=== PATIENT | female | born 1985 | race Caucasian/White ===

== ENCOUNTER 2025-07-09 10:48 | Outpatient (CLI) | payer MEDICAID, SELFPAY ==
--- OUTSIDE RECORDS SUMMARY | 2025-05-17 08:15 | XMS_ITS | Encounter Summary ---
Author Organization Healthcare Address [address] [place] [address] Care Team Providers Care Pet Store Merchandiser Name Role Phone Pcp, No Primary Care Provider Felecia Lloyd Unavailable Unavailable Reason for Referral * Consultation (Routine) - Authorized Specialty Diagnoses / Procedures Referred By Gee t Referred To Contact Psychiatry Diagnoses Schizophrenia, unspecified type (CMS/HCC) Emerald Berger APRN, DNP [address] [address] Phone: tel: fax: Referral ID Status Reason Start Date Expiration Date Visits Requested Visits Authorized [id number] Authorized Specialty Services Required 05/17/2025 11/16/2026 1 1 Reason for Visit * Reason Comments Initial Visit Encounter Details Date Type Department Care Team ([facility] Contact Info) Description 05/17/2025 9:15 AM EDT Initial Medical Office Building Obstetrics and Gynecology [address] [facility], [address] [place] [address] Emerald Berger APRN, DNP [address] [address] [place]: [id number] Social History Tobacco Use Types Packs/Day Years Used Date Smoking Tobacco: Every Day Cigarettes Smokeless Tobacco: Never Alcohol Use Standard Drinks/Week Comments Not Currently 0 (1 standard drink = 0.6 oz pur e alcohol) no alcohol for 9 weeks CAGE ASSESSMENT Answer Date Recorded Cage unable to access Not on file 03/19/2024 Maximum number of drinks you had on a given occasion in the last month? 5 or more drinks 03/19/2024 How many alcoholic Beverages do you typically drink in a week? 8 - 14 per week 03/19/2024 Have you ever felt you shoul d CUT down on your drinking? 0 03/19/2024 Have you been ANNOYED by peo ple criticizing your drinking? 0 03/19/2024 Have you felt GUILTY about your drinking? 0 03/19/2024 Have you had a drink first t paul in the morning (EYE-MARINE ELECTRICIAN APPRENTICE) to steady your nerves or to get rid of a hangover? 0 03/19/2024 CAGE Questionnaire Score 0 024 Estimated Date of Delivery Comme nts Yes 08/13/2025 Based on Ultraso und Sex and Gender Information Value Date Recorded Sex Assigned at Female 02/01/2023 3:22 PM EDT Legal Sex Female 6:55 PM EDT Gender Identity Female 02/01/2023 3:22 PM EDT Sexual Orientation Not on file documented as of this encounter Last Filed Vital Signs Vital Sign Reading Time Taken Comments Blood Pressure 123/81 05/17/2025 9:41 AM EDT Pulse 92 05/17/2025 9:41 AM EDT Temperature 35.3 C (95.6 F) 05/17/2025 9:41 AM EDT Respiratory Rate 17 05/17/2025 9:41 AM EDT Oxygen Saturation 99% 05/17/2025 9:41 AM EDT Inhaled Oxygen Concentration - - Weight 88.6 kg (195 lb 6.4 oz) 05/17/2025 9:41 A M EDT Height 185.4 cm (6' 1 ) 05/17/2025 9:41 AM EDT Body Mass Index 25.78 05/17/2025 9:41 AM EDT documented in this encounter Miscellaneous Notes * Progress Notes - Emerald Berger, ELECTRIC ORGAN ASSEMBLER AND CHECKER, DNP - 05/17/2025 9:15 AM EDT Initial Note Subjective Caitlin Goldberg is a 39 y.o. presenting for an initial visit. LMP unknown (around November 2024). History of irregular menses and also has Nexplanon in place that was placed 13 years ago. Pos UPT early January 2025. Denies VB since LMP. Starting to feel movement. Social history: Recently incarcerated (released 04/2024). Currently homeless (has been homeless the majority of the past 10 years). At times stays in hotel rooms. Mother is with her today and support person. Children are living with mother. History of alcohol abuse, but has not been drinking for 9 weeks. Also a history of polysubstance abuse. OB History Para Term AB Living 4 3 3 3 SAB IAB Ectopic Multiple Live Births 3 # Outcome Date GA Lbr Aleksandar/2nd Weight Sex Type Anes PTL Lv 4 Current 3 Term 2011 F Vag-Spont 2 Term 2009 F Vag-Spont 1 Term 2003 M Vag-Spont Past Medical History She has a past medical history of Generalized anxiety disorder, Hypoglycemia, PTSD (post-traumatic stress disorder), and Schizophrenia. Past Surgical History She has a past surgical history that includes tonsillectomy w/ adenoidectomy. Social History She reports that she has been smoking cigarettes. She has never used smokeless tobacco. She reportsthat she does not currently use alcohol. She reports that she does not currently use drugs after having used the following drugs: Methamphetamines, Heroin, Fentanyl, and Marijuana. Family History Her family history includes Breast cancer in an other family member; Diabetes in her mother's brother; Hypertension in her father; Throat cancer in her paternal grandmother. Allergies She is allergic to toradol [ketorolac tromethamine]. Current Medications She has a current medication list which includes the following prescription(s): vitamins. Review of Systems See HPI, otherwise neg. Objective Physical Exam Visit Vitals BP 123/81 Pulse 92 Temp (!) 35.3 ??C (95.6 ??F) (Tympanic) Resp 17 Pregravid weight: Pregravid weight not on file Pregravid BMI: Could not be calculated Body mass index is 25.78 kg/m??. See encounter summary and flowsheet for exam details. Physical Exam Vitals and nursing note reviewed. Skin: Comments: Nexplanon palpated in LUE Neurological: Mental Status: She is alert and oriented to person, place, and time. Psychiatric: Mood and Affect: Affect is labile and tearful. Thought Content: Thought content normal. Judgment: Judgment normal. Assessment/Plan Assessment & Plan Encounter for supervision of normal , antepartum, unspecified Patient became agitated and left prior to completion of appointment today. She did return and agreeto a BSUS and labs. Declines Nexplanon removal. RTC in 2 weeks Orders: Rubella Antibody IgG; Future CBC W/O Differential; Future Urine Culture; Future Type and Screen; Future Chlamydia trachomatis DNA by PCR; Future HIV 1 & 2 Antibody/Antigen Screen w/Reflex to HIV 1/2 Differentiation Hepatitis B Surface Antigen; Future Hepatitis C Antibody w/Reflex to HCV Quant PCR; Future Neisseria gonorrhea DNA by PCR; Future Treponema Pallidum (Syphilis) Antibodies with Reflex to RPR and RPR Titer (Those with NO known Syphilis); Future Vit-Fe Fumarate-FA ( Vitamins) 28-0.8 MG tablet; Take 1 tablet by mouth daily. Alcoholism (CMS/HCC) -Not currently using, last use 9 weeks ago Schizophrenia, unspecified type (CMS/HCC) -Not currently on medication -Psych referral placed today Orders: Ambulatory referral to Psychiatry; Future Substance use disorder -Not currently using any substance other than marijuana. Verbally agreed to UDS. -Discussed Pathways, but patient declines referral documented in this encounter Plan of Treatment Scheduled Orders Name Type Priority Associated Diagnoses Orde r Schedule Rubella Antibody IgG Lab Routine Encounter for supervision of normal , antepartum, unspecified Expected: 05/15/2025 (Approximate), Expires: 11/12/2026 CBC W/O Differential Lab Routine Encounter for supervision of normal , antepartum, unspecified Expected: 05/15/2025 (Approximate), Expires: 11/12/2026 Type and Screen Lab Routine Encounter for supervision of normal , antepartum, unspecified Expected: 05/15/2025 (Approximate), Expires: 11/12/2026 HIV 1 & 2 Antibody/Antigen Screen w/Reflex to HIV 1/2 Differentiation Lab Routine Encounter for supervision of normal , antepartum, unspecified Ordered: 05/15/2025 Hepatitis B Surface Antigen Lab Routine Encounter for supervision of normal , antepartum, unspecified Expected: 05/15/2025 (Approximate), Expires: 11/12/2026 Hepatitis C Antibody w/Reflex to HCV Quant PCR Lab Routine Encounter for supervision of normal , antepartum, unspecified Expected: 05/15/2025 (Approximate), Expires: 11/12/2026 Treponema Pallidum (Syphilis) Antibodies with Reflex to RPR and RPR Titer (Those with NO known Syphilis) Lab Routine Encounter for supervision of normal , antepartum, unspecified Expected: 05/15/2025 (Approximate), Expires: 11/12/2026 HIV 1 & 2 Antibody/Antigen Screen Lab Routine Encounter for supervision of normal , antepartum, unspecified Ordered: 05/15/2025 Scheduled Referrals Name Type Priority Associated Diagnoses Order Schedule Ambulatory referral to Psychiatry Outpatient Referral Routine Schizophrenia, unspecified type ([facility]) 1 Occurrences starting 05/17/2025 until 11/18/2026 documented as of this encounter Procedures Procedure Name Priority Date/Time Associated Diagnosis Comments CHLAMYDIA TRACHOMATIS DNA BY PCR Routine 05/17/2025 12:14 PM EDT Encounter for supervision of normal , antepartum, unspecified NEISSERIA GONORRHEA DNA BY PCR Routine 05/17/2025 12:14 PM EDT Encounter for supervision of normal , antepartum, unspecified URINE CULTURE Routine 05/17/2025 12:14 PM EDT Encounter for supervision of normal , antepartum, unspecified documented in this encounter Results * Neisseria gonorrhea DNA by PCR (05/17/2025 12:14 PM EDT) Neisseria gonorrhea DNA PCR Result Not Detected Not Detected. 05/18/2025 4:20 PM EDT [facility] Urine Urine specimen / Unknown Non-blood Collection / Unknown 05/17/2025 12:14 PM EDT 05/17/2025 12:14 PM EDT Narrative [facility] - 05/18/2025 4:20 PM EDT This test is performed by the Carvajal m2000 instrument for Real Time PCR C. trachomatis and N. gonorrhea. This test is FDA approved for use with endocervical, vaginal, and urine specimens. This test is used for clinical purposes. It should not be regarded as invesigational or for research. The [facility] Clinical Microbiology Laboratory is certified under the Clinical Laboratory Improvement Amendments of 1988 (CLIA-88) as qualified to perform high complexity clinical laboratory testing. Emerald Berger APRN, MIRA LAB MICROBIOLOGY - GE NERAL ORDERABLES Final Result Performing Organization Address City/[facility]/[place] [address] * Chlamydia trachomatis DNA by PCR (05/17/2025 12:14 PM EDT) Chlamydia trachomatis DNA PCR Result Not Detected Not Detected 05/18/2025 4:20 PM EDT [facility] Urine Urine specimen / Unknown Non-blood Collection / Unknown 05/17/2025 12:14 PM EDT 05/17/2025 12:14 PM EDT Narrative [facility] - 05/18/2025 4:20 PM EDT This test is performed by the Carvajal m2000 instrument for Real Time PCR C. trachomatis and N. gonorrhea. This test is FDA approved for use with endocervical, vaginal, and urine specimens. This test is used for clinical purposes. It should not be regarded as invesigational or for research. The [facility] Clinical Microbiology Laboratory is certified under the Clinical Laboratory Improvement Amendments of 1988 (CLIA-88) as qualified to perform high complexity clinical laboratory testing. Emerald Berger APRN, MIRA LAB MICROBIOLOGY - GE NERAL ORDERABLES Final Result Performing Organization Address [facility]/[place] [address] * (ABNORMAL) Urine Culture (05/17/2025 12:14 PM EDT) Culture >=100,000 CFU/mL - Biotype 1 Escherichia coli ESBL(AA) MINDY 05/21/2025 12:32 PM EDT [facility] Comment: This isolate has been identified using the FDA Approved MALDI Delivyper CA System Edited result: Previously reported as Gram Negative Santy on 05/18/2025 at 1710 EDT. Edited result: Previously reported as Escherichia coli on 05/20/2025 at 1415 EDT. Culture >=100,000 CFU/mL - Biotype 2 Escherichia coli ESBL(AA) MINDY 05/21/2025 12:32 PM EDT [facility] Comment: This isolate has been identified using the FDA Approved MALDI Delivyper CA System The organism value for this result has been updated. These results have been appended to the previously preliminary verified report. Edited result: Previously reported as Gram Negative Santy on 05/19/2025 at 1353 EDT. Edited result: Previously reported as Escherichia coli on 05/20/2025 at 1415 EDT. Urine Urine specimen obtained by clean catch procedure / Unknown Non-blood Collection / Unknown 05/17/2025 12:14 PM EDT 05/17/2025 12:14 PM EDT Narrative Organism Antibiotic Method Susceptibility Escherichia coli ESBL Ampicillin MINDY >16 ug/ml: Resistant Escherichia coli ESBL Ampicillin/Sulbactam MINDY 16/8 ug/ml: Resistant Escherichia coli ESBL Aztreonam MINDY >16 ug/ml: Resistant Escherichia coli ESBL Cefazolin MINDY >16 ug/ml: Resistant Comment:Breakpoints when cefazolin is used for therapy of uncomplicated UTIs due to E. coli, K. pneumoniae, and P. mirabilis. Breakpoints are based on a dosage regimen of 1 g administered every 12 hours. Cefazolin should be used as a surrogate to predict susceptibility for all oral cephalosporins (including cephalexin and cefdinir) to E. coli, Klebsiella spp., and P. mirabilis isolated from the urine. Escherichia coli ESBL Cefepime MINDY 8 ug/ml: Resistant Escherichia coli ESBL Ceftriaxone MINDY >32 ug/ml: Resistant Escherichia coli ESBL Ciprofloxacin MINDY 0.5 ug/ml: Intermediate Escherichia coli ESBL Ertapenem MINDY <=0.25 ug/ml: Susceptible Escherichia coli ESBL Gentamicin MINDY <=2 ug/ml: Susceptible Escherichia coli ESBL Levofloxacin MINDY 0.5 ug/ml: Susceptible Escherichia coli ESBL Meropenem MINDY <=0.5 ug/ml: Susceptible Escherichia coli ESBL Nitrofurantoin MINDY <=16 ug/ml: Susceptible Escherichia coli ESBL Piperacillin/Tazobactam MINDY <=2/4 ug/ml: Resistant Escherichia coli ESBL Tetracycline MINDY <=2 ug/ml: Susceptible Escherichia coli ESBL Tobramycin MINDY <=2 ug/ml: Susceptible Escherichia coli ESBL Trimethoprim/Sulfa methoxazol e MINDY >2/38 ug/ml: Resistant Escherichia coli ESBL Ampicillin MINDY >16 ug/ml: Resistant Escherichia coli ESBL Ampicillin/Sulbactam MINDY >16/8 ug/ml: Resistant Escherichia coli ESBL Aztreonam MINDY 8 ug/ml: Resistant Escherichia coli ESBL Cefazolin MINDY >16 ug/ml: Resistant Comment:Breakpoints when cefazolin is used for therapy of uncomplicated UTIs due to E. coli, K. pneumoniae, and P. mirabilis. Breakpoints are based on a dosage regimen of 1 g administered every 12 hours. Cefazolin should be used as a surrogate to predict susceptibility for all oral cephalosporins (including cephalexin and cefdinir) to E. coli, Klebsiella spp., and P. mirabilis isolated from the urine. Escherichia coli ESBL Cefepime MINDY 4 ug/ml: Resistant Escherichia coli ESBL Ceftriaxone MINDY >32 ug/ml: Resistant Escherichia coli ESBL Ciprofloxacin MINDY 0.5 ug/ml: Intermediate Escherichia coli ESBL Ertapenem MINDY <=0.25 ug/ml: Susceptible Escherichia coli ESBL Gentamicin MINDY <=2 ug/ml: Susceptible Escherichia coli ESBL Levofloxacin MINDY 0.5 ug/ml: Susceptible Escherichia coli ESBL Meropenem MINDY <=0.5 ug/ml: Susceptible Escherichia coli ESBL Nitrofurantoin MINDY <=16 ug/ml: Susceptible Escherichia coli ESBL Piperacillin/Tazobactam MINDY <=2/4 ug/ml: Resistant Escherichia coli ESBL Tetracycline MINDY <=2 ug/ml: Susceptible Escherichia coli ESBL Tobramycin MINDY <=2 ug/ml: Susceptible Escherichia coli ESBL Trimethoprim/Sulfa methoxazol e MINDY 1/19 ug/ml: Susceptible Emerald Berger ELECTRIC ORGAN ASSEMBLER AND CHECKER, DNP LAB MICROBIOLOGY - GE NERAL [place] [address] documented in this encounter Visit Diagnoses Diagnosis Encounter for supervision of normal , antepartum, unspecified - Primary Alcoholism (CMS/HCC) Other and unspecified alcohol dependence, unspecified drinking behavior Schizophrenia, unspecified type (CMS/HCC) Substance use disorder documented in this encounter Additional Health Concerns Assessment Noted Time A fall risk assessment has been complete d for the patient 05/17/2025 9:55 AM EDT A Body Mass Index follow-up plan has been documented for the patient 05/17/2025 10:48 AM EDT documented as of this encounter Care Teams Pet Store Merchandiser Relationship Specialty Start Date End Date Pcp, [place] [address] PCP - General Family Medicine 02/01/23 Felecia Monreal Community Health Worker 05/17/25 documented as of this encounter
--- OUTSIDE RECORDS SUMMARY | 2025-05-17 09:46 | XMS_ITS | Encounter Summary ---
Author Organization Healthcare Address [address] [place] [address] Care Team Providers Care Bank Advisor Name Role Phone Pcp, No Primary Care Provider Felecia Lloyd Unavailable Unavailable Reason for Visit * Imaging (Routine) - Closed Specialty Diagnoses / Procedures Referred By Gee t Referred To Contact Diagnoses Substance use disorder AMA (advanced maternal age) multigravida 35+, unspecified trimester Late care affecting , antepartum Procedures OB US Detail Anatomy OB US 14+ Weeks Anatomy Scan Emerald Berger, CRITICAL POWER INSTALL TECHNICIAN, DNP [address] [address] Phone: tel: fax: Referral ID Status Reason Start Date Expiration Date Visits Re quested Visits Authorized [id number] Closed 05/17/2025 11/16/2026 1 1 Encounter Details Date Type Department Care Team (Latest Contact Info) Description 05/17/2025 10:46 AM EDT - 05/17/2025 11:59 PM EDT Hospital Encounter Medical Office Building Obstetrics and Gynecology [address] [facility], [address] [place] [address] Encounter for supervision of normal , antepartum, [...] drink first t paul in the morning (EYE-ACCOUNTING TUTOR) to steady your nerves or to get [...] Please navigate to the Imaging tab in [employer] for review. This message has been generated by the interface. Narrative Procedure Note mEily Muinz MD - 05/17/2025 IMPRESSION: The OB Ultrasound you requested has been resulted. Please navigate to theImaging tab in [employer] for review. This message has been generated by [facility] Emerald Berger APRN, DNP IMG OB US PROCEDURES Final Result [...] documented as of this encounter Care Teams Bank Advisor Relationship Specialty Start Date End Date Pcp, Shruthi [address] [place] [address] PCP - General Family Medicine 02/01/23 Felecia Monreal [facility] Worker 05/17/25 documented as of this encounter
--- OUTSIDE RECORDS SUMMARY | 2025-06-02 13:30 | XMS_ITS | Encounter Summary ---
Author Organization Healthcare Address [address] [place] [address] Care Team Providers Care Double Head Machine Operator Name Role Phone Pcp, No Primary Care Provider Unavailabl e Felecia Monreal Unavailable Unavailable Reason for Visit * Reason Comments Routine Visit Encounter Details Date Type Department Care Team (Latest Contact Info) Description 06/02/2025 2:30 PM EDT Routine Medical Office Building Obstetrics and Gynecology [address], [address] [place] [address] Emerald Berger, CABIN CLEANER, DNP [address] [place] [address] Insufficient care in third trimester (Primary Dx); [...] drink first t paul in the morning (EYE-BRAND MARKETING COORDINATOR) to steady your nerves or to get [...] money problems,housing, access to food, and child development instructor. If you can???t get to medical appointments, [...] symptoms Abnormal vaginal discharge Phone Numbers [facility] ([facility]): [facility] Obstetrics & Gynecology: [facility] Clinic: [facility]: Family Practice: [facility] Obstetrics & Gynecology [place]: [facility] Obstetrics & Gynecology [place]: What Is Group B Strep? Group B [...] or irregular heart rate Beginning to Breastfeed: Bowo-tt-Pdxp What is dgnd-mm-eqal? After , your nurse will clean and dry your baby. Your baby will then be placed on your chest dktb-ut-yoif right away. Your baby???s shoulders should be [...] the first time. Your baby will stay hvan-lo-sctx with you for as long as you like after . If you get too sleepy, let your nurse know. Only you or your partner can do qzpg-ks-plrv with your baby these first few hours. Visitors may come in, but you must not pass your baby around during this time. This could cause your baby to get cold and then sick. Msgt-ks-pnfw is a great way to remind your [...] also lowers your risk of depression. Being fwfw-wc-jbrj with your baby can help reduce your [...] for feeding. Placing your baby in the bdev-qj-jxfn position on your chest. This can help [...] documented as of this encounter Care Teams Double Head Machine Operator Relationship Specialty Start Date End Date Pcp, [place] [address] PCP - General Family Medicine 02/01/23 Felecia Monreal [facility] Worker 05/17/25 documented as of this encounter
--- OUTSIDE RECORDS SUMMARY | 2025-07-09 10:57 | XMS_ITS | Clinical Summary ---
Author Organization Healthcare Address [address] [place] [address] Care Team Providers Care Avionics System Engineer Name Role Phone Pcp, No Primary Care Provider Felecia Lloyd Unavailable Unavailable Allergies Active Allergy Reactions Criticality Noted Date Comments Ketorolac Tromethamine Hives Medium 02/01/2023 Medications * This document contains information received from the source organization and may not represent a complete record from that organization. Vit-Fe Fumarate-FA ( Vitamins) 28-0.8 MG tabletIndication s:Encounter for supervision of normal , antepartum, unspecified Take 1 tablet by mouth daily. 90 tablet 3 5 05/17/20 26 Active nitrofurantoin, macrocrystal-mon ohydrate, (Macrobid) 100 MG capsuleIndicatio ns:Urinary tract infection in mother during third trimester of Take 1 capsule by mouth 2 times a day. 14 capsule 5 Active Additional Information Patient not taking.Reported on 06/02/2025 famotidine (Pepcid) 20 MG tabletIndication s:Heartburn during in third trimester Take 1 tablet by mouth 2 times a day. 90 tablet 3 5 Active Active Problems Problem Noted Date Diagnosed Date Acute cholecystitis 02/01/2023 Estimated Date of Delivery Comme nts Yes 08/13/2025 Based on Ultraso und Encounters * This document contains information received from the source organization and may not represent a complete record from that organization. Date Type Department Care Team Description 07/06/2025 Telephone Medical Office Building Obstetrics and Gynecology [address] [address], [address] [place] [address] Cindy Walden MD 06/02/2025 2:30 PM EDT Routine Medical Office Building Obstetrics and Gynecology [address], [address] [place] [address] Emerald Berger APRN, DNP Insufficient care in third trimester (Primary Dx); Alcoholism (CMS/HCC); Schizophrenia, unspecified type (CMS/HCC); Substance use disorder; Heartburn during in third trimester; Urinary tract infection in mother during third trimester of 06/02/2025 Travel 05/22/2025 Results Follow-Up Medical Office Building Obstetrics and Gynecology [address] [facility] [address] [facility], [address] [place] [address] Emerald Berger APRN, DNP 05/18/2025 Results Follow-Up Medical Office Building Obstetrics and Gynecology [address] [address], [address] [place] [address] Emerald Berger APRN, DNP 05/17/2025 10:46 AM EDT - 05/17/2025 11:59 PM EDT Hospital Encounter Medical Office Building Obstetrics and Gynecology [address], [address] [place] [address] Encounter for supervision of normal , antepartum, unspecified ; Substance use disorder; AMA (advanced maternal age) multigravida 35+, unspecified trimester; Late care affecting , antepartum Discharge Disposition: Home or Self Care 05/17/2025 9:15 AM EDT Initial Medical Office Building Obstetrics and Gynecology [address] [facility] [address], [address] [place] [address] Emerald Berger APRN, DNP [place]: [id number] 05/17/2025 Patient Outreach Medical Office Building Obstetrics and Gynecology [address] [address], [address] [place] [address] Felecia Monreal Community Resources; Other ([facility] Initial Encounter) 05/17/2025 Patient Outreach Medical Office Building Obstetrics and Gynecology [address] [facility], [address] [place] [address] Felecia Monreal Community Resources; Other ( Community Health Work Program Enrollment) 05/17/2025 Travel 04/21/2025 Telephone Medical Office Building Obstetrics and Gynecology [address] [facility] [address] [facility], [address] [place] [address] Emerald Berger, MOBILE BATTERY TECHNICIAN, DNP from Last 3 Months Family History Medical History Relation Name Comments Hypertension Father Diabetes Mother's Brother Breast cancer Other great grand mother Throat cancer Paternal Grandmother Relation Name Status Comments Father Mother's Brother Other great grand mother Paternal Grandmother Social History Tobacco Use Types Packs/Day Years Used Date Smoking Tobacco: Every Day Cigarettes Smokeless Tobacco: Never Tobacco Cessation:Ready to Q uit: Not Asked; Counseling Given: Not Answered Alcohol Use Standard Drinks/Week Comments Not Currently [...] drink first t paul in the morning (EYE-INDUSTRY SEGMENT SPECIALIST) to steady your nerves or to get rid of a hangover? 0 03/19/2024 CAGE Questionnaire Score 0 024 Estimated Date of Delivery Comme nts Yes 08/13/2025 Based on Ultraso und Sex and Gender Information Value Date Recorded Sex Assigned at Female 02/01/2023 3:22 PM EDT Legal Sex Female 6:55 PM EDT Gender Identity Female 02/01/2023 3:22 PM EDT Sexual Orientation Not on file Last Filed Vital Signs Vital Sign Reading Time Taken Comments Blood Pressure 127/77 06/02/2025 3:07 PM EDT Pulse 105 06/02/2025 3:07 PM EDT Temperature 35.3 C (95.6 F) 05/17/2025 9:41 AM EDT Respiratory Rate 17 06/02/2025 3:07 PM EDT Oxygen Saturation 98% 06/02/2025 3:07 PM EDT Inhaled Oxygen Concentration - - Weight 88.3 kg (194 lb 10.7 oz) 06/02/2025 3:07 PM EDT Height 185.4 cm (6' 1 ) 05/17/2025 9:41 AM EDT Body Mass Index 25.68 05/17/2025 9:41 AM EDT Plan of Treatment Health Maintenance Due Date Last Done Comments [facility]-Depression Screening 1985 [facility]-Infant/Child/Adol SDOH Screenings 1985 [facility]-Varicella Vaccines (1 of 2 - 13+ 2-dose series) 1998 [facility]- SDOH Screenings 2003 [facility]-Adult SDOH Screenings 2003 [facility]-Pneumococcal Vaccine: Pediatrics (0 to 5 Years) and At-Risk Patients (6 to 49 Years) (1 of 2 - PCV) 2004 [facility]-DTaP,Tdap,and Td Vaccine s (1 - Tdap) 07/31/2004 2004 [facility]-Pap Smear 2006 HPV Vaccines (1 - 3-dose SCD M series) 2012 [facility]-Cervical Cancer Screening 2015 [facility]-HPV/Cotest 2015 [id number] Vaccine (1 - 2024- season) 2025 [facility]-Influenza Vaccine (#1) 2025 [facility]-RSV Vaccine: 60+ Years o r (1 - Risk 1-dose series) 06/18/2025 [facility]-Zoster Vaccines (1 of 2) 2035 [facility]-Hepatitis B Vaccines Completed 998, 06/08/1997, 05/08/1997 [facility]-Hepatitis A Vaccines Aged Out 07/07/2018 No longer eligible based on patient's age to complete this topic [facility]-HIV Screening Completed 03/19/2024 [facility]-Hepatitis C Screening Completed 2023, 02/02/2023, 01/01/2019 [facility]-Obesity Intervention Completed 025, 05/17/2025 [facility]-HIB Vaccines Aged Out No longer e ligible based on patient's age to complete this topic [facility]-IPV Vaccines Aged Out No longer e ligible based on patient's age to complete this topic [facility]-Rotavirus Vaccines Aged Out No lo nger eligible based on patient's age to complete this topic Procedures Procedure Name Priority Date/Time Associated Diagnosis Comments NEISSERIA GONORRHEA DNA BY PCR Routine 05/17/2025 12:14 PM EDT Encounter for supervision of normal , antepartum, unspecified CHLAMYDIA TRACHOMATIS DNA BY PCR Routine 05/17/2025 12:14 PM EDT Encounter for supervision of normal , antepartum, unspecified URINE CULTURE Routine 05/17/2025 12:14 PM EDT Encounter for supervision of normal , antepartum, unspecified OB US DETAIL ANATOMY Routine 05/17/2025 12:08 PM EDT Substance use disorder AMA (advanced maternal age) multigravida 35+, unspecified trimester Late care affecting , antepartum HEPATITIS C ANTIBODY - ED W/REFLEX TO HCV QUANT PCR STAT 03/19/2024 2:09 AM EDT ED HIV 1/2 ANTIBODY/ANTIGEN SCREEN WITH REFLEX TO HIV I/II DIFFERENTIATION STAT 03/19/2024 2:09 AM EDT from Last 3 Months or Most Recently Relevant to Health Maintenance Results * Chlamydia trachomatis DNA by PCR (05/17/2025 12:14 PM EDT) Chlamydia trachomatis DNA PCR Result Not Detected Not Detected 05/18/2025 4:20 PM EDT [facility] Urine Urine specimen / Unknown Non-blood Collection / Unknown 05/17/2025 12:14 PM EDT 05/17/2025 12:14 PM EDT Narrative [facility] - 05/18/2025 4:20 PM EDT This test is performed by the [employer] instrument for Real Time PCR C. trachomatis and N. gonorrhea. This test is FDA approved for use with endocervical, vaginal, and urine specimens. This test is used for clinical purposes. It should not be regarded as invesigational or for research. The [facility] is certified under the Clinical Laboratory Improvement Amendments of 1988 (CLIA-88) as qualified to perform high complexity clinical laboratory testing. Emerald Berger APRN, MIRA LAB MICROBIOLOGY - GE NERAL ORDERABLES Final Result Performing Organization Address [facility] de Phone Number [facility] [address] [place] [address] * Neisseria gonorrhea DNA by PCR (05/17/2025 12:14 PM EDT) Neisseria gonorrhea DNA PCR Result Not Detected Not Detected. 05/18/2025 4:20 PM EDT [facility] Urine Urine specimen / Unknown Non-blood Collection / Unknown 05/17/2025 12:14 PM EDT 05/17/2025 12:14 PM EDT Narrative [facility] - 05/18/2025 4:20 PM EDT This test is performed by the [employer] instrument for Real Time PCR C. trachomatis and N. gonorrhea. This test is FDA approved for use with endocervical, vaginal, and urine specimens. This test is used for clinical purposes. It should not be regarded as invesigational or for research. The [facility] is certified under the Clinical Laboratory Improvement Amendments of 1988 (CLIA-88) as qualified to perform high complexity clinical laboratory testing. Emerald Berger APRN, DNP LAB MICROBIOLOGY - NERAL ORDERABLES Final Result Performing Organization Address [facility] de Phone Number [facility] [address] [place] [address] * (ABNORMAL) Urine Culture (05/17/2025 12:14 PM EDT) Culture >=100,000 CFU/mL - Biotype 1 Escherichia coli ESBL(AA) MINDY 05/21/2025 12:32 PM EDT [facility] Comment: This isolate has been identified using the FDA Approved [employer] System Edited result: Previously reported as Gram Negative Santy on 05/18/2025 at 1710 EDT. Edited result: Previously reported as Escherichia coli on 05/20/2025 at 1415 EDT. Culture >=100,000 CFU/mL - Biotype 2 Escherichia coli ESBL(AA) MINDY 05/21/2025 12:32 PM EDT [facility] Comment: This isolate has been identified using the FDA Approved [employer] [place] System The organism value for this [...] Trimethoprim/Sulfa methoxazol e MINDY 1/19 ug/ml: Susceptible us Emerald Berger APRN, MIRA LAB MICROBIOLOGY - [employer] [facility] ORDERABLES Final Result [facility] [address] [place] [address] * OB US Detail Anatomy (05/17/2025 12:08 PM EDT) Anatomical Region Laterality Modality Body Ultrasound 05/17/2025 11:3 5 AM EDT Impressions 05/17/2025 1:45 PM EDT The OB Ultrasound you requested has been resulted. Please navigate to the Imaging tab in [employer] for review. This message has been generated by the interface. Narrative Procedure Note Emily Muniz MD - 05/17/2025 IMPRESSION: The OB Ultrasound you requested has been resulted. Please navigate to theImaging tab in [employer]Span for review. This message has been generated by theinterface. us Emerald Berger MOBILE BATTERY TECHNICIAN, DNP IMG OB US PROCEDURES Final Result * ED HIV 1/2 Antibody/Antigen Screen w/Reflex to HIV 1/2 Differentiation (03/19/2024 2:09 AM EDT) HIV 1 & 2 Antibody/Antigen Screen Non Reactive Non Reactive 03/19/2024 2:54 AM EDT [facility] Comment:Screening for HIV 1 & 2 antibodies, and P24 antigen is NONREACTIVE. No confirmatory testing is required. Blood Venous blood specimen / Unknown Venipuncture / Unknown 03/19/2024 2:09 AM EDT 03/19/2024 2:13 AM EDT [facility] LAB BLOOD ORDERABLES Fi nal Result Performing Organization Address [facility] de Phone Number [facility] [address] [place] [address] * Hepatitis C Antibody - ED (03/19/2024 2:09 AM EDT) Hepatitis C Antibody Negative Negative 03/19/2024 2:50 AM EDT [facility] Blood Venous blood specimen / Unknown Venipuncture / Unknown 03/19/2024 2:09 AM EDT 03/19/2024 2:13 AM EDT [facility] LAB BLOOD ORDERABLES Fi nal Result Performing Organization Address City/[facility] Co de Phone Number [facility] [address] [place] [address] from Last 3 Months or Most Recently Relevant to Health Maintenance Additional Health Concerns Infection Onset Date Last Indicated ESBL Comment:Urine culture collected 05/17/2025 resulted positive for Escherichia coli ESBL. This patient will require contact precautions indefinitely. Do not resolve this infection. 05/17/2025 05/17/2025 Insurance [facility] MEDICAID Advance Directives * Full Code (Latest Code Status on File) Date Activated Date Inactivated Comments 02/01/2023 5:11 PM 02/03/2023 2:15 PM Question Answer Comments Patient has decision-making capacity? Yes Care Teams Avionics System Engineer Relationship Specialty Start Date End Date Pcp, No [address] [place] [address] PCP - General Family Medicine 02/01/23 Felecia Monreal Community Health Worker 05/17/25
--- OUTSIDE RECORDS SUMMARY | 2025-07-09 10:57 | XMS_ITS | Encounter Summary ---
Author Organization Healthcare Address [address] [place] [address] Care Team Providers Care Lead Operator Name Role Phone Pcp, No Primary Care Provider Felecia Lloyd Unavailable Unavailable Encounter Details Date Type Department Care Team (Latest Contact Info) Description 06/02/2025 Travel Social History Tobacco Use Types Packs/Day Years [...] drink first t paul in the morning (EYE-HAMMER REPAIRER) to steady your nerves or to get [...] on file documented as of this encounter Plan of Treatment Not on file documented as of this encounter Visit Diagnoses Not on filedocumented in this encounter Additional Health Concerns Infection [...] documented as of this encounter Care Teams Lead Operator Relationship Specialty Start Date End Date Pcp, No [address] [place] [address] PCP - General Family Medicine 02/01/23 Felecia Monreal Community Health Worker 05/17/25 documented as of this encounter
--- OUTSIDE RECORDS SUMMARY | 2025-07-09 10:57 | XMS_ITS | Encounter Summary ---
Author Organization Healthcare Address [address] [place] [address] Care Team Providers Care Electric Locomotive Crane Operator Name Role Phone Pcp, No Primary Care Provider Unavailabl e Felecia Monreal Unavailable Unavailable Encounter Details Date Type Department Care Team ([facility] Contact Info) Description 07/06/2025 Telephone Medical Office Building Obstetrics and Gynecology [address] [facility] [address] [facility], [address] [place] [address] Cindy Walden MD [address] [facility] [address] [facility] [address] [place] [address] Social History Tobacco Use Types Packs/Day Years [...] drink first t paul in the morning (EYE-ROOF TILER) to steady your nerves or to get [...] on file documented as of this encounter Miscellaneous Notes * Telephone Encounter - Mercedes Smith - 07/06/2025 11:45 AM EST Returned call to patient, patient asking for routine appt on a Thursday morning. Offered 07/17 with Ami Lawrence APRN, pt wanting to see MD due to being 34w4d and has only seen APRNs. Explained to pt that we only have availability with APRNs on the days and times she is asking for, pt stated she would call another doctor. * Telephone Encounter - Delmy Reed - 07/06/2025 11:28 AM EST Clinical Concern/Question Reason for Call: Pt is calling to r/s 06/15 apt. States she needs a Thursday morning apt. Please call. Best contact number: [phone] (mobile) Optimal time of day to reach caller: ANYTIME Additional comments/information from caller: None Note: Please do not reply to this message. Follow-up communication and further actions as a result of this message need to be communicated with the patient directly, if the patient is not active onMyChart. If the patient is active on MyChart, they will receive notification of the communication/outcome via [employer]. documented in this encounter Plan of Treatment [...] documented as of this encounter Care Teams Electric Locomotive Crane Operator Relationship Specialty Start Date End Date Pcp, Shruthi [address] [place] [address] PCP - General Family Medicine 02/01/23 Felecia Monreal Community Health Worker 05/17/25 documented as of this encounter
--- OUTSIDE RECORDS SUMMARY | 2025-07-09 10:58 | XMS_ITS | Encounter Summary ---
Author Organization Healthcare Address [address] [place] [address] Care Team Providers Care Ski Binding Fitter And Repairer Name Role Phone Pcp, No Primary Care Provider Unavailabl e Felecia Monreal Unavailable Unavailable Reason for Visit * Reason Comments Community Resources Other Community Health Work Program Enrollment Encounter Details Date Type Department Care Team ([facility] Contact Info) Description 05/17/2025 Patient Outreach Medical Office Building Obstetrics and Gynecology [address] [facility], [address] [place] [address] Felecia Monreal Community Resources; Other ( Community Health Work Program Enrollment) Social History Tobacco Use Types Packs/Day Years [...] first t paul in the morning (EYE-MARINE SERVICE MANAGER) to steady your nerves or to get [...] as of this encounter Miscellaneous Notes * Progress Notes - Felecia Monreal - 05/17/2025 12:50 PM EDT PCW received a referral from Emerald Berger APRN, MIRA, indicating that the patient is currently experiencing homelessness and alternating between staying in a hotel and living on the street. documented in this encounter Plan of Treatment Not on file documented as of this encounter Visit Diagnoses Diagnosis Unhoused person- Primary Housing instability Need for community resource Needs assistance with community resources documented in this encounter Additional Health Concerns Assessment Noted Time A fall risk assessment has been complete d for the patient 05/17/2025 9:55 AM EDT A Body Mass Index follow-up plan has been documented for the patient 05/17/2025 10:48 AM EDT documented as of this encounter Care Teams Ski Binding Fitter And Repairer Relationship Specialty Start Date End Date Pcp, [place] [address] PCP - General Family Medicine 02/01/23 Felecia Monreal Community Health Worker 05/17/25 documented as of this encounter
--- OUTSIDE RECORDS SUMMARY | 2025-07-09 10:58 | XMS_ITS | Encounter Summary ---
Author Organization Healthcare Address [address] [place] [address] Care Team Providers Care Scudding Inspector Name Role Phone Pcp, No Primary Care Provider Unavailabl e Felecia Monreal Unavailable Unavailable Encounter Details Date Type Department Care Team ([facility] st Contact Info) Description 05/18/2025 Results Follow-Up Medical Office Building Obstetrics and Gynecology [address] [facility] [facility], [address] [place] [address] Emerald Berger, CANDY SEPARATOR ENROBING, DNP [address] [facility] [address] [place] [address] Social History Tobacco Use Types Packs/Day Years [...] drink first t paul in the morning (EYE-ASSISTANT BOILER OPERATOR) to steady your nerves or to get [...] documented as of this encounter Care Teams Scudding Inspector Relationship Specialty Start Date End Date Pcp, [place] [address] PCP - General Family Medicine 02/01/23 Felecia Monreal Community Health Worker 05/17/25 documented as of this encounter
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
--- OUTSIDE RECORDS SUMMARY | 2025-07-09 10:58 | XMS_ITS | Encounter Summary ---
Author Organization Healthcare Address [address] [place] [address] Care Team Providers Care Box Maker Name Role Phone Pcp, No Primary Care Provider Unavailabl e Felecia Monreal Unavailable Unavailable Encounter Details Date Type Department Care Team ([facility] st Contact Info) Description 05/22/2025 Results Follow-Up Medical Office Building Obstetrics and Gynecology [address], [address] [place] [address] Emerald Berger, ART SPECIALIST, DNP [address] [place] [address] Social History Tobacco Use Types [...] drink first t paul in the morning (EYE-VIDEO CAMERA OPERATOR) to steady your nerves or to [...] as of this encounter Visit Diagnoses Diagnosis Urinary tract infection in mother during third trimester of - Primary documented in this encounter Additional Health Concerns [...] documented as of this encounter Care Teams Box Maker Relationship Specialty Start Date End Date Pcp, [place] [address] PCP - General Family Medicine 02/01/23 Felecia Monreal Community Health Worker 05/17/25 documented as of this encounter
--- OUTSIDE RECORDS SUMMARY | 2025-07-09 10:59 | XMS_ITS | Encounter Summary ---
Author Organization Healthcare Address [address] [place] [address] Care Team Providers Care Structural Steel Trades Worker Name Role Phone Pcp, No Primary Care Provider Felecia Lloyd Unavailable Unavailable Encounter Details Date Type Department Care Team (Latest Contact Info) Description 05/17/2025 Travel Social History Tobacco Use Types Packs/Day [...] drink first t paul in the morning (EYE-CHAINMAN) to steady your nerves or to get [...] filedocumented in this encounter Additional Health Concerns Assessment Noted Time A fall risk assessment has been complete d for the patient 05/17/2025 9:55 AM EDT A Body Mass Index follow-up plan has been documented for the patient 05/17/2025 10:48 AM EDT documented as of this encounter Care Teams Structural Steel Trades Worker Relationship Specialty Start Date End Date Pcp, [place] [address] PCP - General Family Medicine 02/01/23 Felecia Monreal Community Health Worker 05/17/25 documented as of this encounter
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
[2025-07-09 11:12] VITALS: BMI 27.8
[2025-07-09 11:22] LABS: Microscopic, Urine URINE MICROSCOPIC (MICROSCOPIC)
[2025-07-09 11:30] VITALS: BP 139/69; PULSE 103; RESP 20; O2SAT 97; BMI 27.8
[2025-07-09 11:51] LABS: Bilirubin,Urine Negative (Negative); Color,Urine YELLOW (Yellow); Glucose,Urine (UA) Negative (Negative); Ketones,Urine Negative (Negative); Leukocyte Esterase,Urine 2+ (Negative); PH,Urine 6.5 (5.0-8.5); Protein,Urine Negative (Negative); Specific Gravity, Urine 1.015 (1.005-1.030); Urobilinogen,Urine 0.2 EU/dl (0.2)
[2025-07-09 12:12] LABS: Bacteria,Urine 2+ /lpf; RBC,Urine Occasional #/hpf (0-3)
== END 2025-07-09 12:17 | disposition home or self-care (01) ==
LOC: OBOUT 10:55 → OB 10:57
PROVIDERS: Visit Provider Obstetrics & Gynecology
DX: O99.891 Other specified diseases and conditions complicating pregnancy (principal); M54.50 Low back pain, unspecified; R10.20 Pelvic and perineal pain unspecified side; Z3A.35 35 weeks gestation of pregnancy
CPT/HCPCS: 81001; 87086; 87088; 87186; 99202

== ENCOUNTER 2025-07-14 10:47 | Outpatient (CLI) | payer MEDICAID, SELFPAY ==
--- OUTSIDE RECORDS SUMMARY | 2025-05-17 08:15 | XMS_ITS | Encounter Summary ---
Author Organization Healthcare Address [address] [place] [address] Care Team Providers Care Buffet Attendant Name Role Phone Pcp, No Primary Care Provider Felecia Lloyd Unavailable Unavailable Reason for Referral * Consultation (Routine) - Authorized Specialty Diagnoses / Procedures Referred By Gee t Referred To Contact Psychiatry Diagnoses Schizophrenia, unspecified type (CMS/HCC) Emerald Berger APRN, DNP [address] [address] Phone: tel: fax: Referral ID Status Reason Start Date Expiration Date Visits Requested Visits Authorized [id number] Authorized Specialty Services Required 05/17/2025 11/16/2026 1 1 Reason for Visit * Reason Comments Initial Visit Encounter Details Date Type Department Care Team ([facility] Contact Info) Description 05/17/2025 9:15 AM EDT Initial Medical Office Building Obstetrics and Gynecology [address], [address] [place] [address] Emerald Berger APRN, DNP [address] [address] [place]: 27w3d Social History Tobacco [...] drink first t paul in the morning (EYE-PATTERNMAKER PLASTER) to steady your nerves or to get [...] Notes * Progress Notes - Emerald Berger, ORTHOPEDICS PEDIATRIC PHYSICIAN, DNP - 05/17/2025 9:15 AM EDT Initial [...] Psychiatry Outpatient Referral Routine Schizophrenia, unspecified type ([facility]) 1 Occurrences starting 05/17/2025 until 11/18/2026 documented [...] Detected Not Detected. 05/18/2025 4:20 PM EDT [facility] Urine Urine specimen / Unknown Non-blood Collection / Unknown 05/17/2025 12:14 PM EDT 05/17/2025 12:14 PM EDT Narrative [facility] - 05/18/2025 4:20 PM EDT This test is performed by the Carvajal m2000 instrument for Real Time PCR C. trachomatis and N. gonorrhea. This test is FDA approved for use with endocervical, vaginal, and urine specimens. This test is used for clinical purposes. It should not be regarded as invesigational or for research. The [facility] Clinical Microbiology Laboratory is certified under the Clinical Laboratory Improvement Amendments of 1988 (CLIA-88) as qualified to perform high complexity clinical laboratory testing. Emerald Berger APRN, MIRA LAB MICROBIOLOGY - GE NERAL ORDERABLES Final Result Performing Organization Address City/[facility]/[place] [address] * Chlamydia trachomatis DNA by PCR (05/17/2025 12:14 PM EDT) Chlamydia trachomatis DNA PCR Result Not Detected Not Detected 05/18/2025 4:20 PM EDT [facility] Urine Urine specimen / Unknown Non-blood Collection / Unknown 05/17/2025 12:14 PM EDT 05/17/2025 12:14 PM EDT Narrative [facility] - 05/18/2025 4:20 PM EDT This test is performed by the Carvajal m2000 instrument for Real Time PCR C. trachomatis and N. gonorrhea. This test is FDA approved for use with endocervical, vaginal, and urine specimens. This test is used for clinical purposes. It should not be regarded as invesigational or for research. The [facility] Clinical Microbiology Laboratory is certified under the Clinical Laboratory Improvement Amendments of 1988 (CLIA-88) as qualified to perform high complexity clinical laboratory testing. Emerald Berger APRN, MIRA LAB MICROBIOLOGY - GE NERAL ORDERABLES Final Result Performing Organization Address [facility]/[place] [address] * (ABNORMAL) Urine Culture (05/17/2025 12:14 PM EDT) Culture >=100,000 CFU/mL - Biotype 1 Escherichia coli ESBL(AA) MINDY 05/21/2025 12:32 PM EDT [facility] Comment: This isolate has been identified using the FDA Approved MALDI just.meyper CA System Edited result: Previously reported as Gram Negative Santy on 05/18/2025 at 1710 EDT. Edited result: Previously reported as Escherichia coli on 05/20/2025 at 1415 EDT. Culture >=100,000 CFU/mL - Biotype 2 Escherichia coli ESBL(AA) MINDY 05/21/2025 12:32 PM EDT [facility] Comment: This isolate has been identified using the FDA Approved MALDI just.meyper CA System The organism value for this [...] <=0.25 ug/ml: Susceptible Escherichia coli ESBL Gentamicin MIDNY <=2 ug/ml: Susceptible Escherichia coli ESBL Levofloxacin [...] e MINDY 1/19 ug/ml: Susceptible Emerald Berger ORTHOPEDICS PEDIATRIC PHYSICIAN, DNP LAB MICROBIOLOGY - GE NERAL ORDERABLES Final Result [address] [address] documented in this encounter Visit Diagnoses Diagnosis [...] documented as of this encounter Care Teams Buffet Attendant Relationship Specialty Start Date End Date Pcp, [place] [address] PCP - General Family Medicine 02/01/23 Felecia Monreal [facility] Health Worker 05/17/25 documented as of this encounter
--- OUTSIDE RECORDS SUMMARY | 2025-05-17 09:46 | XMS_ITS | Encounter Summary ---
Author Organization Healthcare Address [address] [place] [address] Care Team Providers Care Claims Manager Name Role Phone Pcp, No Primary Care Provider Felecia Lloyd Unavailable Unavailable Reason for Visit * Imaging (Routine) - Closed Specialty Diagnoses / Procedures Referred By Gee mendoza Referred To Contact Diagnoses Substance use disorder AMA (advanced maternal age) multigravida 35+, unspecified trimester Late care affecting , antepartum Procedures OB US Detail Anatomy OB US 14+ Weeks Anatomy Scan Emerald Berger, CURTAIN ROLLER ASSEMBLER, DNP [address] [facility] [address] [place] [address] Phone: tel: fax: Referral ID Status Reason Start Date Expiration Date Visits Re quested Visits Authorized [id number] Closed 05/17/2025 11/16/2026 1 1 Encounter Details Date Type Department Care Team (Latest Contact Info) Description 05/17/2025 10:46 AM EDT - 05/17/2025 11:59 PM EDT Hospital Encounter Medical Office Building Obstetrics and Gynecology [address], [address] [place] [id number] Encounter for supervision of normal , antepartum, unspecified ; Substance use disorder; AMA (advanced maternal age) multigravida 35+, unspecified trimester; Late care affecting , antepartum Discharge Disposition: Home or Self Care Social History Tobacco Use Types Packs/Day Years [...] drink first t paul in the morning (EYE-PLANER MILL GRADER) to steady your nerves or to get [...] on file documented as of this encounter Medications at Time of Discharge Vit-Fe Fumarate-FA ( Vitamins) 28-0.8 MG tabletIndications: Encounter for supervision of normal , antepartum, unspecified Take 1 tablet by mouth daily. 90 tablet 3 05/17/2025 05/17/2026 documented as of this encounter Plan of Treatment Not on file documented as of this encounter Procedures Procedure Name Priority Date/Time Associated Diagnosis Comments OB US DETAIL ANATOMY Routine 05/17/2025 12:08 PM EDT Substance use disorder AMA (advanced maternal age) multigravida 35+, unspecified trimester Late care affecting , antepartum documented in this encounter Results * OB US Detail Anatomy (05/17/2025 12:08 PM EDT) Anatomical Region Laterality Modality Body Ultrasound 05/17/2025 11:3 5 AM EDT Impressions 05/17/2025 1:45 PM EDT The OB Ultrasound you requested has been resulted. Please navigate to the Imaging tab in [employer] for review. This message has been generated by the interface. Narrative Procedure Note Emily Muniz MD - 05/17/2025 IMPRESSION: The OB Ultrasound you requested has been resulted. Please navigate to theImaging tab in [employer] for review. This message has been generated by [facility] Emerald Berger CURTAIN ROLLER ASSEMBLER, DNP IMG OB US PROCEDURES Final Result documented in this encounter Visit Diagnoses Diagnosis Encounter for supervision of normal , antepartum, unspecified Substance use disorder AMA (advanced maternal age) multigravida 35+, unspecified trimester Late care affecting , antepartum documented in this encounter Additional Health Concerns Assessment Noted Time A fall risk assessment has been complete d for the patient 05/17/2025 9:55 AM EDT A Body Mass Index follow-up plan has been documented for the patient 05/17/2025 10:48 AM EDT documented as of this encounter Care Teams Claims Manager Relationship Specialty Start Date End Date Pcp, Shruthi [address] [place] [address] PCP - General Family Medicine 02/01/23 Felecia Monreal [facility] Worker 05/17/25 documented as of this encounter
--- OUTSIDE RECORDS SUMMARY | 2025-06-02 13:30 | XMS_ITS | Encounter Summary ---
Author Organization Healthcare Address [address] [place] [address] Care Team Providers Care Tinning Machine Set Up Operator Name Role Phone Pcp, No Primary Care Provider Unavailabl e Felecia Monreal Unavailable Unavailable Reason for Visit * Reason Comments Routine Visit Encounter Details Date Type Department Care Team (Latest Contact Info) Description 06/02/2025 2:30 PM EDT Routine Medical Office Building Obstetrics and Gynecology [address] [facility], [address] [place] [address] Emerald Berger, VP OUTCOMES, [facility] [address] [facility] [address] [place] [phone] Insufficient care in third trimester (Primary Dx); [...] drink first t paul in the morning (EYE-MULTIFOCAL BUTTON INSPECTOR) to steady your nerves or to get [...] transportation, money problems,housing, access to food, and summer child caregiver. If you can???t get to medical appointments, [...] symptoms Abnormal vaginal discharge Phone Numbers [facility] (Triage): [facility] Obstetrics & Gynecology: [facility] Clinic: [facility] [employer] Clinic: Family Practice: [facility] Obstetrics & Gynecology [place]: [facility] Obstetrics & Gynecology Te: What [...] or irregular heart rate Beginning to Breastfeed: Oabn-hp-Duqw What is ohzh-ek-nkdq? After , your nurse will clean and dry your baby. Your baby will then be placed on your chest svzj-na-jhms right away. Your baby???s shoulders should be [...] the first time. Your baby will stay qjtk-xt-ulty with you for as long as you like after . If you get too sleepy, let your nurse know. Only you or your partner can do ucpr-mt-eura with your baby these first few hours. Visitors may come in, but you must not pass your baby around during this time. This could cause your baby to get cold and then sick. Curn-qw-nqdf is a great way to remind your [...] also lowers your risk of depression. Being veuc-po-hisr with your baby can help reduce your [...] for feeding. Placing your baby in the mcno-qh-vtir position on your chest. This can help [...] documented as of this encounter Care Teams Tinning Machine Set Up Operator Relationship Specialty Start Date End Date Pcp, [place] [address] PCP - General Family Medicine 02/01/23 Felecia Monreal [facility] Work[facility] 05/17/25 documented as of this encounter
--- NOTE | 2025-07-14 10:30 | US_ITS ---
PROCEDURE: US OB FOLLOW UP CLINICAL INDICATION: Check growth COMPARISON: No exams were available for comparison FINDINGS: Transabdominal sonographic images of the pelvis were obtained. The following parameters are obtained: From her established due date she is 35weeks 5days Viable fetus in the cephalic presentation with an anterior placenta grade 2. BPD: 35weeks 5days, 57 percentile HC: 36weeks 4days, 38 percentile AC: 37weeks 2days, 92 percentile FL: 35weeks 2days, 31 percentile HC/AC: 0.97 FL/BPD: 0.78 FL/AC: 0.21 Growth percentile: 72 Amniotic fluid index: 10.03cm, MVP 8.0 cm No obvious anomalies evident. Stomach, kidneys, three-vessel cord, four chamber heart appear normal. IMPRESSION: 1. Viable fetus in the cephalic presentation with an anterior placenta grade 2. 2. The fluid is within normal limits with an amniotic fluid index 10.3 cm, MVP 8.0 cm. 3. There has been good interval growth with the fetus currently 70 second percentile. 4. Limited anatomical scan appears normal. Dictated by: Jamal Preston MD 07/15/2025 07:49 Jamal Preston MD in OV 07/15/2025 07:49
--- OUTSIDE RECORDS SUMMARY | 2025-07-14 10:52 | XMS_ITS | Encounter Summary ---
Author Organization Healthcare Address [address] [place] [address] Care Team Providers Care Assembler Body Name Role Phone Pcp, No Primary Care Provider Unavailabl e Felecia Monreal Unavailable Unavailable Reason for Visit * Reason Comments Community Resources Other PCHW Initial Encount er Encounter Details Date Type Department Care Team ([facility] Contact Info) Description 05/17/2025 Patient Outreach Medical Office Building Obstetrics and Gynecology [address], [address] [place] [address] Felecia Monreal Community Resources; Other (PCHW Initial [...] drink first t paul in the morning (EYE-CONSTRUCTION SITE MANAGER) to steady your nerves or to [...] R - 05/17/2025 11:59 PM EDT Discussion [facility]. The patient answered and shared information regarding hercurrent housing situation. She reported that she has recently submitted a housing application through [facility] and believes she is now on a [...] does not wish to reside outside of [facility]. PCW reviewed documentation from the initial visit, which [...] year is difficult due to this experience. [id number] as a potential resource for this patient. [...] facility, specifically how far it was from [facility] and the challengesposed by her lack of transportation. Due to multiple resource needs being present, [facility] Family Service Coordination program was identified as a possible resource. The patient expressed openness to participating the program, particularly if involvement could expedite her access to stable housing compared to navigating the process independently. PCHW inquired about knowledge of free meals available in [place]. Patient stated they were aware of this information. [employer] [facility] benefits were discussed briefly. Caitlin stated she was familiar with [employer] healthy rewards program, but has been unable to submit -related healthy activities. Plan PCHW will plan to complete the [place] Department for Medicaid Services Notification of and fax to her MCO. Doing so may then allow the patient to healthy activity rewards that are -related. PCHW will plan to send information related to benefits and programs offered by [employer] and other resources via [employer] patient message. PCHW will plan to contact [facility]- Family Services Coordination program and relay information [...] documented as of this encounter Care Teams Assembler Body Relationship Specialty Start Date End [place] [address] PCP - General Family Medicine 02/01/23 Felecia Monreal Community Health Worker 05/17/25 documented as of this encounter
--- OUTSIDE RECORDS SUMMARY | 2025-07-14 10:52 | XMS_ITS | Encounter Summary ---
Author Organization Healthcare Address [address] [place] [address] Care Team Providers Care Sifting Operator Name Role Phone Pcp, No Primary Care Provider Unavailabl e Felecia Monreal Unavailable Unavailable Encounter Details Date Type Department Care Team ([facility] Contact Info) Description 05/18/2025 Results Follow-Up Medical Office Building Obstetrics and Gynecology [address], [address] [place] [address] Emerald Berger, TRANSITIONAL CARE NURSE, DNP [address] [place] [address] Social History Tobacco Use Types [...] drink first t paul in the morning (EYE-PHYSICAL THERAPY AID) to steady your nerves or to get [...] documented as of this encounter Care Teams Sifting Operator Relationship Specialty Start Date End Date Pcp, [place] [address] PCP - General Family Medicine 02/01/23 Felecia Monreal Community Health Worker 05/17/25 documented as of this encounter
--- OUTSIDE RECORDS SUMMARY | 2025-07-14 10:52 | XMS_ITS | Clinical Summary ---
Author Organization Healthcare Address [address] [place] [address] Care Team Providers Care Felt Strip Finisher Name Role Phone Pcp, No Primary Care [...] Office Building Obstetrics and Gynecology [address], [address] [place] [address] Cindy Walden MD 06/02/2025 2:30 PM EDT Routine Medical Office Building Obstetrics and Gynecology [address], [address] [place] [address] Emerald Berger APRN, DNP Insufficient care in third trimester (Primary Dx); Alcoholism (CMS/HCC); Schizophrenia, unspecified type (CMS/HCC); Substance use disorder; Heartburn during in third trimester; Urinary tract infection in mother during third trimester of 06/02/2025 Travel 05/22/2025 Results Follow-Up Medical Office Building Obstetrics and Gynecology [address], [address] [place] [address] Emerald Berger APRN, DNP 05/18/2025 Results Follow-Up Medical Office Building Obstetrics and Gynecology [address], [address] [place] [address] Emerald Berger APRN, DNP 05/17/2025 10:46 AM EDT - 05/17/2025 11:59 PM EDT Hospital Encounter Medical Office Building Obstetrics and Gynecology [address], [address] [place] [address] Encounter for supervision of normal , antepartum, unspecified ; Substance use disorder; AMA (advanced maternal age) multigravida 35+, unspecified trimester; Late care affecting , antepartum Discharge Disposition: Home or Self Care 05/17/2025 9:15 AM EDT Initial Medical Office Building Obstetrics and Gynecology [address], [address] [place] [address] Emerald Berger APRN, DNP GA: [id number] 05/17/2025 Patient Outreach Medical Office Building Obstetrics and Gynecology [address], [address] [place] [address] [employer] Resources; Other (PCHW Initial Encounter) 05/17/2025 Patient Outreach Medical Office Building Obstetrics and Gynecology [address], [address] [place] [address] [employer] [facility]; Other ( Community Health Work Program Enrollment) 05/17/2025 Travel 04/21/2025 Telephone Medical Office Building Obstetrics and Gynecology [address], [address] [place] [address] Emerald Berger APRN, MIRA from Last 3 Months Family History Medical [...] drink first t paul in the morning (EYE-EXERCISER HORSE) to steady your nerves or to get [...] 2012 [facility]-Cervical Cancer Screening 2015 [facility]-HPV/Cotest 2015 [id number] Vaccine ( - 2024- season) 2025 [facility]-Influenza Vaccine (#1) [...] Detected Not Detected 05/18/2025 4:20 PM EDT [facility] Urine Urine specimen / Unknown Non-blood Collection / Unknown 05/17/2025 12:14 PM EDT 05/17/2025 12:14 PM EDT Narrative [facility] - 05/18/2025 4:20 PM EDT This test is performed by the [employer] ([employer]) instrument for Real Time PCR C. trachomatis and N. gonorrhea. This test is FDA approved for use with endocervical, vaginal, and urine specimens. This test is used for clinical purposes. It should not be regarded as invesigational or for research. [facility] is certified under the Clinical Laboratory Improvement Amendments of 1988 (CLIA-88) as qualified to perform high complexity clinical laboratory testing. Emerald Berger APRN, MIRA LAB MICROBIOLOGY - GE NERAL ORDERABLES Final Result Performing Organization Address [facility] de Phone Number [facility] [address] [place] [address] * Neisseria gonorrhea DNA by PCR (05/17/2025 12:14 PM EDT) Neisseria gonorrhea DNA PCR Result Not Detected Not Detected. 05/18/2025 4:20 PM EDT [facility] Urine Urine specimen / Unknown Non-blood Collection / Unknown 05/17/2025 12:14 PM EDT 05/17/2025 12:14 PM EDT Narrative [facility] - 05/18/2025 4:20 PM EDT This test is performed by the [employer] ([employer]) instrument for Real Time PCR C. trachomatis and N. gonorrhea. This test is FDA approved for use with endocervical, vaginal, and urine specimens. This test is used for clinical purposes. It should not be regarded as invesigational or for research. [facility] is certified under the Clinical Laboratory Improvement Amendments of 1988 (CLIA-88) as qualified to perform high complexity clinical laboratory testing. mEerald Berger APRN, DNP LAB MICROBIOLOGY - GE NERAL ORDERABLES Final Result Performing Organization Address [facility] de Phone Number [facility] [address] [place] [address] * (ABNORMAL) Urine Culture (05/17/2025 12:14 PM EDT) Culture >=100,000 CFU/mL - Biotype 1 Escherichia coli ESBL(AA) MINDY 05/21/2025 12:32 PM EDT [facility] Comment: This isolate has been identified using the FDA Approved [employer] [place] System Edited result: Previously reported as Gram Negative Santy on 05/18/2025 at 1710 EDT. Edited result: Previously reported as Escherichia coli on 05/20/2025 at 1415 EDT. Culture >=100,000 CFU/mL - Biotype 2 Escherichia coli ESBL(AA) MINDY 05/21/2025 12:32 PM EDT [facility] Comment: This isolate has been identified using the FDA Approved [employer] [place] System The organism value for this [...] 1/19 ug/ml: Susceptible us Emerald Berger APRN, DNP LAB MICROBIOLOGY - [facility] ORDERABLES Final Result [facility] [address] [place] [id number] * OB US Detail Anatomy (05/17/2025 12:08 PM EDT) Anatomical Region Laterality Modality Body Ultrasound 05/17/2025 11:3 5 AM EDT Impressions 05/17/2025 1:45 PM EDT The OB Ultrasound you requested has been resulted. Please navigate to the Imaging tab in [employer] for review. This message has been generated by the interface. Narrative Procedure Note Emily Muniz MD - 05/17/2025 IMPRESSION: The OB Ultrasound you requested has been resulted. Please navigate to theImaging tab in [employer] for review. This message has been generated by theinterface. us Emerald Berger DIRECTOR ECONOMIC, DNP IMG OB US PROCEDURES Final Result [...] nal Result Performing Organization Address [facility] de Phone Number [facility] [address] [place] [address] * Hepatitis C Antibody - ED (03/19/2024 2:09 AM EDT) Hepatitis C Antibody Negative Negative 03/19/2024 2:50 AM EDT [facility] Blood Venous blood specimen / Unknown Venipuncture / Unknown 03/19/2024 2:09 AM EDT 03/19/2024 2:13 AM EDT [facility] BLOOD ORDERABLES Fi nal Result Performing Organization Address City/[facility] de Phone Number [facility] [address] [place] [address] from Last 3 Months or Most Recently Relevant to Health Maintenance Additional Health Concerns Infection Onset Date Last Indicated ESBL Comment:Urine culture collected 05/17/2025 resulted positive for Escherichia coli ESBL. This patient will require contact precautions indefinitely. Do not resolve this infection. 05/17/2025 05/17/2025 Insurance [facility] MEDICAID Advance Directives * Full Code (Latest Code Status on File) Date Activated Date Inactivated Comments 02/01/2023 5:11 PM 02/03/2023 2:15 PM Question Answer Comments Patient has decision-making capacity? Yes Care Teams Felt Strip Finisher Relationship Specialty Start Date End Date Pcp, No [address] [place] [address] PCP - General Family Medicine 02/01/23 Felecia Monreal Community Health Worker 05/17/25
--- OUTSIDE RECORDS SUMMARY | 2025-07-14 10:52 | XMS_ITS | Encounter Summary ---
Author Organization Healthcare Address [address] [place] [address] Care Team Providers Care Adoption Worker Name Role Phone Pcp, No Primary Care Provider Unavailabl e Felecia Monreal Unavailable Unavailable Reason for Visit * Reason Comments Community Resources Other Community Health Work Program Enrollment Encounter Details Date Type Department Care Team ([facility] Contact Info) Description 05/17/2025 Patient Outreach Medical Office Building Obstetrics and Gynecology [address], [address] [place] [address] Felecia Monreal Community Resources; Other ( Community [...] drink first t paul in the morning (EYE-SENIOR RD ENGINEER) to steady your nerves or to get [...] documented as of this encounter Care Teams Adoption Worker Relationship Specialty Start Date End Date Pcp, [place] [address] PCP - General Family Medicine 02/01/23 Felecia Monreal [facility] Health Worker 05/17/25 documented as of this encounter
--- OUTSIDE RECORDS SUMMARY | 2025-07-14 10:52 | XMS_ITS | Encounter Summary ---
Author Organization Healthcare Address [address] [place] [address] Care Team Providers Care Strap Machine Operator Automatic Name Role Phone Pcp, No Primary Care Provider Unavailabl e Felecia Monreal Unavailable Unavailable Encounter Details Date Type Department Care Team ([facility] Contact Info) Description 07/06/2025 Telephone Medical Office Building Obstetrics and Gynecology [address], [address] [place] [address] Cindy Walden MD [address] [place] [address] Social History Tobacco Use Types [...] drink first t paul in the morning (EYE-ROTARY PLANER SET UP OPERATOR) to steady your nerves or to [...] morning apt. Please call. Best contact number: [phone] (mobile) Optimal time of day to reach caller: ANYTIME Additional comments/information from caller: None Note: Please do not reply to this message. Follow-up communication and further actions as a result of this message need to be communicated with the patient directly, if the patient is not active onMyChart. If the patient is active on MyChart, they will receive notification of the communication/outcome via [employer]. documented in this encounter Plan of Treatment [...] documented as of this encounter Care Teams Strap Machine Operator Automatic Relationship Specialty Start Date End Date Pcp, [place] [address] PCP - General Family Medicine 02/01/23 Felecia Monreal [facility] Health Worker 05/17/25 documented as of this encounter
--- OUTSIDE RECORDS SUMMARY | 2025-07-14 10:52 | XMS_ITS | Encounter Summary ---
Author Organization Healthcare Address [address] [place] [address] Care Team Providers Care Roving Department End Finder Name Role Phone Pcp, No Primary Care [...] drink first t paul in the morning (EYE-FILTER PRESS TENDER HEAD) to steady your nerves or to get [...] documented as of this encounter Care Teams Roving Department End Finder Relationship Specialty Start Date End Date Pcp, [place] [address] PCP - General Family Medicine 02/01/23 Felecia Monreal [facility] Health Worker 05/17/25 documented as of this encounter
--- OUTSIDE RECORDS SUMMARY | 2025-07-14 10:52 | XMS_ITS | Encounter Summary ---
Author Organization Healthcare Address [address] [place] [address] Care Team Providers Care Inspector Rag Sorting Name Role Phone Pcp, No Primary Care [...] drink first t paul in the morning (EYE-RESTRIKE HAMMER OPERATOR) to steady your nerves or to [...] documented as of this encounter Care Teams Inspector Rag Sorting Relationship Specialty Start Date End Date Pcp, [place] [address] PCP - General Family Medicine 02/01/23 Felecia Monreal [facility] Health Worker 05/17/25 documented as of this encounter
--- OUTSIDE RECORDS SUMMARY | 2025-07-14 10:52 | XMS_ITS | Encounter Summary ---
Author Organization Healthcare Address [address] [place] [address] Care Team Providers Care Flatwork Supervisor Name Role Phone Pcp, No Primary Care Provider Unavailabl e Felecia Monreal Unavailable Unavailable Encounter Details Date Type Department Care Team ([facility] Contact Info) Description 05/22/2025 Results Follow-Up Medical Office Building Obstetrics and Gynecology [address], [address] [place] [address] Emerald Berger, MEDIA SERVICES COORDINATOR, DNP [address] [place] [address] Social History Tobacco Use Types [...] drink first t paul in the morning (EYE-TOOL ROOM GEAR MACHINE OPERATOR) to steady your nerves or to [...] documented as of this encounter Care Teams Flatwork Supervisor Relationship Specialty Start Date End Date Pcp, [place] [address] PCP - General Family Medicine 02/01/23 Felecia Monreal [facility] Health Worker 05/17/25 documented as of this encounter
--- OUTSIDE RECORDS SUMMARY | 2025-07-14 10:53 | XMS_ITS ---
Author Organization [facility] Address [address] [place] [address] Care Team Providers Care Quarter Section Ironer Name Role Phone Pcp, No Primary Care Provider Felecia Lloyd Unavailable Unavailable Community Health Worker Status:Active (Active) Start date:05/17/2025 Enrollment date:05/17/2025 Related social drivers of health:Intimate Partner Violence, Food Insecurity, Transportation Needs, Housing Stability, Utilities Overview This episode type is for outpatient Community Health Workers enrolling patients in their program. Case Team Name Relationship Phone Felecia Monreal(Responsible Staff) Community Yissel odilia Health Worker Continued Care and Services Coordination
[2025-07-14 11:45] LABS: Hematocrit 33.9 % (37.0-47.0); Hemoglobin 11.5 g/dL (12.2-16.2); Immature Granulocytes % 2.4 %; Mean Corpuscular HGB Conc 33.9 g/dL (31.8-35.4); Mean Corpuscular Hemoglobin 32.1 pg (27.0-31.2); Mean Corpuscular Volume 94.7 fl (81-99); Nucleated Red Blood Cells % 0 %; Platelet Count 354 K/mm3 (142-424); Red Blood Count 3.58 M/mm3 (4.20-5.40); Red Cell Distribution Width-SD 45.9 fL; White Blood Count 18.9 K/mm3 (4.8-10.8)
[2025-07-14 13:16] LABS: Hepatitis C Ab Qual. W/ RFX NEGATIVE (Negative)
[2025-07-15 06:26] LABS: RPR W/RFX Titers Nonreactive (Nonreactive)
[2025-07-15 07:11] LABS: Hepatitis B Surface Antigen Negative (Negative)
[2025-07-15 08:14] LABS: Rubella Antibodies, IgG 3.25 index (Immune >0.99)
== END 2025-07-14 23:59 | disposition home or self-care (01) ==
LOC: RAD 10:48
PROVIDERS: Visit Provider Nurse Practitioner Obstetrics & Gynecology
DX: Z34.93 Encounter for supervision of normal pregnancy, unspecified, third trimester (principal); Z3A.35 35 weeks gestation of pregnancy
CPT/HCPCS: 36415; 76816; 85025; 86592; 86762; 86787; 86803; 86850; 87340; 87389

== ENCOUNTER 2025-07-19 10:50 | Outpatient (CLI) | payer MEDICAID, SELFPAY ==
--- OUTSIDE RECORDS SUMMARY | 2025-06-02 13:30 | XMS_ITS | Encounter Summary ---
Author Organization Healthcare Address [address] [place] [address] Care Team Providers Care Rib Stiffener And Heel Dipper Name Role Phone Pcp, No Primary Care Provider Unavailabl e Felecia Monreal Unavailable Unavailable Reason for Visit * Reason Comments Routine Visit Encounter Details Date Type Department Care Team (Latest Contact Info) Description 06/02/2025 2:30 PM EDT Routine Medical Office Building Obstetrics and Gynecology [address], [address] [place] [address] Emerald Berger, LIGHT ARMORED VEHICLE OFFICER, [facility] [address] [place] [phone] Insufficient care in third trimester (Primary Dx); Alcoholism (CMS/HCC); Schizophrenia, unspecified type (CMS/HCC); Substance use disorder; Heartburn during in third trimester; Urinary tract infection in mother during third trimester of Social History Tobacco Use Types Packs/Day Years [...] drink first t paul in the morning (EYE-SUPERVISOR PARTICLEBOARD) to steady your nerves or to get [...] Sign Reading Time Taken Comments Blood Pressure 127/77 06/02/2025 3:07 PM EDT Pulse 105 06/02/2025 3:07 PM EDT Temperature - - Respiratory Rate 17 06/02/2025 3:07 PM EDT Oxygen Saturation 98% 06/02/2025 3:07 PM EDT Inhaled Oxygen Concentration - - Weight 88.3 kg (194 lb 10.7 oz) 06/02/2025 3:07 PM EDT Height - - Body Mass Index 25.68 05/17/2025 9:41 AM EDT documented in this encounter Miscellaneous Notes * Patient Instructions - Emerald Berger, HESHAM, DNP - 06/02/2025 2:30 PM EDT Images from the original note were not included. : Your Third Trimester Changes As the baby grows, your body changes, too. You may also see signs that your body is getting ready for labor. Be patient. Within a few more weeks, your baby will be born. How you are changing Your body is preparing for the of your baby. Some of the most common changes are listed below. If you have any questions or concerns, ask your healthcare provider: You???ll gain more weight from fluids, extra blood, and fat deposits. Your breasts will grow as your body gets ready to feed the baby. They may be more tender. You may also notice a slight yellow or white discharge from the nipples. Discharge from your vagina may increase. This is normal. You might see some skin color changes on your forehead, cheeks, or nose. Most of these will go awayafter you deliver. You may have symptoms such as heartburn, trouble sleeping, and some shortness of breath due to the growing fetus. Your belly button may stick out. Near term, you may feel the baby dropping or moving downward toward the pelvis. You may get hemorrhoids from pressure of the growing baby on rectal veins. How your baby is growing Month 7 Your baby can open and close their eyes and weighs around 4 pounds (1.8 kg). The baby's bones are fully formed but soft. The baby's movements are pretty forceful. The hair on your baby's body called lanugo, starts to fall off. The lungs are not fully developed, but practice breathing movements occur. Month 8 Your baby is building up body fat and weighs around 6 pounds (2.7 kg). The protective waxy coating around the baby called vernix, gets thicker. Your baby is now getting bigger and has more fat stores. Due to reduced space in the uterus, the baby's movements may become less forceful. But you will still feel the wiggles and stretches as your little one moves. Month 9 Your baby weighs nearly 7 pounds (3.2 kg) and is about 19 to 21 inches long. The baby's organs are ready to function on their own. In most pregnancies, the baby may turn into a head-down (cephalic) position for as the due date approaches. In other words, any day now... When to call your healthcare provider Seek medical help right away for any of the following: Reduced or absent movements Bleeding or excess watery discharge from the vagina Excessive swelling in your feet, legs, or other areas of your body Severe headache, nausea, rash, bleeding from any site, or yellowing of the eyes or skin Severe belly pain or contractions Fever Adapting to : Third Trimester Although common during , some discomforts may seem worse in the final weeks. Simple lifestyle changes can help. Take care of yourself. And ask your partner to help out with small tasks. Limiting leg problems Ways to combat leg issues: Wear support hose all day. Don't wear snug shoes or clothes that bind, such as tight pants and socks with elastic tops. Sit with your feet and legs raised often. Caring for your breasts Tips to follow include: Wash with plain water. Don't use harsh soaps or rubbing alcohol. They may cause dryness. Wear a nursing bra for extra support. It can also hide any leaks from your nipples. Controlling hemorrhoids Ways to prevent hemorrhoids include: Eat foods that are high in fiber. Also exercise and drink enough fluids. This will reduce constipation and hemorrhoids. Sleep and nap on your side. This limits pressure on the veins of your rectum. Try not to stand or sit for long periods. Controlling back pain As your body changes during , your back must work in new ways. Back pain has many causes. Physical changes in your body can strain your back and its supporting muscles. Also hormones increase during . This can affect how your muscles and joints work together. All of these changes can lead to pain. Pain may be felt in the upper or lower back. Pain is also common in the pelvis. Some womenhave sciatica. This is pain caused by pressure on the sciatic nerve running down the back of the leg. Ice or heat may help. Your provider may advise massage therapy or a chiropractor. Sleep on your left side with a pillow between your knees. Use a brace or support device. Ask your provider for speci fic tips and exercises to help control your back pain. Tips to help you rest Good rest and sleep will help you feel better. Here are some ideas: Ask your partner to massage your shoulders, neck, or back. Limit the errands you do each day. Lie down in the afternoon or after work for a few minutes. Take a warm bath before you go to sleep. Drink warm milk or teas without caffeine. Don't drink coffee, black tea, and cola. Stopping heartburn Don't eat spicy, greasy, fried, or acidic foods. Eat small amounts more often. Eat slowly. Wait 2 hours after eating before lying down. Sleep with your upper body raised 6 inches. Managing mood swings Ways to manage mood swings include: Know that mood changes are normal. Exercise often, but get plenty of rest. Address any concerns and limit stress. Talking to your partner, other women, or your healthcare provider may help. Dealing with urinary frequency Tips to deal with having to urinate often include: Drink plenty of water all day. But if you drink a lot in the evening, you may have to get up more in the night. Limit coffee, black tea, and cola. How daily issues affect your health Many things in your daily life impact your health. This can include transportation, money problems,housing, access to food, and child psychologist. If you can???t get to medical appointments, you may not receive the care you need. When money is tight, it may be difficult to pay for medicines. And living far from a grocery store can make it hard to buy healthy food. If you have concerns in any of these or other areas, talk with your healthcare team. They may know of local resources to assist you. Or they may have a staff person who can help. Reasons to Come to the Hospital or Call Your Doctor During Your Reasons to come to the hospital Contractions every 5 minutes for 1 hour if greater than 37 weeks* Contractions every 10 minutes for 1 hour if less than 37 weeks* * Time contractions from the beginning of one contraction to the beginning of the next contraction. Your water breaks Vaginal bleeding like you???re having a period No movements in 2 hours when fetus is normally active Vomiting for 24 hours Any kind of fall or car accident Any sign your blood pressure may be high or that you may have preeclampsia, such as: a headache that doesn???t go away after taking Tylenol vision problems such as flashes or spots rapid weight gain belly (abdominal pain) on your right side swelling (edema) in your face or hands: this also often happens near the end of normal pregnancies,even without preeclampsia Reasons to call your doctor Symptoms of urinary tract infection (burning with urination) Fever greater than 100.5??F by mouth Flu-like symptoms Abnormal vaginal discharge Phone Numbers [facility] (Triage): [facility] Obstetrics & Gynecology: [facility] Clinic: [facility]: Family Practice: [facility] Obstetrics & Gynecology [place]: [facility] Obstetrics & Gynecology [place]: What Is Group B Strep? Group B strep (streptococcus) is a common type of bacteria. It can grow in the vagina, rectum, or urinary tract. It most often does not cause harm in adults. But in rare cases, a person who has group B strep can infect the baby during . This can cause serious illness in the . But treatment during labor reduces the risk of the baby becoming infected. And if a gets group B strep, the infection can be treated. Facts about group B strep Learning more about group B strep can help you understand how testing and treatment can help. Here are some basic facts about group B strep: It's not a sexually transmitted infection. It's not the same as strep throat. (That is caused by group A strep.) It often has no symptoms. It may cause no problems in adults. Test results can be misleading. They may be negative one week and positive the next week. Group B strep can be spread to the baby during vaginal delivery. It can't be passed during (surgical) . A person with group B strep rarely infects the . (Infection happens only about 1% to 2% of the time.) When a person is treated during labor and delivery, the baby almost never becomes infected. Certain factors during increase the risk of a baby becoming infected. Possible effects on your baby Group B strep can infect the blood. It can also cause inflammation of the baby???s lungs, brain, orspinal cord. Long-term effects can include blindness, deafness, mental retardation, or cerebral palsy. And in rare cases, infection causes . Infection is most often found soon after the baby is born. How your baby may become infected Group B strep often lives in the vagina or rectum. If the amniotic sac breaks early, bacteria from the vagina can travel to the uterus, reaching the baby. Or, while passing through the canal, the baby can come in contact with the bacteria. In rare cases, group B strep can be passed to the baby after delivery. This is called late-onset group B strep. The source of this type of infection is not well-understood. But some experts believe that it happens if the baby is exposed to group B strepin the home, from the parents or siblings, or in the community. What increases the risk? Certain things increase the chance that a baby will be infected. They include: Breaking or leaking of the amniotic sac before 37 weeks of Labor before 37 weeks of Breaking of the amniotic sac more than 18 hours before labor starts Fever during labor A urinary tract infection with group B strep at any point in the Having a previous baby born with a group B strep infection Treating Group B Strep Testing and treatment of group B strep in your can help prevent your baby from becoming infected during . If your baby has complications due to group B strep, they may need special treatments. Early treatment gives the best chance of a good outcome. Testing Testing for the bacteria is painless. This is most often during weeks 36 through 37 of . For the test, your healthcare provider uses cotton swabs to take samples from your vagina and anus. These samples are sent to the lab. Your provider will get your test results about 2 days later. Results show if you have group B strep. To test for Group B strep, your healthcare provider takes swabs from your vagina and anus during a pelvic exam. Treatment If you have group B strep, you'll be treated with IV antibiotics. These are given through a flexible tube (catheter) in a vein in your arm or hand. You may be treated if you have not been tested but you have risk factors. The treatment is not done until you start labor. This lets the medicine protect your baby during and after . Group B strep can come back after treatment. So IV antibiotics are started during labor and also given during delivery. This should not affect the course of labor. If group B strep is diagnosed in your urine, you'll be given medicine at that time to protect you from infections of the urinary tract. After the , your baby will be observed in the hospital for 24 to 48 hours. This is to make sure that they have not been infected. Your baby???s blood may also be tested. In newborns, most cases of group B strep infection are found before the mother and baby go home. But in very rare cases, a baby may get a group B strep infection after going home. This is called a late-onset infection. Call your baby???s healthcare provider right away if your baby: Has a fever Is refusing to feed Seems stressed or is fussy and can???t be calmed Has breathing trouble Has a very fast, very low, or irregular heart rate Beginning to Breastfeed: Gkxn-km-Zfac What is wefz-vw-xtvn? After , your nurse will clean and dry your baby. Your baby will then be placed on your chest lbon-jf-mxos right away. Your baby???s shoulders should be against your chest, knees flexed, and headturned to the side. Your baby's head should be tilted slightly back in what is called the ???sniffing position.?? Your nurse will diaper your baby and cover you both with warm blankets. This is the best way to keep babies warm after being born. Babies are very alert right after . Your baby may actually ???crawl?? into position to breastfeed for the first time. Your baby will stay tbry-cq-jwbf with you for as long as you like after . If you get too sleepy, let your nurse know. Only you or your partner can do lzqe-qf-cwtx with your baby these first few hours. Visitors may come in, but you must not pass your baby around during this time. This could cause your baby to get cold and then sick. Qdfz-ek-xzgd is a great way to remind your baby how to breast feed. It is also a way to comfort a crying baby, even after you go home. But if you get sleepy, put your baby back in the crib or have your partner or family member take her or him. Falling asleep with your baby can be dangerous. Your baby might get into a position where she or he cannot breathe. Nursing your baby will help reduce your bleeding after . It also lowers your risk of depression. Being wciu-xf-qzdu with your baby can help reduce your pain after delivery. How will I know if my baby is hungry? Don???t wait until your baby cries to nurse. Newborns should be nursed as soon as they show a hunger sign. Here are some common hunger signs: Being more alert or active Rooting reflex - nuzzling against your breast Lips smacking or mouth opening and closing Sucking on hand or fingers Crying How often should I feed my baby? Your baby???s stomach is the size of a small marble at . By Day 3, it is the size of a shootermarble. By Day 10, the stomach grows to the size of a ping- pong ball. This is why babies eat so often. They can only hold a little bit of food until their stomach grows. You should nurse as often and as long as your baby wants. Most babies nurse 8-12 times in 24 hours.This means they should eat at least every 3 hours. Sometimes babies cluster feed every hour as theylearn to breastfeed, or sometimes you may need to wake your baby for feedings. Babies will eat moreoften during a growth spurt, and you may think you aren???t making enough milk. But don???t worry. Y our baby will not need formula or supplements. Your body will get your baby???s message from the extra feedings and make more milk to keep your baby growing. Most newborns need a lot of sleep. If your baby fusses when feeding, don???t worry. Some babies areeasy to distract. Here are some tips to calm your baby for nursing: Choose a quiet place for feeding. Placing your baby in the hbqr-cn-hlwq position on your chest. This can help your baby calm down andremember how to breastfeed. It may also help if you breastfeed in the same place in your home each time. How much attention should I give my baby? Infants can???t be spoiled. Your baby will let you know when comfort, food, or holding is needed. When you respond to your baby???s needs, you build trust. This is a time to shower your baby with love and attention. What is Rooming In? While you are in the hospital, we will try to keep your baby with you in your room 24 hours a day. We call this Rooming In. This will help you learn what your baby needs. Your nurse will help you learn to care for your baby. Consultants are specially trained nurses. They will help you with positions. They will also help you get your baby to latch on correctly. [facility] can help with any breast feeding problems after you go home. Choosing a Doctor for Baby - Video Choosing a Doctor for Baby Please use the QR Code to watch the video * Progress Notes - Emerald Berger APRN, DNP - 06/02/2025 2:30 PM EDT Note Subjective Ms. Goldberg is a @ 29w5d here for a visit. She has had some recent vomiting and diarrhea that she thinks is related to a GI illness. This is improving but still having acid reflux and nausea. Denies VB, LOF, cramping, ctx. +FM. Denies headaches, visual changes, swelling. Currently living with a roommate but waiting on more permanent housing. History of Present Illness Objective Visit Vitals BP 127/77 Pulse 105 Resp 17 Heart Rate: 140 Fundal Height (cm): 28 cm Physical Exam Assessment/Plan Assessment & Plan Assessment & Plan Alcoholism (CMS/HCC) -Not currently using, last use 11 weeks ago Schizophrenia, unspecified type (CMS/HCC) -Not currently on medication -Psych referral placed at initial visit Substance use disorder -Not currently using any substance other than marijuana. Verbally agreed to UDS. -Discussed Path[facility], but patient declines referral Heartburn during in third trimester Orders: famotidine (Pepcid) 20 MG tablet; Take 1 tablet by mouth 2 times a day. Insufficient care in third trimester RTC in 2 weeks [address]iscussed location of OB ED and precautions OB labs collected today Immunizations: Flu: declined Tdap: discussed, considering for next visit OB ultrasounds: 05/17/25 at 27 3/7: IVANA 08/13/25, vtx, ant plac, 3 VC, AF WNL, AC 35%, EFW 49%, limited face and heart views, follow up in 4 weeks Growth 06/23/25 Discussed delivery planning today, likely desires a 39 week eIOL. Urinary tract infection in mother during third trimester of Treated with nitrofurantoin at initial visit Completed full course of medication Asymptomatic today documented in this encounter Plan of Treatment Not on file documented as of this encounter Visit Diagnoses Diagnosis Insufficient care in third trimester- Primary Alcoholism (CMS/HCC) Other and unspecified alcohol dependence, unspecified drinking behavior Schizophrenia, unspecified type (CMS/HCC) Substance use disorder Heartburn during in third trimester Urinary tract infection in mother during third trimester of documented in this encounter Additional Health Concerns Infection Onset Date Last Indicated Resolved Time ESBL Comment:Urine culture collected 05/17/2025 resulted positive for Escherichia coli ESBL. This patient will require contact precautions indefinitely. Do not resolve this infection. 05/17/2025 05/17/2025 Assessment Noted Time A fall risk assessment has been complete d for the patient 05/17/2025 9:55 AM EDT A Body Mass Index follow-up plan has been documented for the patient 06/02/2025 3:55 PM EDT documented as of this encounter Care Teams Rib Stiffener And Heel Dipper Relationship Specialty Start Date End Date Pcp, [place] [address] PCP - General Family Medicine 02/01/23 Felecia Monreal [facility] Worker 05/17/25 documented as of this encounter
--- OUTSIDE RECORDS SUMMARY | 2025-07-24 11:41 | XMS_ITS | Encounter Summary ---
Author Organization Healthcare Address [address] [place] [address] Care Team Providers Care Melter Supervisor Electric Arc Furnace Name Role Phone Pcp, No Primary Care Provider Unavailabl e Felecia Monreal Unavailable Unavailable Encounter Details Date Type Department Care Team ([facility] Contact Info) Description 05/22/2025 Results Follow-Up Medical Office Building Obstetrics and Gynecology [address], [address] [place] [address] Emerald Berger, CUTTING TOOL SHARPENER, DNP [address] [place] [address] Social History Tobacco Use Types [...] drink first t paul in the morning (EYE-STRAP MACHINE OPERATOR) to steady your nerves or [...] documented as of this encounter Care Teams Melter Supervisor Electric Arc Furnace Relationship Specialty Start Date End Date Pcp, [place] [address] PCP - General Family Medicine 02/01/23 Felecia Monreal [facility] Health Worker 05/17/25 documented as of this encounter
--- OUTSIDE RECORDS SUMMARY | 2025-07-24 11:41 | XMS_ITS | Clinical Summary ---
Author Organization Healthcare Address [address] [place] [address] Care Team Providers Care Licensed Loan Officer Name Role Phone Pcp, No Primary Care [...] Office Building Obstetrics and Gynecology [address], [address] [place] [address] Cindy Walden MD 06/02/2025 2:30 PM EDT Routine Medical Office Building Obstetrics and Gynecology [address], [address] [place] [address] Emerald Berger APRN, DNP Insufficient care in third trimester (Primary Dx); Alcoholism (CMS/HCC); Schizophrenia, unspecified type (CMS/HCC); Substance use disorder; Heartburn during in third trimester; Urinary tract infection in mother during third trimester of 06/02/2025 Travel 05/22/2025 Results Follow-Up Medical Office Building Obstetrics and Gynecology [address], [address] [place] [address] Emerald Berger APRN, DNP 05/18/2025 Results Follow-Up Medical Office Building Obstetrics and Gynecology [address], [address] [place] [address] Emerald Berger APRN, DNP 05/17/2025 10:46 AM EDT - 05/17/2025 11:59 PM EDT Hospital Encounter Medical Office Building Obstetrics and Gynecology [address], [address] [place] [address] Encounter for supervision of normal , antepartum, unspecified ; Substance use disorder; AMA (advanced maternal age) multigravida 35+, unspecified trimester; Late care affecting , antepartum Discharge Disposition: Home or Self Care 05/17/2025 9:15 AM EDT Initial Medical Office Building Obstetrics and Gynecology [address], [address] [place] [address] Emerald Berger APRN, DNP GA: [id number] 05/17/2025 Patient Outreach Medical Office Building Obstetrics and Gynecology [address], [address] [place] [address] [email or web address]; Other ([facility] Initial Encounter) 05/17/2025 Patient Outreach Medical Office Building Obstetrics and Gynecology [address], [address] [place] [address] [employer]; Other ( Community Health Work Program Enrollment) 05/17/2025 Travel from Last 3 Months Family History Medical [...] drink first t paul in the morning (EYE-CYTOTECHNOLOGIST/HISTOTECHNOLOGIST) to steady your nerves or to get [...] Date Last Done Comments [facility]-Depression Screening 1985 [facility]-/Child/Adol SDOH Screenings 1985 [facility]-Varicella Vaccines (1 of [...] 2012 [facility]-Cervical Cancer Screening 2015 [facility]-HPV/Cotest 2015 [id number] Vaccine (1 - 2024- season) 2025 [facility]-Influenza [...] Detected Not Detected 05/18/2025 4:20 PM EDT [facility] Urine Urine specimen / Unknown Non-blood Collection / Unknown 05/17/2025 12:14 PM EDT 05/17/2025 12:14 PM EDT Narrative [facility] - 05/18/2025 4:20 PM EDT This test is performed by the Yedda000 instrument for Real Time PCR C. trachomatis and N. gonorrhea. This test is FDA approved for use with endocervical, vaginal, and urine specimens. This test is used for clinical purposes. It should not be regarded as invesigational or for research. The [facility] Clinical Microbiology Laboratory is certified under the Clinical Laboratory Improvement Amendments of 1988 (CLIA-88) as qualified to perform high complexity clinical laboratory testing. us Emerald Berger APRN, DNP LAB MICROBIOLOGY - GE NERAL ORDERABLES Final Result Performing Organization Address [facility]/ZIP Co de Phone Number [facility] [address] [place] [address] * Neisseria gonorrhea DNA by PCR (05/17/2025 12:14 PM EDT) Pathologist [facility] Neisseria gonorrhea DNA PCR Result Not Detected Not Detected. 05/18/2025 4:20 PM EDT [facility] Urine Urine specimen / Unknown Non-blood Collection / Unknown 05/17/2025 12:14 PM EDT 05/17/2025 12:14 PM EDT Narrative [facility] - 05/18/2025 4:20 PM EDT This test is performed by the [employer] instrument for Real Time PCR C. trachomatis and N. gonorrhea. This test is FDA approved for use with endocervical, vaginal, and urine specimens. This test is used for clinical purposes. It should not be regarded as invesigational or for research. The [facility] Clinical Microbiology Laboratory is certified under the Clinical Laboratory Improvement Amendments of 1988 (CLIA-88) as qualified to perform high complexity clinical laboratory testing. Emerald Berger APRN, DNP LAB MICROBIOLOGY - [employer] NERAL ORDERABLES Final Result Performing Organization Address [facility] de Phone Number [facility] [address] [place] [address] * (ABNORMAL) Urine Culture (05/17/2025 12:14 PM EDT) Pathologist [facility] Culture >=100,000 CFU/mL - Biotype 1 Escherichia coli ESBL(AA) MINDY 05/21/2025 12:32 PM EDT [facility] Comment: This isolate has been identified using the FDA Approved [employer] [place] System Edited result: Previously reported as Gram Negative Santy on 05/18/2025 at 1710 EDT. Edited result: Previously reported as Escherichia coli on 05/20/2025 at 1415 EDT. Culture >=100,000 CFU/mL - Biotype 2 Escherichia coli ESBL(AA) MINDY 05/21/2025 12:32 PM EDT [facility] Comment: This isolate has been identified using the FDA Approved [employer] [place] System The organism value for this [...] Emerald Berger APRN, DNP LAB MICROBIOLOGY - [facility] ORDERABLES Final Result Performing Organization Address City/State/[facility] [place] [address] * OB US Detail Anatomy (05/17/2025 12:08 PM EDT) Anatomical Region Laterality Modality Body Ultrasound 05/17/2025 11:3 5 AM EDT Impressions 05/17/2025 1:45 PM EDT The OB Ultrasound you requested has been resulted. Please navigate to the Imaging tab in [employer] for review. This message has been generated by the interface. Narrative Procedure Note Emily Muniz MD - 05/17/2025 IMPRESSION: The OB Ultrasound you requested has been resulted. Please navigate to theImaging tab in [employer] for review. This message has been generated by [email or web address]. us Emerald Berger APRN, MIRA IMG OB US PROCEDURES Final Result * [...] ORDERABLES Fi nal Result Performing Organization Address [facility] de Phone Number [facility] [address] [place] [address] * Hepatitis C Antibody - ED (03/19/2024 2:09 AM EDT) Hepatitis C Antibody Negative Negative 03/19/2024 2:50 AM EDT [facility] Blood Venous blood specimen / Unknown Venipuncture / Unknown 03/19/2024 2:09 AM EDT 03/19/2024 2:13 AM EDT [facility] LAB BLOOD ORDERABLES Fi nal Result Performing Organization Address [facility] Co de Phone Number [facility] [address] [place] [address] from Last 3 Months or Most Recently Relevant to Health Maintenance Additional Health Concerns Infection Onset Date Last Indicated ESBL Comment:Urine culture collected 05/17/2025 resulted positive for Escherichia coli ESBL. This patient will require contact precautions indefinitely. Do not resolve this infection. 05/17/2025 05/17/[address] [facility] MEDICA[employer] Advance Directives * Full Code (Latest Code Status on File) Date Activated Date Inactivated Comments 02/01/2023 5:11 PM 02/03/2023 2:15 PM Question Answer Comments Patient has decision-making capacity? Yes Care Teams Licensed Loan Officer Relationship Specialty Start Date End Date Pcp, No [address] [place] [address] PCP - General Family Medicine 02/01/23 Felecia Monreal Community Health Worker 05/17/25
--- OUTSIDE RECORDS SUMMARY | 2025-07-24 11:41 | XMS_ITS ---
Author Organization [facility] Address [address] [place] [address] Care Team Providers Care Manuscripts Curator Name Role Phone Pcp, No Primary Care Provider Felecia Lloyd Unavailable Unavailable Community Health Worker Status:Active (Active) Start date:05/17/2025 Enrollment date:05/17/2025 Related social drivers of health:Intimate Partner Violence, Food Insecurity, Transportation Needs, Housing Stability, Utilities Overview This episode type is for outpatient Community Health Workers enrolling patients in their program. Case Team Name Relationship Phone Felecia Monreal(Responsible Staff) Community Yissel Health Worker Continued Care and Services Coordination
--- OUTSIDE RECORDS SUMMARY | 2025-07-24 11:41 | XMS_ITS | Encounter Summary ---
Author Organization Healthcare Address [address] [place] [address] Care Team Providers Care Global Expansion Sales Director Name Role Phone Pcp, No Primary Care Provider Unavailabl e Felecia Monreal Unavailable Unavailable Encounter Details Date Type Department Care Team ([facility] Contact Info) Description 05/18/2025 Results Follow-Up Medical Office Building Obstetrics and Gynecology [address], [address] [place] [address] Emerald Berger, PRACTICE REPRESENTATIVE, DNP [address] [place] [address] Social History Tobacco Use Types [...] drink first t paul in the morning (EYE-BUTADIENE CONVERTER UTILITY OPERATOR) to steady your nerves or to [...] documented as of this encounter Care Teams Global Expansion Sales Director Relationship Specialty Start Date End Date Pcp, [place] [address] PCP - General Family Medicine 02/01/23 Felecia Monreal Community Health Worker 05/17/25 documented as of this encounter
--- OUTSIDE RECORDS SUMMARY | 2025-07-24 11:41 | XMS_ITS | Encounter Summary ---
Author Organization Healthcare Address [address] [place] [address] Care Team Providers Care Sap Portal Developer Name Role Phone Pcp, No Primary Care [...] drink first t paul in the morning (EYE-SPLICER OPERATOR) to steady your nerves or to [...] documented as of this encounter Care Teams Sap Portal Developer Relationship Specialty Start Date End Date Pcp, [place] [address] PCP - General Family Medicine 02/01/23 Felecia Monreal [facility] Health Worker 05/17/25 documented as of this encounter
--- OUTSIDE RECORDS SUMMARY | 2025-07-24 11:41 | XMS_ITS | Encounter Summary ---
Author Organization Healthcare Address [address] [place] [address] Care Team Providers Care Leasing Machine Tender Name Role Phone Pcp, No Primary Care Provider Unavailabl e Felecia Monreal Unavailable Unavailable Encounter Details Date Type Department Care Team ([facility] Contact Info) Description 07/06/2025 Telephone Medical Office Building Obstetrics and Gynecology [address] [place] [address] Cindy Walden MD [address] [place] [address] Social History Tobacco Use Types [...] drink first t paul in the morning (EYE-AGENT PRODUCER) to steady your nerves or to get [...] morning apt. Please call. Best contact number: [phone] (mobile) Optimal time of day to reach caller: ANYTIME Additional comments/information from caller: None Note: Please do not reply to this message. Follow-up communication and further actions as a result of this message need to be communicated with the patient directly, if the patient is not active onMyChart. If the patient is active on MyChart, they will receive notification of the communication/outcome via SHERPA assistant. documented in this encounter Plan of Treatment [...] documented as of this encounter Care Teams Leasing Machine Tender Relationship Specialty Start Date End Date Pcp, [place] [address] PCP - General Family Medicine 02/01/23 Felecia Monreal [facility] Health Worker 05/17/25 documented as of this encounter
== END 2025-07-19 23:59 ==
LOC: LAB.DROPOF 07-24 10:51
PROVIDERS: Visit Provider Nurse Practitioner Obstetrics & Gynecology
DX: Z34.93 Encounter for supervision of normal pregnancy, unspecified, third trimester (principal); Z3A.00 Weeks of gestation of pregnancy not specified
CPT/HCPCS: 86403

== ENCOUNTER 2025-08-08 23:26 | Outpatient (CLI) | payer MEDICAID, SELFPAY ==
[2025-08-08 23:29] VITALS: BMI 28.8
--- OUTSIDE RECORDS SUMMARY | 2025-08-08 23:29 | XMS_ITS | Clinical Summary ---
Author Organization Healthcare Address [address] [place] [address] Care Team Providers Care Securities Lending Trader Name Role Phone Pcp, No Primary Care [...] Office Building Obstetrics and Gynecology [address], [address] [place] [address] Cindy Walden MD 06/02/2025 2:30 PM EDT Routine Medical Office Building Obstetrics and Gynecology [address], [address] [place] [address] Emerald Berger APRN, DNP Insufficient care in third trimester (Primary Dx); Alcoholism (CMS/HCC); Schizophrenia, unspecified type (CMS/HCC); Substance use disorder; Heartburn during in third trimester; Urinary tract infection in mother during third trimester of 06/02/2025 Travel 05/22/2025 Results Follow-Up Medical Office Building Obstetrics and Gynecology [address], [address] [place] [address] Emerald Berger APRN, DNP 05/18/2025 Results Follow-Up Medical Office Building Obstetrics and Gynecology [address], [address] [place] [address] Emerald Berger APRN, DNP 05/17/2025 10:46 AM EDT - 05/17/2025 11:59 PM EDT Hospital Encounter Medical Office Building Obstetrics and Gynecology [address], [address] [place] [address] Encounter for supervision of normal , antepartum, unspecified ; Substance use disorder; AMA (advanced maternal age) multigravida 35+, unspecified trimester; Late care affecting , antepartum Discharge Disposition: Home or Self Care 05/17/2025 9:15 AM EDT Initial Medical Office Building Obstetrics and Gynecology [address], [address] [place] [address] Emerald Berger APRN, DNP GA: 27w3d 05/17/2025 Patient Outreach Medical Office Building Obstetrics and Gynecology [address], [address] [place] [address] [employer]; Other ([facility] Initial Encounter) 05/17/2025 Patient Outreach Medical Office Building Obstetrics and Gynecology [address], [address] [place] [address] [employer]; Other ( Community Health Work Program Enrollment) [...] drink first t paul in the morning (EYE-SPEECH COMMUNICATION INSTRUCTOR) to steady your nerves or to get [...] - Tdap) 07/31/2004 2004 [facility]-Pap Smear 2006 [facility]-Cervical Cancer Screening 2015 [facility]-HPV/Cotest 2015 [id number]-[id number]-16 Vaccine ( - season) 2025 [facility]-Influenza Vaccine (#1) 2025 [facility]-Zoster Vaccines (1 of 2) 2035 [facility]-Hepatitis B Vaccines Completed 998, 06/08/1997, 05/08/1997 [facility]-Hepatitis A Vaccines Aged Out 07/07/2018 No longer eligible based on patient's age to complete this topic [facility]-HIV Screening Completed 03/19/2024 [facility]-Hepatitis C Screening Completed 2023, 02/02/2023, 01/01/2019 [facility]Y-Obesity Intervention Completed 025, 05/17/2025 HPV Vaccines (No Doses Required) Completed [facility]Y-HIB Vaccines Aged Out No longer e ligible based on patient's age to complete this topic UKY-IPV Vaccines Aged Out No longer e ligible based on patient's age to complete this topic [facility]Y-RSV Vaccine: 60+ Years o r (No Doses Required) Completed [facility]-Rotavirus Vaccines Aged Out No lo nger [...] Detected Not Detected 05/18/2025 4:20 PM EDT [facility] Urine Urine specimen / Unknown Non-blood Collection / Unknown 05/17/2025 12:14 PM EDT 05/17/2025 12:14 PM EDT Narrative [facility] - 05/18/2025 4:20 PM EDT This test is performed by the AppSocially m2000 instrument for Real Time PCR C. trachomatis and N. gonorrhea. This test is FDA approved for use with endocervical, vaginal, and urine specimens. This test is used for clinical purposes. It should not be regarded as invesigational or for research. The [facility] Clinical Microbiology Laboratory is certified under the Clinical Laboratory Improvement Amendments of 1988 (CLIA-88) as qualified to perform high complexity clinical laboratory testing. us Emerald Berger APRN, DNP LAB MICROBIOLOGY - NERAL ORDERABLES Final Result Performing Organization Address City/State/[facility] Co de Phone Number [facility] [address] [place] [address] * Neisseria gonorrhea DNA by PCR (05/17/2025 12:14 PM EDT) Neisseria gonorrhea DNA PCR Result Not Detected Not Detected. 05/18/2025 4:20 PM EDT [facility] Urine Urine specimen / Unknown Non-blood Collection / Unknown 05/17/2025 12:14 PM EDT 05/17/2025 12:14 PM EDT Narrative [facility] - 05/18/2025 4:20 PM EDT This test is performed by the DreamDry instrument for Real Time PCR C. trachomatis and N. gonorrhea. This test is FDA approved for use with endocervical, vaginal, and urine specimens. This test is used for clinical purposes. It should not be regarded as invesigational or for research. The [facility] Clinical Microbiology Laboratory is certified under the Clinical Laboratory Improvement Amendments of 1988 (CLIA-88) as qualified to perform high complexity clinical laboratory testing. Emerald Berger APRN, [facility] LAB MICROBIOLOGY - NERWV ORDERABLES Final Result Performing Organization Address [facility] Co de Phone Number [facility] [address] [place] [address] * (ABNORMAL) Urine Culture (05/17/2025 12:14 PM EDT) Pathologist [facility] Culture >=100,000 CFU/mL - Biotype 1 Escherichia coli ESBL(AA) MINDY 05/21/2025 12:32 PM EDT [facility] Comment: This isolate has been identified using the FDA Approved Double the Donationyper CA System Edited result: Previously reported as Gram Negative Santy on 05/18/2025 at 1710 EDT. Edited result: Previously reported as Escherichia coli on 05/20/2025 at 1415 EDT. Culture >=100,000 CFU/mL - Biotype 2 Escherichia coli ESBL(AA) MINDY 05/21/2025 12:32 PM EDT [facility] Comment: This isolate has been identified using the FDA Approved MALDI Crest Opticsyper CA System The organism value for this [...] Emerald Berger APRN, DNP LAB MICROBIOLOGY - [employer] [facility] ORDERABLES Final Result Performing Organization Address City/State/[facility] Co de Phone Number [facility] [address] [place] [address] * OB US Detail Anatomy (05/17/2025 12:08 PM EDT) Anatomical Region Laterality Modality Body Ultrasound 05/17/2025 11:3 5 AM EDT Impressions 05/17/2025 1:45 PM EDT The OB Ultrasound you requested has been resulted. Please navigate to the Imaging tab in Roobiq for review. This message has been generated by the interface. Narrative Procedure Note Emily Muniz MD - 05/17/2025 IMPRESSION: The OB Ultrasound you requested has been resulted. Please navigate to theImaging tab in Roobiq for review. This message has been generated by [employer]. us Emerald Berger BOULEVARD GLASSWARE REPLACER, DNP IMG OB US PROCEDURES Final Result [...] ORDERABLES Fi nal Result Performing Organization Address [facility] de Phone Number HEALTHCARE LAB [address] [place] [address] * Hepatitis C Antibody - ED (03/19/2024 2:09 AM EDT) Hepatitis C Antibody Negative Negative 03/19/2024 2:50 AM EDT [facility] Blood Venous blood specimen / Unknown Venipuncture / Unknown 03/19/2024 2:09 AM EDT 03/19/2024 2:13 AM EDT [facility] LAB BLOOD ORDERABLES Fi nal Result Performing Organization Address City/[facility] [address]/[facility] de Phone Number HEALTHCARE LAB [address] [place] [address] from Last 3 Months or Most Recently Relevant to Health Maintenance Additional Health Concerns Infection Onset Date Last Indicated ESBL Comment:Urine culture collected 05/17/2025 resulted positive for Escherichia coli ESBL. This patient will require contact precautions indefinitely. Do not resolve this infection. 05/17/2025 05/17/2025 Insurance [employer] Advance Directives * Full Code (Latest Code Status on File) Date Activated Date Inactivated Comments 02/01/2023 5:11 PM 02/03/2023 2:15 PM Question Answer Comments Patient has decision-making capacity? Yes Care Teams Securities Lending Trader Relationship Specialty Start Date End Date Pcp, No [address] [place] [address] PCP - General Family Medicine 02/01/23 Felecia Monreal Community Health Worker 05/17/25
--- OUTSIDE RECORDS SUMMARY | 2025-08-08 23:29 | XMS_ITS | Encounter Summary ---
Author Organization Healthcare Address [address] [place] [address] Care Team Providers Care Office Machine Servicer Name Role Phone Pcp, No Primary Care Provider Unavailabl e Felecia Monreal Unavailable Unavailable Encounter Details Date Type Department Care Team ([facility] Contact Info) Description 05/18/2025 Results Follow-Up Medical Office Building Obstetrics and Gynecology [address], [address] [place] [address] Emerald Berger, CLASSIFIER OPERATOR, DNP [address] [place] [address] Social History Tobacco Use Types [...] drink first t paul in the morning (EYE-BLOCKMASON) to steady your nerves or to get [...] documented as of this encounter Care Teams Office Machine Servicer Relationship Specialty Start Date End Date Pcp, [place] [address] PCP - General Family Medicine 02/01/23 Felecia Monreal Community Health Worker 05/17/25 documented as of this encounter
--- OUTSIDE RECORDS SUMMARY | 2025-08-08 23:29 | XMS_ITS | Encounter Summary ---
Author Organization Healthcare Address [address] [place] [address] Care Team Providers Care Company Miner Blasting Name Role Phone Pcp, No Primary Care Provider Unavailabl e Felecia Monreal Unavailable Unavailable Encounter Details Date Type Department Care Team ([facility] Contact Info) Description 07/06/2025 Telephone Medical Office Building Obstetrics and Gynecology [address], [address] [place] [address] Cindy Walden MD [address] [facility] [address] [facility] [address] [place] [address] Social History Tobacco Use Types [...] drink first t paul in the morning (EYE-BIOSOLIDS MANAGEMENT TECHNICIAN) to steady your nerves or to get [...] morning apt. Please call. Best contact number: [phone] (mobile) Optimal time of day to reach caller: ANYTIME Additional comments/information from caller: None Note: Please do not reply to this message. Follow-up communication and further actions as a result of this message need to be communicated with the patient directly, if the patient is not active onMyChart. If the patient is active on MyChart, they will receive notification of the communication/outcome via docTrackr. documented in this encounter Plan of Treatment [...] documented as of this encounter Care Teams Company Miner Blasting Relationship Specialty Start Date End Date Pcp, [place] [address] PCP - General Family Medicine 02/01/23 Felecia Monreal [facility] Health Worker 05/17/25 documented as of this encounter
--- OUTSIDE RECORDS SUMMARY | 2025-08-08 23:29 | XMS_ITS | Encounter Summary ---
Author Organization Healthcare Address [address] [place] [address] Care Team Providers Care Garage Door Service Technician Name Role Phone Pcp, No Primary Care Provider Unavailabl e Felecia Monreal Unavailable Unavailable Encounter Details Date Type Department Care Team ([facility] Contact Info) Description 05/22/2025 Results Follow-Up Medical Office Building Obstetrics and Gynecology [address], [address] [place] [address] Emerald Berger, SUPERVISOR CELL ROOM, DNP [address] [facility] [address] [place] [address] Social History Tobacco Use Types [...] drink first t paul in the morning (EYE-LIQUOR ESTABLISHMENT MANAGER) to steady your nerves or to [...] documented as of this encounter Care Teams Garage Door Service Technician Relationship Specialty Start Date End Date Pcp, [place] [address] PCP - General Family Medicine 02/01/23 Felecia Monreal [facility] Health Worker 05/17/25 documented as of this encounter
--- OUTSIDE RECORDS SUMMARY | 2025-08-08 23:29 | XMS_ITS ---
Author Organization [facility] Address [address] [place] [address] Care Team Providers Care Rolling Mill Plugger Name Role Phone Pcp, No Primary Care Provider Felecia Lloyd Unavailable Unavailable Community Health Worker Status:Active (Active) Program category:Maternal/Women's Health Start date:05/17/2025 Enrollment date:05/17/2025 Related social drivers of health:Intimate Partner Violence, Food Insecurity, Transportation Needs, Housing Stability, Utilities Overview This episode type is for outpatient Community Health Workers enrolling patients in their program. Case Team Name Relationship Phone Felecia Monreal(Responsible Staff) Community Yissel odilia Health Worker Continued Care and Services Coordination
[2025-08-09 01:33] LABS: Hematocrit 30.2 % (37.0-47.0); Hemoglobin 10.6 g/dL (12.2-16.2); Immature Granulocytes % 1.0 %; Mean Corpuscular HGB Conc 35.1 g/dL (31.8-35.4); Mean Corpuscular Hemoglobin 32.4 pg (27.0-31.2); Mean Corpuscular Volume 92.4 fl (81-99); Nucleated Red Blood Cells % 0 %; Platelet Count 334 K/mm3 (142-424); Red Blood Count 3.27 M/mm3 (4.20-5.40); Red Cell Distribution Width-SD 46.2 fL; White Blood Count 13.1 K/mm3 (4.8-10.8)
[2025-08-09 01:51] LABS: Anion Gap 10.9 mEq/L (5-15); Blood Urea Nitrogen 11 mg/dl (7-17); Calcium 9.5 mg/dl (8.4-10.2); Carbon Dioxide 17 mmol/L (22.0-30.0); Chloride 110 mmol/L (98-107); Creatinine Clearance Estimated 233 mL/min (50-200); Creatinine,Serum 0.50 mg/dl (0.52-1.04); Estimated Glomerular Filt Rate 137 ml/min (>60); GFR (African American) 165 ML/MIN (>60); Glucose 91 mg/dl (74-100); Potassium 3.9 mmoL/L (3.5-5.1); Sodium 134 mmol/L (136-145)
[2025-08-09 02:17] LABS: OB Protein,Urine (DIP) Negative (Negative)
--- NOTE | 2025-08-09 08:32 | SW/DCPLANNER ---
Addendum entered by Kathy Srivastava 08/10/25 09:14: Per Central Intake this case did NOT meet criteria for investigation. CM did speak w/ [facility] Supervisor regarding situation and updated case not meeting criteria for investigation. Addendum entered by Kathy Srivastava 08/09/25 09:19: OB staff (Angela) reported that patient did go to [facility] and was transferred to . This was added in Central Intake report. ID# [id number]. I will also update [facility] Supervisor regarding situation and report. Addendum entered by Kathy Srivastava 08/09/25 09:16: UDS on 07/17/25 and 08/09/25 negative for patient. Original Note: I received a consult on this patient regarding no custody of other children and signing out AMA. Per OB nursing staff (Angela) patient was expected to be admitted last night at 6PM for planned induction this AM. Patient did not arrive till 11:30PM on 08/08 and left [facility] without signing out AMA 3 different times. Patient's 16 year old daughter was present for all admissions. First admission at 11:30PM 08/08: Shortly after arrival to OB unit patient began cussing staff and refused to let them start medication for induction. Patient left OB unit within 30 minutes after arrival and refused to sign AMA paperwork. Second admission at 12:30AM 08/09: Patient returned to OB unit and was agreeable to admission. Patient was agreeable for only one OB nurse to be present for her care. Patient was agreeable for staff to get vitals, start IV and place patient on monitor. 1:40AM nursing staff reported to patient that due to minimal care and OB nurse informed patient that there would be a Care Mgt consult placed. Patient then became upset, removed IV that was placed, packed belongings and left the unit refusing to sign AMA paperwork. Third admission at 3:30AM: Patient returned to OB unit. Patient did shower once returning to unit. OB staff was able to collect information including fourth and three living children. Patient agreeable to be put on monitor. OB staff contacted Dr Preston at 5AM and was ordered to proceed w/ induction. Patient was agreeable for staff to check cervix. 6AM patient refused medication, refused to continue monitor, took off monitor due to bands itching and began yelling at staff to exit her room. 6:15AM patient walked off the floor w/ her 16 year old child stated that she was going to vending machine. Patient never returned and IV was in place. [employer] contacted regarding situation. 16 year old daughter returned to OB unit to collect patient's belongings. Patient does have history of schizophrenia and alcohol use. Patient did not begin care till 07/12/25 w/ Dr Preston (stated prior care at ). Due to situation I will make a report to Central Intake this AM and continue to follow up. Patient is not currently admitted on OB unit at this time. CM will continue to follow up.
--- OUTSIDE RECORDS SUMMARY | 2025-08-09 09:50 | XMS_ITS | Encounter Summary ---
Author Organization Healthcare Address [address] [place] [address] Care Team Providers Care Business Banking Relationship Manager Name Role Phone Pcp, No Primary Care Provider Felecia Lloyd Unavailable Unavailable Reason for Visit * Reason Comments Scheduled Induction Patient from outside hospital to be induced * Auth/Cert (Routine) Specialty Diagnoses / Procedures Referred By Gee mendoza Referred To Contact Diagnoses Normal labor Redd Finn, DO [address] [address] Phone: tel: fax: [facility] [address] [place] [address] Phone: tel: fax: Referral ID Status Reason Start Date Expiration Date Visits Re quested Visits Authorized [id number] 1 1 Encounter Details Date Type Department Care Team (Late st Contact Info) Description 08/09/2025 9:50 AM EST - Present Hospital Encounter [facility] [address] [place] [address] Redd Finn, DO [address] [address] Social History Tobacco Use Types Packs/Day Years Used Date Smoking Tobacco: Every Day Cigarettes Smokeless Tobacco: Never Alcohol Use Standard Drinks/Week Comments Not Currently 0 (1 standard drink = 0.6 oz pur e alcohol) no alcohol for 9 weeks CAGE ASSESSMENT Answer Date Recorded Cage unable to access Not on file 08/09/2025 Cage max number of drinks Not on file 2024 Cage Beverages a week Not on file 08/09/2025 Have you ever felt you should CUT down on your d rinking? 1 08/09/2025 Have you been ANNOYED by people criticizing your drinking? 1 08/09/2025 Have you felt GUILTY about your drinking? 1 08/09/2025 Have you had a drink first t paul in the morning ([employer]) to steady your nerves or to get rid of a hangover? 1 08/09/2025 CAGE Questionnaire Score 4 025 Estimated Date of Delivery Comme nts Yes 08/13/2025 Based on Ultraso und Sex and Gender Information Value Date Recorded Sex Assigned at Female 02/01/2023 3:22 PM EDT Legal Sex Female 6:55 PM EDT Gender Identity Female 02/01/2023 3:22 PM EDT Sexual Orientation Not on file documented as of this encounter Last Filed Vital Signs Vital Sign Reading Time Taken Comments Blood Pressure 102/54 08/10/2025 8:45 AM EST Pulse 127 08/10/2025 8:45 AM EST Temperature 36.7 C (98.1 F) 08/10/2025 8:35 AM EST Respiratory Rate 20 08/10/2025 8:35 AM EST Oxygen Saturation 97% 08/10/2025 8:45 AM EST Inhaled Oxygen Concentration - - Weight 102 kg (225 lb) 08/09/2025 1:10 PM EST Height 185.4 cm (6' 1 ) 08/09/2025 1:10 PM EST Body Mass Index 29.69 08/09/2025 1:10 PM EST documented in this encounter Functional Status * Question Answer Date of Assessment Author Precautions None 08/09/2025 11:44 PM EST Daina Johnson RN * Calculated C-SSRS Risk Score (Lifetime/Recent) Answer Date of Assessment Author No Risk Indicated 08/09/2025 3:04 PM EST Preston Guerra RN * Question Answer Date of Assessment Author 1. Wish to be (Past 1 Month) No 025 3:04 PM EST Preston Guerra RN 2. Non-Specific Active Suici lizet Thoughts (Past 1 Month) No 08/09/2025 3:04 PM EST Everett Guerra RN 6. Suicidal Behavior (Lifetime) No 3:04 PM EST Preston Guerra RN documented as of this encounter Mental Status * Question Answer Entry Date Author Precautions None 08/09/2025 11:44 PM EST Daina Johnson RN documented in this encounter Miscellaneous Notes * Clinician Note - Radames Cordon MD - 08/10/2025 8:34 AM EST Patient resting, feeling some increasing pressure, no VB and states +FM O: B/P 119/81 HR 118 R 18 98% RA CE: 0 asynclitic presentation FHT: 150-155 mod variability + accels, variable decels noted (not every ctx) Cat 2 but reassuring [place]: Q 5-[address] not adequate MVUs A/P: 40yo here for IOL with complicted by complex ALBERT and now syphillis (new diagnosis on admission). Encouraged frequent position changes OK to restart pitocin if labor stalls PCN G started for new syphillis diagnosis. * Care Plan - Daina Johnson RN - 08/09/2025 11:55 PM EST Problem: Adult Inpatient Plan of Care Goal: Plan of Care Review Outcome: Ongoing, Progressing Flowsheets Taken 08/09/2025 2354 by Daina Johnson RN Progress: improving Taken 08/09/2025 1337 by Preston Guerra RN Plan of Care Reviewed With: patient Goal: Patient-Specific Goal (Individualized) Outcome: Ongoing, Progressing Flowsheets (Taken 08/09/2025 2344) Patient/Family-Specific Goals (Include Timeframe): patient will notify nurse of pain or pressure during this shift Individualized Care Needs: reassurance provided cares clustered Anxieties, Fears or Concerns: pt anxious about delivery Goal: Absence of Hospital-Acquired Illness or Injury Outcome: Ongoing, Progressing Goal: Optimal Comfort and Wellbeing Outcome: Ongoing, Progressing Intervention: Monitor Pain and Promote Comfort Flowsheets (Taken 08/09/2025 2354) Pain Management Interventions: position adjusted Problem: Labor Goal: Hemostasis Outcome: Ongoing, Progressing Goal: Stable Wellbeing Outcome: Ongoing, Progressing Intervention: Promote and Monitor Wellbeing Flowsheets (Taken 08/09/2025 1337 by Preston Guerra, RN) Wellbeing Promotion: heart rate monitored uterine contraction activity assessed Goal: Effective Progression to Delivery Outcome: Ongoing, Progressing Goal: Absence of Infection Signs and Symptoms Outcome: Ongoing, Progressing Goal: Acceptable Pain Control Outcome: Ongoing, Progressing Goal: Normal Uterine Contraction Pattern Outcome: Ongoing, Progressing * Care Plan - Preston Guerra RN - 08/09/2025 1:39 PM EST Problem: Adult Inpatient Plan of Care Goal: Plan of Care Review Outcome: Ongoing, Progressing Flowsheets (Taken 08/09/2025 1337) Progress: no change Plan of Care Reviewed With: patient Goal: Patient-Specific Goal (Individualized) Outcome: Ongoing, Progressing Goal: Absence of Hospital-Acquired Illness or Injury Outcome: Ongoing, Progressing Goal: Optimal Comfort and Wellbeing Outcome: Ongoing, Progressing Intervention: Provide Person-Centered Care Flowsheets (Taken 08/09/2025 1337) Trust Relationship/Rapport: care explained choices provided Problem: Labor Goal: Hemostasis Outcome: Ongoing, Progressing Goal: Stable Wellbeing Outcome: Ongoing, Progressing Intervention: Promote and Monitor Wellbeing Flowsheets (Taken 08/09/2025 1337) Wellbeing Promotion: heart rate monitored uterine contraction activity assessed Goal: Effective Progression to Delivery Outcome: Ongoing, Progressing Goal: Absence of Infection Signs and Symptoms Outcome: Ongoing, Progressing Goal: Acceptable Pain Control Outcome: Ongoing, Progressing Goal: Normal Uterine Contraction Pattern Outcome: Ongoing, Progressing documented in this encounter Plan of Treatment Pending Results Name Type Priority Associated Diagnoses Date /Time Urine culture Microbiology Routine 6:42 PM EST RPR Screening with Reflex to Titer Lab STAT 08/10/2025 4:18 AM EST Scheduled Orders Name Type Priority Associated Diagnoses Orde r Schedule Urine culture Microbiology Routine Once (Lab ) for 1 Occurrences starting 08/09/2025 until 08/09/2025 RPR Screening with Reflex to Titer Lab Routine Once (Lab) for 1 Occurrences starting 08/10/2025 until 08/10/2025 documented as of this encounter Procedures * The patient is currently admitted. The information in this section might not be complete until the patient is discharged. Procedure Name Priority Date/Time Associated Diagnosis Comments TREPONEMA PALLIDUM (SYPHILIS) ANTIBODIES WITH REFLEX TO RPR AND RPR TITER (THOSE WITH NO KNOWN SYPHILIS) STAT 08/10/2025 4:18 AM EST DRUG ABUSE SCREEN, URINE Routine 08/09/2025 1:06 PM EST HEPATITIS B SURFACE ANTIGEN Routine 08/09/2025 11:52 AM EST RPR SCREENING WITH REFLEX TO TITER (REFLEX ONLY) Routine 08/09/2025 11:52 AM EST HIV 1/2 ANTIBODY/ANTIGEN SCREEN W/REFLEX TO HIV 1/2 ANTIBODY DIFFERENTIATION Routine 08/09/2025 11:52 AM EST TREPONEMA PALLIDUM (SYPHILIS) ANTIBODIES WITH REFLEX TO RPR AND RPR TITER (THOSE WITH NO KNOWN SYPHILIS) Routine 08/09/2025 11:52 AM EST HIV 1/2 ANTIBODY/ANTIGEN SCREEN WITH REFLEX TO HIV I/II DIFFERENTIATION Routine 08/09/2025 11:52 AM EST RPR TITER Routine 08/09/2025 11:52 AM EST HEPATITIS C ANTIBODY W/REFLEX TO HCV QUANT PCR Routine 08/09/2025 11:52 AM EST RUBELLA ANTIBODY IGG Routine 08/09/2025 11:52 AM EST HEPATITIS B SURFACE ANTIGEN Routine 08/09/2025 11:52 AM EST CBC WITH AUTO DIFFERENTIAL Routine 08/09/2025 11:52 AM EST TYPE AND SCREEN Routine 08/09/2025 11:52 AM EST COMPREHENSIVE METABOLIC PANEL, PLASMA Routine 08/09/2025 11:52 AM EST documented in this encounter Results * (ABNORMAL) Treponema Pallidum (Syphilis) Antibodies with Reflex to RPR and RPR Titer (Those with NOknown Syphilis) (08/10/2025 4:18 AM EST) Syphilis Antibody (IgG+IgM) Reactive( A) Nonreactive 08/10/2025 5:31 AM EST [facility] Comment:Result suggests infe ction with Treponema pallidum at some point in the past but cannot distinguish between current and past infection. Rapid Plasma Reagin (RPR) has been ordered to help distinguish between these two scenarios. Please correlate with RPR result. Blood Venous blood specimen / Unknown Venipuncture / Unknown 08/10/2025 4:18 AM EST 08/10/2025 4:28 AM EST us Redd Finn DO LAB BLOOD ORDERABLES Final Re sult [facility] [address] [place] [address] * Drug Abuse Screen Urine (08/09/2025 1:06 PM EST) Pathologist [facility] Amphetamine Screen Urine Negative Cutoff: 500 ng/mL 08/09/2025 10:49 PM EST [facility] Benzodiazepines Screen Urine Negative Cutoff: 200 ng/mL 08/09/2025 10:49 PM EST [facility] Cannabinoid Screen Urine Negative Cutoff: 50 ng/mL 08/09/2025 10:49 PM EST [facility] Cocaine Screen Urine Negative Cutoff: 300 ng/mL 08/09/2025 10:49 PM EST [facility] Barbiturate Screen Urine Negative Cutoff: 200 ng/mL 08/09/2025 10:49 PM EST [facility] Opiate Screen Urine Negative Cutoff: 300 ng/mL 08/09/2025 10:49 PM EST [facility] Methadone Screen Urine Negative Cutoff: 300 ng/mL 08/09/2025 10:49 PM EST [facility] Buprenorphine Screen Urine Negative Cutoff: 10 ng/mL 08/09/2025 10:49 PM EST [facility] Fentanyl Screen Urine Negative Cutoff: 1 ng/mL 08/09/2025 10:49 PM EST [facility] Oxycodone Screen Urine Negative Cutoff: 100 ng/mL 08/09/2025 10:49 PM EST [facility] Urine Urine specimen obtained by clean catch procedure / Unknown Non-blood Collection / Unknown 08/09/2025 1:06 PM EST 08/09/2025 1:21 PM EST us Redd Finn DO LAB URINE ORDERABLES Final Re sult [facility] [address] [place] [address] * (ABNORMAL) RPR Titer (08/09/2025 11:52 AM EST) Pathologist [facility] RPR Titer Pos 1:4(A) <1:1 08/10/2025 2:38 AM EST [facility] Blood Venous blood specimen / Unknown Venipuncture / Unknown 08/09/2025 11:52 AM EST 08/09/2025 12:19 PM EST us Redd Finn DO LAB BLOOD ORDERABLES Final Re sult Performing Organization Address [facility]/ZIP Co de Phone Number [facility] [address] [place] [address] * (ABNORMAL) RPR Screening with Reflex to Titer (08/09/2025 11:52 AM EST) Rapid Plasma Reagin Reactive( A) Non Reactive 08/10/2025 1:58 AM EST [facility] Blood Venous blood specimen / Unknown Venipuncture / Unknown 08/09/2025 11:52 AM EST 08/09/2025 12:19 PM EST us Redd Finn DO LAB BLOOD ORDERABLES Final Re sult Performing Organization Address City/[facility]/ZIP Co de Phone Number [facility] [address] [place] [address] * HIV 1 & 2 Antibody/Antigen Screen (08/09/2025 11:52 AM EST) HIV 1 & 2 Antibody/Antigen Screen Non Reactive Non Reactive 08/09/2025 1:56 PM EST [facility] Comment:Screening for HIV 1 & 2 antibodies, and P24 antigen is NONREACTIVE. No confirmatory testing is required. Blood Venous blood specimen / Unknown Venipuncture / Unknown 08/09/2025 11:52 AM EST 08/09/2025 12:12 PM EST Redd Finn DO LAB BLOOD ORDERABLES Final Re sult Performing Organization Address City/[facility] Co de Phone Number [facility] [address] [place] [address] * Hepatitis B Surface Antigen (08/09/2025 11:52 AM EST) [facility] Hepatitis B Surf Antigen Negative Negative 08/09/2025 2:20 PM EST [facility] Blood Venous blood specimen / Unknown Venipuncture / Unknown 08/09/2025 11:52 AM EST 08/09/2025 12:19 PM EST Redd Finn DO LAB BLOOD ORDERABLES Final Re sult Performing Organization Address [facility] de Phone Number [facility] [address] [place] [address] * (ABNORMAL) Rubella Antibody IgG (08/09/2025 11:52 AM EST) [facility] Rubella Antibody IgG Positive(A ) Negative 08/09/2025 3:02 PM EST [facility] Comment: Rubella IgG Result Interpretation: Negative: No IgG antibody specific to the rubella virus detected. Patient is presumed not to have had a previous exposure to rubella through infection or vaccination. Equivocal: Serologic status cannot be determined. Repeat testing in 10-14 days may be helpful. Positive: IgG antibody specific to rubella detected. IgG antibody levels are at a level considered to indicate positive immunity through infection or vaccination. Blood Venous blood specimen / Unknown Venipuncture / Unknown 08/09/2025 11:52 AM EST 08/09/2025 12:19 PM EST Redd Finn DO LAB BLOOD ORDERABLES Final Re sult [facility] [address] [place] [address] * Hepatitis C antibody (08/09/2025 11:52 AM EST) Pathologist [facility] Hepatitis C Antibody Negative Negative 08/09/2025 1:53 PM EST [facility] Blood Venous blood specimen / Unknown Venipuncture / Unknown 08/09/2025 11:52 AM EST 08/09/2025 12:12 PM EST Redd Finn DO LAB BLOOD ORDERABLES Final Re sult Performing Organization Address City/[facility]/ZIP Co de Phone Number [facility] [address] [place] [address] * (ABNORMAL) Comprehensive metabolic panel (08/09/2025 11:52 AM EST) [facility] Glucose, Plasma 78 74 - 99 mg/dL 08/09/2025 1:46 PM EST [facility] BUN, Plasma 8 7 - 21 mg/dL 08/09/2025 1:46 PM EST [facility] Creatinine, Plasma 0.42(L) 0.60 - 1.10 mg/dL 08/09/2025 1:46 PM EST [facility] BUN/Creatinine Ratio 19 08/09/2025 1:46 PM EST [facility] Sodium, Plasma 139 136 - 145 mmol/L 08/09/2025 1:46 PM EST [facility] Potassium, Plasma 3.9 3.6 - 4.9 mmol/L 08/09/2025 1:46 PM EST [facility] Chloride, Plasma 109(H) 97 - 107 mmol/L 08/09/2025 1:46 PM EST [facility] CO2, Plasma 18(L) 22 - 29 mmol/L 08/09/2025 1:46 PM EST [facility] Anion Gap 12 6 - 16 mmol/L 08/09/2025 1:46 PM EST [facility] Total Calcium, Plasma 8.9 8.9 - 10.2 mg/dL 08/09/2025 1:46 PM EST [facility] Total Protein 6.2(L) 6.3 - 7.9 g/dL 08/09/2025 1:46 PM EST [facility] Albumin, Plasma 3.2(L) 3.5 - 5.2 g/dL 08/09/2025 1:46 PM EST [facility] AST, Plasma 23 10 - 35 U/L 08/09/2025 1:46 PM EST [facility] ALT, Plasma 25 10 - 35 U/L 08/09/2025 1:46 PM EST [facility] Alkaline Phosphatase, Plasma 273(H) 35 - 104 U/L 08/09/2025 1:46 PM EST [facility] Total Bilirubin, Plasma 0.6 0.2 - 1.1 mg/dL 08/09/2025 1:46 PM EST [facility] eGFRcr 127.0 mL/min/1.7 3m*2 08/09/2025 1:46 PM EST [facility] Comment:Reported eGFRcr in m L/min/1.73m2 is based the CKD-EPI 2020 equation that does not use a race coefficient. Blood Venous blood specimen / Unknown Venipuncture / Unknown 08/09/2025 11:52 AM EST 08/09/2025 12:12 PM EST us Redd Finn DO LAB BLOOD ORDERABLES Final Re sult [facility] [address] [place] [address] * (ABNORMAL) Treponema Pallidum (Syphilis) Antibodies with Reflex to RPR and RPR Titer (Those with NOknown Syphilis) (08/09/2025 11:52 AM EST) Syphilis Antibody (IgG+IgM) Reactive( A) Nonreactive 08/09/2025 2:24 PM EST [facility] Comment:Result suggests infe ction with Treponema pallidum at some point in the past but cannot distinguish between current and past infection. Rapid Plasma Reagin (RPR) has been ordered to help distinguish between these two scenarios. Please correlate with RPR result. Blood Venous blood specimen / Unknown Venipuncture / Unknown 08/09/2025 11:52 AM EST 08/09/2025 12:19 PM EST us Redd Finn DO LAB BLOOD ORDERABLES Final Re sult [facility] [address] [place] [address] * (ABNORMAL) CBC and differential (08/09/2025 11:52 AM EST) WBC Count 14.04(H) 3.70 - 10.30 10*3/uL LAB HEMATOLOGY METHOD 08/09/2025 1:33 PM EST [facility] RBC Count 3.19(L) 3.90 - 5.20 10*6/uL LAB HEMATOLOGY METHOD 08/09/2025 1:33 PM EST [facility] HGB 10.5(L) 11.2 - 15.7 g/dL LAB HEMATOLOGY METHOD 08/09/2025 1:33 PM EST [facility] HCT 29.8(L) 34.0 - 45.0 % LAB HEMATOLOGY METHOD 08/09/2025 1:33 PM EST [facility] Platelet Count 320 155 - 369 10*3/uL LAB HEMATOLOGY METHOD 08/09/2025 1:33 PM EST [facility] MCV 93 79 - 98 fL LAB HEMATOLOGY METHOD 08/09/2025 1:33 PM EST [facility] MCH 32.9(H) 26.0 - 32.0 pg LAB HEMATOLOGY METHOD 08/09/2025 1:33 PM EST [facility] MCHC 35.2 30.7 - 35.5 g/dL LAB HEMATOLOGY METHOD 08/09/2025 1:33 PM EST [facility] RDW 14.1 11.5 - 14.5 % LAB HEMATOLOGY METHOD 08/09/2025 1:33 PM EST [facility] MPV 12.5 8.8 - 12.5 fL LAB HEMATOLOGY METHOD 08/09/2025 1:33 PM EST [facility] nRBC 0.0 <=0.0 per 100 WBCs LAB HEMATOLOGY METHOD 08/09/2025 1:33 PM EST [facility] Differential Type Automated LAB HEMATOLOGY METHOD 08/09/2025 1:33 PM EST [facility] Neutrophils % 71 % LAB HEMATOLOGY METHOD 08/09/2025 1:33 PM EST [facility] Lymphocytes % 17 % LAB HEMATOLOGY METHOD 08/09/2025 1:33 PM EST [facility] Monocytes % 9 % LAB HEMATOLOGY METHOD 08/09/2025 1:33 PM EST [facility] Eosinophils % 2 % LAB HEMATOLOGY METHOD 08/09/2025 1:33 PM EST [facility] Basophils % 0 % LAB HEMATOLOGY METHOD 08/09/2025 1:33 PM EST [facility] Immature Granulocytes % 1 % LAB HEMATOLOGY METHOD 08/09/2025 1:33 PM EST [facility] Neutrophils Absolute 10.02(H) 1.60 - 6.10 10*3/uL LAB HEMATOLOGY METHOD 08/09/2025 1:33 PM EST [facility] Lymphocytes Absolute 2.39 1.20 - 3.90 10*3/uL LAB HEMATOLOGY METHOD 08/09/2025 1:33 PM EST [facility] Monocytes Absolute 1.21(H) 0.30 - 0.90 10*3/uL LAB HEMATOLOGY METHOD 08/09/2025 1:33 PM EST [facility] Eosinophils Absolute 0.23 0.00 - 0.50 10*3/uL LAB HEMATOLOGY METHOD 08/09/2025 1:33 PM EST [facility] Basophils Absolute 0.04 0.00 - 0.10 10*3/uL LAB HEMATOLOGY METHOD 08/09/2025 1:33 PM EST [facility] Immature Granulocytes Absolute 0.15(H) 0.00 - 0.06 10*3/uL LAB HEMATOLOGY METHOD 08/09/2025 1:33 PM EST [facility] Blood Venous blood specimen / Unknown Venipuncture / Unknown 08/09/2025 11:52 AM EST 08/09/2025 12:12 PM EST [facility] - 08/09/2025 1:33 PM EST Therapeutic decision making should be based on absolute values, rather than percentages. us Redd Finn DO LAB BLOOD ORDERABLES Final Re sult [facility] [address] [place] [address] * Type and Screen (08/09/2025 11:52 AM EST) ABO/Rh O Positive 08/09/2025 12:07 PM EST BLOOD [facility]ANK Antibody Screen Negative 08/09/2025 12:07 PM EST [facility]LO[facility] Specimen Expiration 08/12/2025 23:59 08/09/2025 12:07 PM EST [facility]LO[facility]ANK Blood Venous blood specimen / Unknown Venipuncture / Unknown 08/09/2025 11:52 AM EST 08/09/2025 12:07 PM EST us Redd Finn DO LAB BLOOD BANK TEST ORDERABLE S Final Result BLOOD BANK [address] [place] [address], documented in this encounter Visit Diagnoses Diagnosis Normal labor- Primary documented in this encounter Admitting Diagnoses Diagnosis Normal labor documented in this encounter Administered Medications Active Administered Medications - up to 3 most recent administrations Medication Order MAR Action Action Date Dose Rate Site acetaminophen (Tylenol) tablet 650 mg 650 mg, Oral, Every 4 hours PRN, Starting on Thu08/09/25 at 1018, Until Discontinued, Routine, Pre-Delivery, Mild Plus Pain with CPOT DVPRS FLACC PAINAD NPASS NRS Rico-Gutiérrez Faces score of 1 or greater OR NIPS score 2 or greater Given 08/10/2025 7:38 AM EST 650 mg azithromycin (Zithromax) 500 mg in sodium chloride 0.9% 250 mL IVPB (vial adapter required) 500 mg, Intravenous, Once in OR, 1 dose, Starting on Thu08/09/25 at 1020, Until Discontinued, Routine, Pre-Delivery calcium carbonate (Tums) chewable tablet 1,000 mg 1,000 mg, Oral, 4 times daily PRN, Starting on Thu08/09/25 at 1018, Until Discontinued, Routine, Pre-Delivery, indigestion, heartburn Given 08/10/2025 7:52 AM EST 1,000 mg ceFAZolin (Ancef) injection 2 g 2 g, Intravenous, Once in OR, 1 dose, Starting on Thu08/09/25 at 1019, Until Discontinued, Routine, Pre-Delivery diphenhydrAMINE (Benadryl) injection 25 mg 25 mg, Intravenous, Every 6 hours PRN, Starting on Thu08/09/25 at 1820, Until Discontinued, Routine, itching, allergies, sleep, vomiting, nausea Given 08/10/2025 7:38 AM EST 25 mg Given 08/10/2025 1:33 AM EST 25 mg Given 08/09/2025 6:47 PM EST 25 mg fentanyl + bupivacaine clinician bolus dose 1-5 mL 1-5 mL, Epidural, As needed, Starting on Thu08/09/25 at 1700, Until Discontinued, Routine, Moderate Severe Pain with CPOT score of 3 or greater OR FLACC PAINAD NPASS NRS Rico-Gutiérrez Faces score of 4 or greater OR DVPRS NIPS score of 5 or greater Bolus 08/09/2025 9:47 PM EST 5 mL New Bag 08/09/2025 5:33 PM EST 8 mL fentaNYL 2 mcg/mL + bupivacaine 1 mg/mL epidural 100 mL PCEA Continuous Rate: 0 mL/hr (0 mcg/hr), Patient Bolus Dose: 5 mL (10 mcg), Patient Bolus Lockout Interval: 15 Minutes, Programmed Intermittent Bolus Dose (NO Continuous Rate): 8 mL, Programmed Intermittent Bolus Dose Interval - NO Continuous Rate: 45 min, Epidural, Routine New Bag 08/10/2025 7:39 AM EST New Bag 08/10/2025 2:31 AM EST New Bag 08/09/2025 9:56 PM EST lactated Ringer's infusion 75 mL/hr, Intravenous, Continuous, Starting on Thu08/09/25 at 1115, Until Discontinued, Routine Rate/Dose Verify 08/10/2025 4:55 AM EST 75 mL /hr New Bag 08/10/2025 1:30 AM EST 75 mL/hr 75 mL/hr Rate/Dose Verify 08/09/2025 11:51 PM EST 75 mL/ hr miSOPROStol (Cytotec) split tablet 25 mcg 25 mcg, Vaginal, Every 4 hours PRN, Starting on Thu08/09/25 at 1245, Until Discontinued, Routine, cervical ripening Given 08/09/2025 1:02 PM EST 25 mcg multivitamin tablet 1 tablet 1 tablet, Oral, Daily, First dose on Thu08/09/25 at 1115, Until Discontinued, Routine, Pre-Delivery nicotine (Nicoderm CQ) 7 MG/24HR patch 1 patch 1 patch, Transdermal, Daily, First dose on Thu08/09/25 at 1300, Until Discontinued, Routine Medication Applied 08/09/2025 12:31 PM EST 1 patch Left Arm ondansetron (Zofran) injection 4 mg 4 mg, Intravenous, Every 6 hours PRN, Starting on Thu08/09/25 at 1820, Until Discontinued, Routine, nausea, vomiting oxytocin (Pitocin) infusion in sodium chloride 0.9% 30 units/500 mL 0-30 tyra-units/min (0-30 mL/hr), Intravenous, Titrated, Starting on Thu08/09/25 at 1845, Until Discontinued, Routine Rate/Dose Verify 08/10/2025 2:46 AM EST 3 tyra-units/min 3 mL/hr Rate/Dose Change 08/10/2025 2:46 AM EST 3 tyra-units/min 3 mL/hr Rate/Dose Verify 08/10/2025 1:02 AM EST 7 tyra-units/min 7 mL/hr penicillin G benzathine (Bicillin-LA) injection 2.4 Million Units 2.4 Million Units, Intramuscular, Every 7 days, 2 doses, First dose on Thu08/10/25 at 0500, Last dose on Thu08/17/25 at 0500, RoutineIndications:Syphi lis Given 08/10/2025 7:39 AM EST 2.4 Million Units Left Ventrogluteal terbutaline (Brethine) injection 0.25 mg 0.25 mg, Subcutaneous, Once as needed, 1 dose, Starting on Thu08/09/25 at 1018, Until Discontinued, Routine, Pre-Delivery, per MD ordersIndications:Tachys ystole Inactive Administered Medications - up to 3 most recent administrations Medication Order MAR Action Action Date Dose Rate Site butorphanol (Stadol) injection 0.5 mg 0.5 mg, Intravenous, Once, 1 dose, On Thu08/09/25 at 1715, Routine Given 08/09/2025 4:20 PM EST 0.5 mg lactated Ringer's bolus 500 mL 500 mL, Intravenous, Once, 1 dose, On Thu08/09/25 at 1800, Administer over 2 Hours, Routine KVO 08/09/2025 7:09 PM EST 10 mL/hr Restarted 08/09/2025 5:09 PM EST 250 mL/hr New Bag 08/09/2025 5:08 PM EST 500 mL 250 mL/hr sodium citrate-citric acid (Bicitra) 500-334 MG/5ML solution 30 mL 30 mL, Oral, Once in OR, 1 dose, Starting on Thu08/09/25 at 1018, Until Thu08/09/25 at 2119, Routine, Pre-Delivery Given 08/09/2025 9:19 PM EST 30 mL documented in this encounter Active and Recently Administered Medications Times are shown in EST. Scheduled Medication Order 08/08/2025 08/09/2025 08/10/2025 azithromycin (Zithromax) 500 mg in sodium chloride 0.9% 250 mL IVPB (vial adapter required) 500 mg, Intravenous, Once in OR, 1 dose, Starting on Thu08/09/25 at 1020, Until Discontinued, Routine, Pre-Delivery butorphanol (Stadol) injection 0.5 mg (COMPLETED) 0.5 mg, Intravenous, Once, 1 dose, On Thu08/09/25 at 1715, Routine 1620 (Given - Provider: Preston Guerra RN) ceFAZolin (Ancef) injection 2 g 2 g, Intravenous, Once in OR, 1 dose, Starting on Thu08/09/25 at 1019, Until Discontinued, Routine, Pre-Delivery lactated Ringer's bolus 500 mL (COMPLETED) 500 mL, Intravenous, Once, 1 dose, On Thu08/09/25 at 1800, Administer over 2 Hours, Routine 1708 (New Bag - Provider: Preston Guerra RN)1708 (Paused - Provider: Preston Guerra RN)1709 (Restarted - Provider: Preston Guerra, JAX)1909 (KVO - Provider: Preston Guerra, JAX) multivitamin tablet 1 tablet 1 tablet, Oral, Daily, First dose on Thu08/09/25 at 1115, Until Discontinued, Routine, Pre-Delivery 1115 (Due) 0900 (Due) nicotine (Nicoderm CQ) 7 MG/24HR patch 1 patch 1 patch, Transdermal, Daily, First dose on Thu08/09/25 at 1300, Until Discontinued, Routine 1231 (Medication Applied - Provider: Preston Guerra RN) 0900 (Due) penicillin G benzathine (Bicillin-LA) injection 2.4 Million Units 2.4 Million Units, Intramuscular, Every 7 days, 2 doses, First dose on Luana 08/10/25 at 0500, Last dose on Thu08/17/25 at 0500, Routine 0739 (Given - Provid er: Emerald Hardwick RN) sodium citrate-citric acid (Bicitra) 500-334 MG/5ML solution 30 mL (COMPLETED) 30 mL, Oral, Once in OR, 1 dose, Starting on Thu08/09/25 at 1018, Until Thu08/09/25 at 2119, Routine, Pre-Delivery 2118 (Given - Provider: Daina Johnson RN - Comment: pt given for acid reflux per request approved by Cami Hubbard MD) Continuous Medication Order 08/08/2025 08/09/2025 08/10/2025 fentaNYL 2 mcg/mL + bupivacaine 1 mg/mL epidural 100 mL PCEA(Linked Group 1) Continuous Rate: 0 mL/hr (0 mcg/hr), Patient Bolus Dose: 5 mL (10 mcg), Patient Bolus Lockout Interval: 15 Minutes, Programmed Intermittent Bolus Dose (NO Continuous Rate): 8 mL, Programmed Intermittent Bolus Dose Interval - NO Continuous Rate: 45 min, Epidural, Routine 173 (New Bag - Provider: Preston Guerra RN)173 (Continued by Anesthesia - Provider: Patricia Roland MD)1806 (Canceled Entry - Provider: Preston Guerra RN)215 (New Bag - Provider: Daina Johnson RN) 0231 (New Bag - Provider: Daina Johnson RN)0739 (New Bag - Provider: Emerald Hardwick RN) lactated Ringer's infusion 75 mL/hr, Intravenous, Continuous, Starting on Thu08/09/25 at 1115, Until Discontinued, Routine 2120 (New Bag - Provider: Daina Johnson RN)212 (Rate/Dose Verify - Provider: Daina Johnson RN)2351 (Rate/Dose Verify - Provider: Daina Johnson RN) 0130 (New Bag - Provider: Daina Johnson RN)0455 (Rate/Dose Verify - Provider: Tricia Rendon RN) oxytocin (Pitocin) infusion in sodium chloride 0.9% 30 units/500 mL 0-30 tyra-units/min (0-30 mL/hr), Intravenous, Titrated, Starting on Thu08/09/25 at 1845, Until Discontinued, Routine 182 (New Bag - Provider: Preston Guerra RN)1909 (Handoff - Provider: Preston Guerra RN)1956 (Rate/Dose Change - Provider: Daina Johnson RN)1956 (Rate/Dose Verify - Provider: Daina Johnson RN)2125 (Rate/Dose Verify - Provider: Daina Johnson RN)214 (Rate/Dose Verify - Provider: Daina Johnson RN)233 (Rate/Dose Change - Provider: Daina Johnson RN)233 (Rate/Dose Verify - Provider: Daina Johnson RN)235 (Rate/Dose Verify - Provider: Daina Johnson RN) 010 (Rate/Dose Change - Provider: Tricia Rendon RN)0102 (Rate/Dose Verify - Provider: Daina Johnson RN - Comment: [Action automatically changed])0246 (Rate/Dose Change - Provider: Daina Johnson RN - Comment: pitocin halfed per Kenn hamilton MD for decels)0246 (Rate/Dose Verify - Provider: Tricia Rendon RN)0454 (Stopped - Provider: Tricia Rendon RN) PRN Medication Order 08/08/2025 08/09/2025 08/10/2025 acetaminophen (Tylenol) tablet 650 mg 650 mg, Oral, Every 4 hours PRN, Starting on Thu08/09/25 at 1018, Until Discontinued, Routine, Pre-Delivery, Mild Plus Pain with CPOT DVPRS FLACC PAINAD NPASS NRS Rico-Gutiérrez Faces score of 1 or greater OR NIPS score 2 or greater 0738 (Given - Provid er: Emerald Hardwick RN) calcium carbonate (Tums) chewable tablet 1,000 mg 1,000 mg, Oral, 4 times daily PRN, Starting on Thu08/09/25 at 1018, Until Discontinued, Routine, Pre-Delivery, indigestion, heartburn 0752 (Given - Provid er: Emerald Hardwick RN) diphenhydrAMINE (Benadryl) injection 25 mg 25 mg, Intravenous, Every 6 hours PRN, Starting on Thu08/09/25 at 1820, Until Discontinued, Routine, itching, allergies, sleep, vomiting, nausea 1847 (Given - Provider: Preston Guerra, RN) 0133 (Given - Provider: Daina Johnson, RN)0738 (Given - Provider: Emerald Hardwick, JAX) fentanyl + bupivacaine clinician bolus dose 1-5 mL(Linked Group 1) 1-5 mL, Epidural, As needed, Starting on Thu08/09/25 at 1700, Until Discontinued, Routine, Moderate Severe Pain with CPOT score of 3 or greater OR FLACC PAINAD NPASS NRS Rico-Gutiérrez Faces score of 4 or greater OR DVPRS NIPS score of 5 or greater 1733 (New Bag - Provider: Patricia Roland MD)2147 (Bolus - Provider: Osman Morris DO) miSOPROStol (Cytotec) split tablet 25 mcg 25 mcg, Vaginal, Every 4 hours PRN, Starting on Thu08/09/25 at 1245, Until Discontinued, Routine, cervical ripening 1302 (Given - Provider: Preston Guerra, JAX) ondansetron (Zofran) injection 4 mg 4 mg, Intravenous, Every 6 hours PRN, Starting on Thu08/09/25 at 1820, Until Discontinued, Routine, nausea, vomiting terbutaline (Brethine) injection 0.25 mg 0.25 mg, Subcutaneous, Once as needed, 1 dose, Starting on Thu08/09/25 at 1018, Until Discontinued, Routine, Pre-Delivery, per MD orders Linked Groups Order Group 1: fentaNYL 2 mcg/mL + bupivacaine 1 mg/mL epidural 100 mL PCEAJump to med Continuous Rate: 0 mL/hr (0 mcg/hr), Patient Bolus Dose: 5 mL (10 mcg), Patient Bolus Lockout Interval: 15 Minutes, Programmed Intermittent Bolus Dose (NO Continuous Rate): 8 mL, Programmed Intermittent Bolus Dose Interval - NO Continuous Rate: 45 min, Epidural, Routine And fentanyl + bupivacaine clinician bolus dose 1-5 mLJump to med 1-5 mL, Epidural, As needed, Starting on Thu08/09/25 at 1700, Until Discontinued, Routine, Moderate Severe Pain with CPOT score of 3 or greater OR FLACC PAINAD NPASS NRS Rico-Gutiérrez Faces score of 4 or greater OR DVPRS NIPS score of 5 or greater documented in this encounter Additional Health Concerns [...] documented as of this encounter Care Teams Business Banking Relationship Manager Relationship Specialty Start Date End Date Pcp, [place] [address] PCP - General Family Medicine 02/01/23 Felecia Monreal [facility] Worker 05/17/25 documented as of this encounter
[2025-08-09 11:12] LABS: RPR W/RFX Titers Weak Reactive (Nonreactive)
[2025-08-09 11:13] LABS: RPR Titers 1:2 (Nonreactive)
--- NOTE | 2025-08-09 11:22 | EXP.HPDC ---
General Admission date:: 08/08/25 Discharge date: 08/09/25 *Admission Date: 08/08/25 *Chief complaint: Term , history of alcohol abuse early in , left AMA *History of present illness: She is a 40-year-old 4 para 3 who is 39 weeks gestational age. She is admitted for induction of labor at term. She was admitted on the evening of August 08 for the patient's convenience. Normally we would admit her at 5 AM on the but she had difficulty with transportation and it was easier for her to get here the evening prior so that we could start her induction early on August 09. [facility] Disclaimer: The information contained in this section may have been updated after the patient was seen, as this information can be updated by other users. Family History Encounter for related examination in third trimester Social History Smoking Status: Unknown if ever smoked alcohol intake: former current occupational status: unemployed Travel in the last 8 weeks?: None Have you lived/traveled outside [place] in past 30 days?: No Contact w/someone who lives/traveled outside US past 30 days?: No Exposure to someone with infectious disease in past 14 days?: No Do you have a fever (greater than 100.4 F or 38 C)?: No Have you tested positive for COVID-19?: No Exposed to someone with COVID-19 in past 14 days?: No Do you have a sore throat?: No Do you have a cough?: No Do you have any weakness?: No Do you have any diarrhea?: No Are you experiencing any unusual bleeding?: No Do you have any muscle aches/pain?: No Do you have any abdominal pain?: No Are you experiencing loss of taste or smell?: No Other Medical History Have you received the Flu Vaccine for this season: No Have you received the Pneumonia Vaccine: No Review of Systems Review of Systems Review of systems:: pertinent systems reviewed and negative unless documented below Exam Data for Last 24 hours Vital signs and Labs for Last 24 Hours: Laboratory Results - last 24 hr 08/09/25 01:00: Urine Protein Negative 08/09/25 01:08: WBC 13.1 H, RBC 3.27 L, Hgb 10.6 L, Hct 30.2 L, MCV 92.4, MCH 32.4 H, MCHC 35.1, RDW 13.7, Plt Count 334, MPV 12.2 H, Neut % (Auto) 70.9, Lymph % (Auto) 17.0, Yancey % (Auto) 8.3, Eos % (Auto) 2.5, Baso % (Auto) 0.3, Neut # (Auto) 9.3 H, Lymph # (Auto) 2.2, Yancey # (Auto) 1.1 H, Eos # (Auto) 0.3, Baso # (Auto) 0.0, Sodium 134 L, Potassium 3.9, Chloride 110 H, Carbon Dioxide 17 L, Anion Gap 10.9, BUN 11, Creatinine 0.50 L, Estimated Creat Clear 233, Estimated GFR 137, Est GFR ( Amer) 165, Glucose 91, Calcium 9.5, RPR w/Rflx to Titer Weak reactive A, Blood Type O Positive, Antibody Screen Negative I & O for Last 24 hours: Intake & Output 08/06/25 08/07/25 08/08/25 08/09/25 11:59 11:59 11:59 11:59 Weight 218 lb Constitutional Constitutional: no acute distress *Routine HEENT Exam Head: Present normocephalic Eye: Present EOMI and PERRL ENT: Present mucous membranes moist *Routine Neck Exam Neck: Present supple; Absent lymphadenopathy *Routine Respiratory Exam Respiratory: Present CTA bilaterally *Routine Cardiovascular Exam Cardiovascular: Present RRR *Routine Abdominal Exam Abdominal: Present soft and normoactive bowel sounds; Absent tenderness *Routine Rectal Exam Rectal:: deferred *Routine Genitalia Exam Genitalia:: deferred *Routine Extremities Exam Extremities: Absent cyanosis, clubbing or edema *Routine Skin Exam Skin: Present warm; Absent rash *Routine Neurological Exam Neurological: Present alert and oriented X3 Meds Home Medications and Allergies Home Medications ?Medication ?Instructions ?Recorded ?Confirmed ?Type docusate sodium 100 mg capsule 100 mg PO BID #60 caps 07/19/25 08/07/25 Rx (Colace) vits no.126-ferrous fum tab PO .daily 07/19/25 08/07/25 History 28 mg iron-folic acid 800 mcg tablet (Classic ) ibuprofen 800 mg tablet 800 mg PO Q8H PRN pain 08/07/25 08/07/25 History lamotrigine 25 mg tablet 25 mg PO BID 08/07/25 08/07/25 History sertraline 50 mg tablet 50 mg PO QPM 08/07/25 08/07/25 History New Prescriptions to Start Prescriptions: Allergies Allergy/AdvReac Type Severity Reaction Status Date / Time From TORADOL Allergy Mild I-RASH Uncoded 08/07/25 09:45 Hospital Course Hospital Course Hospital Course: She was admitted to labor and delivery for induction of labor. She signed herself out AMA. Apparently she was angry because the nurses told her she was going to have a social work supervisor consult through the hospital as a result of her previous alcohol abuse early in and the fact that she had minimal care. She initially signed herself out at around 1:15 in the morning and then returned and signed herself out again about 6:15 in the morning of August 09, 2025. She was verbally abusive to the nursing staff prior to her signing out AMA. The nursing staff was quite traumatized by this. They also feared for their safety and had the police escort the patient back into the labor and delivery unit to retrieve her belongings. I initially came in to see the patient early in the morning but she had already left AGAINST MEDICAL ADVICE by the time I got to the hospital. Our chief knowledge officer Francisca spoke to the patient's mother on the phone and the patient was seen in [facility] and then transferred to . [facility] was initially consulted but they refused to accept the patient. The patient's mother said that Caitlin was angry because of the social work supervisor consult. Results Data Completed and Pending Labs on day of discharge: Labs from last 24 hours 08/09/25 08/09/25 01:08 01:00 WBC 13.1 H RBC 3.27 L Hgb 10.6 L Hct 30.2 L MCV 92.4 MCH 32.4 H MCHC 35.1 RDW 13.7 Plt Count 334 MPV 12.2 H Neut % (Auto) 70.9 Lymph % (Auto) 17.0 Yancey % (Auto) 8.3 Eos % (Auto) 2.5 Baso % (Auto) 0.3 Neut # (Auto) 9.3 H Lymph # (Auto) 2.2 Yancey # (Auto) 1.1 H Eos # (Auto) 0.3 Baso # (Auto) 0.0 Sodium 134 L Potassium 3.9 Chloride 110 H Carbon Dioxide 17 L Anion Gap 10.9 BUN 11 Creatinine 0.50 L Estimated Creat Clear 233 Estimated GFR 137 Est GFR ( Amer) 165 Glucose 91 Calcium 9.5 Urine Protein Negative RPR w/Rflx to Titer Weak reactive A Blood Type O Positive Antibody Screen Negative DS: Diagnosis Discharge Diagnosis (1) History of ETOH abuse: Status: Acute Code(s): F10.11 - Alcohol abuse, in remission (2) Insufficient care in third trimester: Status: Acute Code(s): O09.33 - Supervision of with insufficient care, third trimester (3) Term : Status: Acute Code(s): Z34.90 - Encounter for supervision of normal , unspecified, unspecified trimester (4) Left against medical advice: Status: Acute Code(s): Z53.29 - Procedure and treatment not carried out because of patient's decision for other reasons Discharge Plan Disposition Patient Disposition: Left Against Medical Advice Condition: Good Patient Discharge Instructions Print Language: Swedish Providers Admit Provider: Jamal Preston Attending Provider: Jamal Preston
--- OUTSIDE RECORDS SUMMARY | 2025-08-09 17:15 | XMS_ITS | Encounter Summary ---
Author Organization Healthcare Address [address] [place] [address] Care Team Providers Care Carpenter Apprentice Name Role Phone Pcp, No Primary Care Provider Felecia Lloyd Unavailable Unavailable Reason for Visit * Auth/Cert (Routine) Specialty Diagnoses / Procedures Referred By Gee mendoza Referred To Contact Diagnoses Normal labor Redd Finn, DO [address] [address] Phone: tel: fax: [facility] Labor and Delivery [address] [place] [phone] Phone: tel: fax: Referral ID Status Reason Start Date Expiration Date Visits Re quested Visits Authorized [id number] 1 1 Encounter Details Date Type Department Care Team ([facility] Contact Info) Description 08/09/2025 5:15 PM EST Anesthesia Event [facility] Labor and Delivery [address] [place] [address] Redd Camejo MD [address] [place], [place] [phone] Patricia Roland MD [address] [place] [address] Anesthesia Record Procedure Summary Procedure Name Responsible Anesthesiologist Anesthesia Start Time Anesthesia Stop Time Labor Analgesia Redd Camejo MD 08/09/25 1715 Events Date Time Event Comment 08/09/2025 1715 An Start The patient was reevaluated immediately before sedation and remains eligible for anesthesia plan. 1731 Epidural Placed 2145 Face Time Patient resting comfortably in bed 2146 Sensory Block Assessment Rig ht Sensory Level: T6-T10 Left Sensory Level: T10-T12 Patient positioned L lateral 08/10/2025 0216 Face Time Patient assesse d for epidural function and satisfaction. Patient was found to be resting comfortably in bed with family at bedside. Patient denies any pain, discomfort, or needs at this time 0447 Face Time Pt resting comf ortably. 0815 Face Time Pt comfortable, level T8 bilateral Meds Name Total fentaNYL 2 mcg/mL + bupivacaine 1 mg/mL epidural 100 mL PCEA 0 mcg fentanyl + bupivacaine clinician bolus d ose 1-5 mL 13 mL * Agents No agents on file. * Blood No blood administrations on file. Lines, Drains, and Airways Type Details Placement Removal Peripheral IV Placement Date: 07/24 03/17; Placement Time: 0900; Existing LDA Placed by: Outside Facility; Catheter Size: 20 G; Orientation: Left; Location: Forearm 08/09/25 0900 by Preston Guerra, RN Peripheral IV Placement Date: 07/24 03/17; Placement Time: 1130; Catheter Size: 18 G; Orientation: Right; Location: Forearm; Site Prep: Alcohol; Technique: Anatomical landmarks; Insertion Attempts: 1; Patient Tolerance: Tolerated well 08/09/25 1130 by Preston Guerra, RN Epidural Placement Date: 07/24 03/17; Placement Time: 17308/09/25 173 by Preston Guerra RN Urethral Catheter Placement Date: 07/24 03/17; Placement Time: 1900 (present when RN came on shift) 08/09/25 1900 by Daina Johnson RN documented in this encounter Social History Tobacco Use Types Packs/Day Years [...] drink first t paul in 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 Wish to be (Past 1 Month) No 025 3:04 PM Preston Gómez RN 2. Non-Specific Active Suici lizet Thoughts (Past 1 Month) No 08/09/2025 3:04 PM EST Everett Guerra RN 6. Suicidal Behavior (Lifetime) No 3:04 PM EST Preston Guerra RN documented as of this encounter Mental Status * Question Answer Entry Date Author Precautions None 08/09/2025 4:00 PM EST Preston Hoskins RN documented in this encounter Miscellaneous Notes * Anesthesia Procedure Notes - Patricia Roland MD - 08/09/2025 5:45 PM EST Associated Order(s): DPE Block DPE Block Patient location during procedure: OB Reason for block: labor analgesia Staffing Performed: Anesthesiologist Anesthesiologist: Annalisa Contreras MD Resident: Patricia Roland MD Preanesthetic Checklist Completed: patient identified, IV checked, risks and benefits discussed, surgical consent, monitorsand equipment checked, pre-op evaluation and timeout performed DPE Block Patient position: sitting Prep: ChloraPrep and site prepped and draped Patient monitoring: continuous pulse ox Approach: midline Spinal Needle Needle type: pencil-tip Needle gauge: 25 G Epidural Needle Needle type: Tuohy Needle gauge: 17 G Needle length: 3.5 in Needle insertion depth (cm): 5 Catheter Catheter type: side hole Catheter size: 19 G Catheter at skin depth (cm): 10 Additional Notes DPE + CSF Cosigned by Annalisa Contreras MD at 08/09/2025 6:43 PM EST Associated attestation - Annalisa Contreras MD - 08/09/2025 6:43 PM EST I was present during all critical and willett portions of the procedure(s) and immediately available [facility] the entire duration. See resident note for details. * Anesthesia Preprocedure Evaluation - Patricia Roland MD - 08/09/2025 5:00 PM EST Images from the original note were not included. Patient: Caitlin Goldberg [facility] Department of Anesthesiology Perioperative, Critical Care, and Pain Medicine [facility] Caitlin Goldberg is a 40 y.o. female, , at 39w3d. She presents to L&D in labor. The patient's has been uncomplicated. The patient reports past medical history significantfor AUD (last use end of March/beginning of April; hx of withdrawal seizures), ALBERT (marijuana, heroin, cocaine; last use 2018), schizophrenia (not on meds), current smoker . Denies history of anesthesia complications. No prior back surgeries or use of blood thinners. She has no issues receiving blood products if needed. She has had 3 prior epidurals and would like one for this delivery as well. Risks and benefits of the anesthesia were discussed. All questions answered to patient's satisfaction. Consent obtained and placed in the patients chart. Ht Readings from Last 1 Encounters: 08/09/25 1.854 m (6' 1 ) Wt Readings from Last 1 Encounters: 08/09/25 102 kg (225 lb) Body mass index is 29.69 kg/m??. ALLERGIES Allergies[1] METs: >4 Anticoagulation: Denies Pertinent Labs Lab Results Component Value Date WBC 14.04 (H) 08/09/2025 HGB 10.5 (L) 08/09/2025 HCT 29.8 (L) 08/09/2025 PLT 320 08/09/2025 NA 139 08/09/2025 K 3.9 08/09/2025 CL 109 (H) 08/09/2025 CREATININE 0.42 (L) 08/09/2025 BUN 8 08/09/2025 CO2 18 (L) 08/09/2025 INR 1.3 (H) 01/01/2019 Blood type: Pending Valid type and screen: Pending Other Testing EKG No results found for this or any previous visit (from the past 4464 hours). 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 Obstetric History section: .obj. ALLERGIES Allergies[2] NPO STATUS Past Medical History[3] AIRWAY HISTORY Airway Detailed Review Displaying the 20 most recent records No records found. MEDICATIONS Outpatient Current Outpatient Medications Medication Instructions famotidine (PEPCID) 20 mg, Oral, 2 times daily nitrofurantoin (macrocrystal-monohydrate) (MACROBID) 100 mg, Oral, 2 times daily Vit-Fe Fumarate-FA ( Vitamins) 28-0.8 MG tablet 1 tablet, Oral, Daily Scheduled Current Scheduled Medications[4] PRNs Current PRN Medications[5] SURGICAL HX: Surgical History[6] SOCIAL HX: Social History[7] OBJECTIVE DATA LABS Lab Results Component Value Date WBC 14.04 (H) 08/09/2025 HGB 10.5 (L) 08/09/2025 HCT 29.8 (L) 08/09/2025 MCV 93 08/09/2025 PLT 320 08/09/2025 Lab Results Component Value Date CALCIUM 8.9 08/09/2025 BUN 8 08/09/2025 CREATININE 0.42 (L) 08/09/2025 BCR 19 08/09/2025 NA 139 08/09/2025 K 3.9 08/09/2025 CL 109 (H) 08/09/2025 CO2 18 (L) 08/09/2025 CA 8.4 (L) 01/01/2019 Type and Screen ABO/Rh Date Value Ref Range Status 08/09/2025 O Positive Final No results found for: HGBA1C Lab Results Component Value Date GLUCOSE 78 08/09/2025 ABG Lab Results Component Value Date LACTATE 1.0 01/01/2019 Lab Results Component Value Date LACTATE 1.0 01/01/2019 ECHO No echocardiogram results found for the past 12 months PFTs No results found for: SVU8ZJL , EDJ8SLXG , RIZ2AZF , FVCPRED BP Readings from Last 5 Encounters: 08/09/25 111/63 06/02/25 127/77 05/17/25 123/81 03/19/24 119/70 02/03/23 121/83 Physical Exam Airway Mallampati: III Mouth opening: normal TM distance: >3 FB Cardiovascular Dental (+) edentulous Pulmonary Neurological Oriented: normal to time, normal to place and normal to person and oriented to person, place and time Skin Musculoskeletal Extremities Anesthesia Plan ASA 3 Plan was reviewed with: attending Anesthesia technique(s) discussed with the patient/family: CSE, DPE, epidural, general, regional and spinal Anesthesia plan agreed upon was: DPE Anesthetic plan and risks discussed with patient. Anesthesia Evaluation [1] Allergies Allergen Reactions Toradol [Ketorolac Tromethamine] Hives [2] Allergies Allergen Reactions Toradol [Ketorolac Tromethamine] Hives [3] Past Medical History: Diagnosis Date Generalized anxiety disorder Hypoglycemia PTSD (post-traumatic stress disorder) Schizophrenia [4] azithromycin, 500 mg, Intravenous, Once in OR ceFAZolin, 2 g, Intravenous, Once in OR multivitamin , 1 tablet, Oral, Daily nicotine, 1 patch, Transdermal, Daily sodium citrate-citric acid, 30 mL, Oral, Once in OR [5] PRN medications: acetaminophen, calcium carbonate, miSOPROStol, terbutaline [6] Past Surgical History: Procedure Laterality Date TONSILLECTOMY W/ ADENOIDECTOMY [7] Social History Tobacco Use Smoking status: Every Day Current packs/day: 1.00 Types: Cigarettes Smokeless tobacco: Never Vaping Use Vaping status: Never Used Substance Use Topics Alcohol use: Not Currently Comment: no alcohol for 9 weeks Drug use: Not Currently Types: Methamphetamines, Heroin, Fentanyl, Marijuana Cosigned by Annalisa Contreras MD at 08/09/2025 6:43 PM EST Associated attestation - Annalisa Contreras MD - 08/09/2025 6:43 PM EST I agree with the findings and care plan documented in the preprocedure evaluation note. documented in this encounter Plan of Treatment Not on file documented as of this encounter Procedures Procedure Name Priority Date/Time Associated Diagnosis Comments ANESTHESIA DPE BLOCK 08/09/2025 5:45 PM EST documented in this encounter Results * DPE Block (08/09/2025 5:45 PM EST) Narrative Annalisa Contreras MD - 08/09/2025 5:45 PM EST Annalisa Contreras MD 08/09/2025 6:43 PM DPE Block Patient location during procedure: OB Reason for block: labor analgesia Staffing Performed: Anesthesiologist Anesthesiologist: Annalisa Contreras MD Resident: Patricia Roland MD Preanesthetic Checklist Completed: patient identified, IV checked, risks and benefits discussed, surgical consent, monitors and equipment checked, pre-op evaluation and timeout performed DPE Block Patient position: sitting Prep: ChloraPrep and site prepped and draped Patient monitoring: continuous pulse ox Approach: midline Spinal Needle Needle type: pencil-tip Needle gauge: 25 G Epidural Needle Needle type: Tuohy Needle gauge: 17 G Needle length: 3.5 in Needle insertion depth (cm): 5 Catheter Catheter type: side hole Catheter size: 19 G Catheter at skin depth (cm): 10 Additional Notes DPE + CSF us Annalisa Contreras MD ANESTHESIA ORDERABLES Final Re sult documented in this encounter Visit Diagnoses Not on filedocumented in this encounter Administered Medications Active Administered Medications - up to 3 most recent administrations Medication Order MAR Action Action Date Dose Rate Site fentanyl + bupivacaine clinician bolus dose 1-5 [...] EST New Bag 08/09/2025 9:56 PM EST documented in this encounter Additional Health Concerns [...] documented as of this encounter Care Teams Carpenter Apprentice Relationship Specialty Start Date End Date Pcp, Shruthi [address] [place] [address] PCP - General Family Medicine 02/01/23 Felecia Monreal [facility] Health Worker 05/17/25 documented as of this encounter
--- OUTSIDE RECORDS SUMMARY | 2025-08-09 23:59 | XMS_ITS | Encounter Summary ---
Author Organization Healthcare Address [address] [place] [id number] Care Team Providers Care Adult Basic Education Manager Name Role Phone Pcp, No Primary Care Provider Unavailabl e Felecia Monreal Unavailable Unavailable Reason for Visit * Auth/Cert (Routine) Specialty Diagnoses / Procedures Referred By Gee mendoza Referred To Contact Diagnoses Normal labor Redd Finn, DO [address] [address] Phone: tel: fax: [facility] Labor and Delivery [address] [place] [phone] Phone: tel: fax: Referral ID Status Reason Start Date Expiration Date Visits Re quested Visits Authorized [id number] 1 1 Encounter Details Date Type Department Care Team (Late st Contact Info) Description 08/09/2025 11:59 PM EST Anesthesia Event [facility] Labor and Delivery [address] [place] [address] Patricia Roland MD [address] [place] [address] Anesthesia Record Procedure Summary Procedure Name Responsible Anesthesiologist Anesthesia Start Time Anesthesia Stop Time Labor Consult Events No events on file. Meds * Agents No agents on file. * Blood No blood administrations on file. Lines, Drains, and Airways No LDAs on file. 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 Wish to be (Past 1 Month) No 025 3:04 PM Preston Gómez RN 2. Non-Specific Active Suici lizet Thoughts (Past 1 Month) No 08/09/2025 3:04 PM Everett Gómez RN 6. Suicidal Behavior (Lifetime) No 3:04 PM Preston Gómez RN documented as of this encounter Mental Status * Question Answer Entry Date Author Precautions None 08/09/2025 11:44 PM Daina Schumacher RN documented in this encounter Miscellaneous Notes * Anesthesia IP Labor Consult - Patricia Roland MD - 08/09/2025 12:04 PM EST Images from the original note were not included. Patient: Caitlin Vazquez Ashlyn [facility] Department of Anesthesiology Perioperative, Critical Care, and Pain Medicine [facility] Caitlin Goldberg is a 40 y.o. female, [...] chart. Ht Readings from Last 1 Encounters: 05/17/25 1.854 m (6' 1 ) Wt Readings from Last 1 Encounters: 06/02/25 88.3 kg (194 lb 10.7 oz) There is no height or weight on file to calculate BMI. ALLERGIES Allergies[1] METs: >4 Anticoagulation: Denies Pertinent Labs Lab Results Component Value Date WBC 13.55 (H) 03/19/2024 HGB 14.6 03/19/2024 HCT 40.0 03/19/2024 PLT 328 03/19/2024 NA 136 03/19/2024 K 3.0 (L) 03/19/2024 CL 100 03/19/2024 CREATININE 0.56 (L) 03/19/2024 BUN 9 03/19/2024 CO2 22 03/19/2024 INR 1.3 (H) 01/01/2019 Blood type: Pending Valid type and screen: Pending Other Testing EKG No results found for this or any previous visit (from the past 4464 hours). 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 Obstetric History section: [...] LABS Lab Results Component Value Date WBC 13.55 (H) 03/19/2024 HGB 14.6 03/19/2024 HCT 40.0 03/19/2024 MCV 94 03/19/2024 PLT 328 03/19/2024 Lab Results Component Value Date CALCIUM 9.6 03/19/2024 BUN 9 03/19/2024 CREATININE 0.56 (L) 03/19/2024 BCR 16 03/19/2024 NA 136 03/19/2024 K 3.0 (L) 03/19/2024 CL 100 03/19/2024 CO2 22 03/19/2024 CA 8.4 (L) 01/01/2019 Type and Screen No results found for: ABO No results found for: HGBA1C No results found for: PGLU , GLUCOSE ABG Lab Results Component Value Date LACTATE 1.0 01/01/2019 Lab Results Component Value Date LACTATE 1.0 01/01/2019 ECHO No echocardiogram results found for the past 12 months PFTs No results found for: OXA5TEN , ZNO5MNWC , RZS0VYT , FVCPRED BP Readings from Last 5 Encounters: 06/02/25 127/77 05/17/25 123/81 03/19/24 119/70 02/03/23 [...] CSE, DPE, epidural, general, regional and spinal Anesthetic plan and risks discussed with patient. Anesthesia Evaluation [1] Allergies Allergen Reactions Toradol [Ketorolac Tromethamine] Hives [2] Allergies Allergen Reactions Toradol [Ketorolac Tromethamine] Hives [3] Past Medical History: Diagnosis Date Generalized anxiety disorder Hypoglycemia PTSD (post-traumatic stress disorder) Schizophrenia [4] azithromycin, 500 mg, Intravenous, Once in OR ceFAZolin, 2 g, Intravenous, Once in OR multivitamin , 1 tablet, Oral, Daily sodium citrate-citric acid, 30 mL, Oral, Once in OR [5] PRN medications: acetaminophen, calcium carbonate, terbutaline [6] Past Surgical History: Procedure Laterality Date TONSILLECTOMY W/ ADENOIDECTOMY [7] Social History Tobacco Use Smoking status: Every Day Current packs/day: 1.00 Types: Cigarettes Smokeless tobacco: Never Vaping Use Vaping status: Never Used Substance Use Topics Alcohol use: Not Currently Comment: no alcohol for 9 weeks Drug use: Not Currently Types: Methamphetamines, Heroin, Fentanyl, Marijuana documented in this encounter Plan of Treatment [...] documented as of this encounter Care Teams Adult Basic Education Manager Relationship Specialty Start Date End Date Pcp, No [address] [place] [address] PCP - General Family Medicine 02/01/23 Felecia Monreal [facility] Health Worker 05/17/25 documented as of this encounter
--- OUTSIDE RECORDS SUMMARY | 2025-08-10 09:07 | XMS_ITS ---
Author Organization [facility] Address [address] [place] [address] Care Team Providers Care Vascular Physician Name Role Phone Pcp, No Primary Care Provider Felecia Lloyd Unavailable Unavailable Community Health Worker Status:Active (Active) Program category:Maternal/Women's Health Start date:05/17/2025 Enrollment date:05/17/2025 Related social drivers of health:Intimate Partner Violence, Food Insecurity, Transportation Needs, Housing Stability, Utilities Overview This episode type is for outpatient Community Health Workers enrolling patients in their program. Case Team Name Relationship Phone Felecia Monreal(Responsible Staff) Community Ysisel odilia Health Worker Continued Care and Services Coordination
--- OUTSIDE RECORDS SUMMARY | 2025-08-10 09:07 | XMS_ITS | Encounter Summary ---
Author Organization Healthcare Address [address] [place] [address] Care Team Providers Care Oracle Webcenter Consultant Name Role Phone Pcp, No Primary Care Provider Unavailabl e Felecia Monreal Unavailable Unavailable Encounter Details Date Type Department Care Team ([facility] Contact Info) Description 07/06/2025 Telephone Medical Office Building Obstetrics and Gynecology [address], [address] [place] [address] Cindy Walden MD [address] [place] [address] Social History Tobacco Use Types [...] drink first t paul in the morning (EYE-STRIKER OFF) to steady your nerves or to get [...] morning apt. Please call. Best contact number: [phone] (mobile) Optimal time of day to reach caller: ANYTIME Additional comments/information from caller: None Note: Please do not reply to this message. Follow-up communication and further actions as a result of this message need to be communicated with the patient directly, if the patient is not active onMyChart. If the patient is active on MyChart, they will receive notification of the communication/outcome via FIZZA. documented in this encounter Plan of Treatment [...] documented as of this encounter Care Teams [employer] Consultant Relationship Specialty Start Date End Date Pcp, [place] [address] PCP - General Family Medicine 02/01/23 Felecia Monreal [facility] Health Worker 05/17/25 documented as of this encounter
--- OUTSIDE RECORDS SUMMARY | 2025-08-10 09:07 | XMS_ITS | Encounter Summary ---
Author Organization Healthcare Address [address] [place] [address] Care Team Providers Care Tester Food Products Name Role Phone Pcp, No Primary Care Provider Unavailabl e Felecia Monreal Unavailable Unavailable Encounter Details Date Type Department Care Team ([facility] Contact Info) Description 05/22/2025 Results Follow-Up Medical Office Building Obstetrics and Gynecology [address], [address] [place] [address] Emerald Berger, MANAGER REGISTRATION, DNP [address] [facility] [address] [place] [address] Social History Tobacco Use Types [...] drink first t paul in the morning (EYE-FAMILY SERVICES COORDINATOR) to steady your nerves or to [...] documented as of this encounter Care Teams Tester Food Products Relationship Specialty Start Date End Date Pcp, [place] [address] PCP - General Family Medicine 02/01/23 Felecia Monreal [facility] Health Worker 05/17/25 documented as of this encounter
--- OUTSIDE RECORDS SUMMARY | 2025-08-10 09:07 | XMS_ITS | Clinical Summary ---
Author Organization Healthcare Address [address] [place] [address] Care Team Providers Care Highballer Name Role Phone Pcp, No Primary Care Provider Felecia Lloyd Unavailable Unavailable Allergies Active Allergy Reactions Criticality Noted Date Comments Ketorolac Tromethamine Hives Medium 02/01/2023 Medications * This document contains information received from the source organization and may not represent a complete record from that organization. Vit-Fe Fumarate-FA ( Vitamins) 28-0.8 MG tabletIndicatio ns:Encounter for supervision of normal , antepartum, unspecified Take 1 tablet by mouth daily. 90 tablet 3 05/17/20 25 026 Suspended nitrofurantoin, macrocrystal-mo nohydrate, (Macrobid) 100 MG capsuleIndicati ons:Urinary tract infection in mother during third trimester of Take 1 capsule by mouth 2 times a day. 14 capsule 05/22/20 25 Suspended Additional Information Patient not taking.Reported on 06/02/2025 famotidine (Pepcid) 20 MG tabletIndicatio ns:Heartburn during in third trimester Take 1 tablet by mouth 2 times a day. 90 tablet 3 06/02/20 25 Suspended Active Problems Problem Noted Date Diagnosed Date Normal labor 08/09/2025 Acute cholecystitis 02/01/2023 Estimated Date of Delivery Comme nts Yes 08/13/2025 Based on Ultraso und Encounters * This document contains information received from the source organization and may not represent a complete record from that organization. Date Type Department Care Team Description 08/09/2025 11:59 PM EST Anesthesia Event [facility] [address] [place] [address] Patricia Roland MD 08/09/2025 5:15 PM EST Anesthesia Event [facility] Delivery [address] [place] [address] Redd Camejo MD Patil, Smruti D, MD 08/09/2025 9:50 AM EST - Present Hospital Encounter [facility] Delivery [address] [place] [address] Redd Finn DO 07/06/2025 Telephone Medical Office Building Obstetrics and Gynecology [address], [address] [place] [address] Cindy Walden MD 06/02/2025 2:30 PM EDT Routine Medical Office Building Obstetrics and Gynecology [address], [address] [place] [address] Emerald Berger APRN, MIRA Insufficient care in third trimester (Primary Dx); Alcoholism (CMS/HCC); Schizophrenia, unspecified type (CMS/HCC); Substance use disorder; Heartburn during in third trimester; Urinary tract infection in mother during third trimester of 06/02/2025 Travel 05/22/2025 Results Follow-Up Medical Office Building Obstetrics and Gynecology [address], [address] [place] [address] Emerald Berger APRN, DNP 05/18/2025 Results Follow-Up Medical Office Building Obstetrics and Gynecology [address], [address] [place] [address] Emerald Berger APRN, DNP 05/17/2025 10:46 AM EDT - 05/17/2025 11:59 PM EDT Hospital Encounter Medical Office Building Obstetrics and Gynecology [address], [address] [place] [address] Encounter for supervision of normal , antepartum, unspecified ; Substance use disorder; AMA (advanced maternal age) multigravida 35+, unspecified trimester; Late care affecting , antepartum Discharge Disposition: Home or Self Care 05/17/2025 9:15 AM EDT Initial Medical Office Building Obstetrics and Gynecology [address], [address] [place] [address] Emerald Berger APRN, MIRA GA: [id number] 05/17/2025 Patient Outreach Medical Office Building Obstetrics and Gynecology [address], [address] [place] [address] [facility]; Other ([facility] Initial Encounter) 05/17/2025 Patient Outreach Medical Office Building Obstetrics and Gynecology [address], [address] [place] [address] [facility]; Other ( Community Health Work Program [...] drink first t paul in the morning (EYE-STOCK BROKER) to steady your nerves or to get [...] Mass Index 29.69 08/09/2025 1:10 PM EST Plan of Treatment Health Maintenance Due Date Last Done Comments [facility]-Depression Screening 1985 [facility]-/Child/Adol SDOH Screenings 1985 [facility]-Varicella Vaccines (1 of 2 - 13+ 2-dose series) 1998 [facility]- SDOH Screenings 2003 [facility]-Adult SDOH Screenings 2003 [facility]-Pneumococcal Vaccine: Pediatrics (0 to 5 Years) and At-Risk Patients (6 to 49 Years) (1 of 2 - PCV) 2004 [facility]-DTaP,Tdap,and Td Vaccines (1 - Tdap) 07/31/2004 2004 [facility]-Pap Smear 2006 [facility]-Cervical Cancer Screening 2015 [facility]-HPV/Cotest 2015 [facility]-JARST-77 Vaccine ( - season) 2025 [facility]-Influenza Vaccine (#1) 2025 [facility]-Zoster Vaccines (1 of 2) 2035 [facility]-Hepatitis B Vaccines Completed 998, 06/08/1997, 05/08/1997 [facility]-Hepatitis A Vaccines Aged Out 07/07/2018 No longer eligible based on patient's age to complete this topic [facility]-Obesity Intervention Completed 06/02/2025, 04/25 [facility]-HIV Screening Completed 08/09/2025, 03/19/2024 [facility]-Hepatitis C Screening Completed 2024, 03/19/2024, 02/02/2023, Additional history exists HPV Vaccines (No Doses Required) Completed [facility]-HIB Vaccines Aged Out No longer e ligible based on patient's age to complete this topic [facility]-IPV Vaccines Aged Out No longer e ligible based on patient's age to complete this topic [facility]-RSV Vaccine: 60+ Years or (No Doses Required) Completed [facility]-Rotavirus Vaccines Aged Out No lo nger eligible based on patient's age to complete this topic Procedures * The patient is currently admitted. The information in this section might not be complete until the patient is discharged. Procedure Name Priority Date/Time Associated Diagnosis Comments TREPONEMA PALLIDUM (SYPHILIS) ANTIBODIES WITH REFLEX TO RPR AND RPR TITER (THOSE WITH NO KNOWN SYPHILIS) STAT 08/10/2025 4:18 AM EST ANESTHESIA DPE BLOCK 08/09/2025 5:45 PM EST DRUG ABUSE SCREEN, URINE Routine 08/09/2025 1:06 PM EST RPR TITER Routine 08/09/2025 11:52 AM EST RPR SCREENING WITH REFLEX TO TITER (REFLEX ONLY) Routine 08/09/2025 11:52 AM EST HIV 1/2 ANTIBODY/ANTIGEN SCREEN WITH REFLEX TO HIV I/II DIFFERENTIATION Routine 08/09/2025 11:52 AM EST HEPATITIS B SURFACE ANTIGEN Routine 08/09/2025 11:52 AM EST RUBELLA ANTIBODY IGG Routine 08/09/2025 11:52 AM EST HIV 1/2 ANTIBODY/ANTIGEN SCREEN W/REFLEX TO HIV 1/2 ANTIBODY DIFFERENTIATION Routine 08/09/2025 11:52 AM EST HEPATITIS C ANTIBODY W/REFLEX TO HCV QUANT PCR Routine 08/09/2025 11:52 AM EST HEPATITIS B SURFACE ANTIGEN Routine 08/09/2025 11:52 AM EST COMPREHENSIVE METABOLIC PANEL, PLASMA Routine 08/09/2025 11:52 AM EST TREPONEMA PALLIDUM (SYPHILIS) ANTIBODIES WITH REFLEX TO RPR AND RPR TITER (THOSE WITH NO KNOWN SYPHILIS) Routine 08/09/2025 11:52 AM EST CBC WITH AUTO DIFFERENTIAL Routine 08/09/2025 11:52 AM EST TYPE AND SCREEN Routine 08/09/2025 11:52 AM EST NEISSERIA GONORRHEA DNA BY PCR Routine 05/17/2025 [...] unspecified trimester Late care affecting , antepartum from Last 3 Months Results * (ABNORMAL) Treponema Pallidum (Syphilis) Antibodies with Reflex to RPR and RPR Titer (Those with NOknown Syphilis) (08/10/2025 4:18 AM EST) Only the most recent of2 resultswithin the time period is included. Pathologist [facility] Syphilis Antibody (IgG+IgM) Reactive( A) Nonreactive 08/10/2025 5:31 AM EST [facility] Comment:Result suggests infe ction with Treponema [...] DO LAB BLOOD ORDERABLES Final Re sult [facility] [address] [place] [address] * DPE Block (08/09/2025 5:45 PM EST) [...] (cm): 10 Additional Notes DPE + CSF Annalisa Contreras MD ANESTHESIA ORDERABLES Final Re sult * Drug Abuse Screen Urine (08/09/2025 1:06 PM EST) Amphetamine Screen Urine Negative Cutoff: 500 ng/mL 08/09/2025 10:49 PM EST [facility] Benzodiazepines Screen Urine Negative Cutoff: 200 ng/mL 08/09/2025 10:49 PM EST [facility] Cannabinoid Screen Urine Negative Cutoff: 50 ng/mL 08/09/2025 10:49 PM EST [facility] Cocaine Screen Urine Negative Cutoff: 300 ng/mL 08/09/2025 10:49 PM EST [facility] Barbiturate Screen Urine Negative Cutoff: 200 ng/mL 08/09/2025 10:49 PM EST [facility] Opiate Screen Urine Negative Cutoff: 300 ng/mL 08/09/2025 10:49 PM EST [facility] Methadone Screen Urine Negative Cutoff: 300 ng/mL 08/09/2025 10:49 PM EST [facility] Buprenorphine Screen Urine Negative Cutoff: 10 ng/mL 08/09/2025 10:49 PM EST [facility] Fentanyl Screen Urine Negative Cutoff: 1 ng/mL 08/09/2025 10:49 PM EST [facility] Oxycodone Screen Urine Negative Cutoff: 100 ng/mL 08/09/2025 10:49 PM EST [facility] Urine Urine specimen obtained by clean catch procedure / Unknown Non-blood Collection / Unknown 08/09/2025 1:06 PM EST 08/09/2025 1:21 PM EST Result Nereida Finn DO LAB URINE ORDERABLES Final Re sult Performing Organization Address City/[facility]/ZIP Co de Phone Number [facility] [address] [place] [address] * Hepatitis B Surface Antigen (08/09/2025 11:52 AM EST) Hepatitis B Surf Antigen Negative Negative 08/09/2025 2:20 PM EST [facility] Blood Venous blood specimen / Unknown Venipuncture / Unknown 08/09/2025 11:52 AM EST 08/09/2025 12:19 PM EST Result Nereida Finn DO LAB BLOOD ORDERABLES Final Re sult Performing Organization Address City/[facility]/ZIP Co de Phone Number [facility] [address] [place] [address] * (ABNORMAL) RPR Screening with Reflex to Titer (08/09/2025 11:52 AM EST) Rapid Plasma Reagin Reactive( A) Non Reactive 08/10/2025 1:58 AM EST [facility] Blood Venous blood specimen / Unknown Venipuncture / Unknown 08/09/2025 11:52 AM EST 08/09/2025 12:19 PM EST us Redd T Finn DO LAB BLOOD ORDERABLES Final Re sult Performing Organization Address [facility] de Phone Number [facility] [address] [place] [address] * HIV 1 & 2 Antibody/Antigen Screen (08/09/2025 11:52 AM EST) HIV 1 & 2 Antibody/Antigen Screen Non Reactive Non Reactive 08/09/2025 1:56 PM EST [facility] Comment:Screening for HIV 1 & 2 antibodies, and P24 antigen is NONREACTIVE. No confirmatory testing is required. Blood Venous blood specimen / Unknown Venipuncture / Unknown 08/09/2025 11:52 AM EST 08/09/2025 12:12 PM EST us Redd Finn DO LAB BLOOD ORDERABLES Final Re sult Performing Organization Address [facility] de Phone Number [facility] [address] [place] [address] * (ABNORMAL) RPR Titer (08/09/2025 11:52 AM EST) Pathologist [facility] RPR Titer Pos 1:4(A) <1:1 08/10/2025 2:38 AM EST [facility] Blood Venous blood specimen / Unknown Venipuncture / Unknown 08/09/2025 11:52 AM EST 08/09/2025 12:19 PM EST us Redd Finn DO LAB BLOOD ORDERABLES Final Re sult Performing Organization Address [facility] de Phone Number [facility] [address] [place] [address] * Hepatitis C antibody (08/09/2025 11:52 AM EST) Pathologist [facility] Hepatitis C Antibody Negative Negative 08/09/2025 1:53 PM EST [facility] Blood Venous blood specimen / Unknown Venipuncture / Unknown 08/09/2025 11:52 AM EST 08/09/2025 12:12 PM EST us Redd Finn DO LAB BLOOD ORDERABLES Final Re sult Performing Organization Address [facility] Co de Phone Number [facility] [address] [place] [address] * (ABNORMAL) Rubella Antibody IgG (08/09/2025 11:52 AM EST) Rubella Antibody IgG Positive(A ) Negative 08/09/2025 3:02 PM EST [facility] Comment: Rubella IgG Result Interpretation: Negative: [...] ORDERABLES Final Re sult Performing Organization Address [facility] Co de Phone Number [facility] [address] [place] [address] * (ABNORMAL) CBC and differential (08/09/2025 11:52 AM EST) Pathologist [facility] WBC Count 14.04(H) 3.70 - 10.30 10*3/uL LAB HEMATOLOGY METHOD 08/09/2025 1:33 PM EST [facility] RBC Count 3.19(L) 3.90 - 5.20 10*6/uL LAB HEMATOLOGY METHOD 08/09/2025 1:33 PM EST [facility] HGB 10.5(L) 11.2 - 15.7 g/dL LAB HEMATOLOGY METHOD 08/09/2025 1:33 PM EST [facility] HCT 29.8(L) 34.0 - 45.0 % LAB HEMATOLOGY METHOD 08/09/2025 1:33 PM EST [facility] Platelet Count 320 155 - 369 10*3/uL LAB HEMATOLOGY METHOD 08/09/2025 1:33 PM EST [facility] MCV 93 79 - 98 fL LAB HEMATOLOGY METHOD 08/09/2025 1:33 PM EST [facility] MCH 32.9(H) 26.0 - 32.0 pg LAB HEMATOLOGY METHOD 08/09/2025 1:33 PM EST [facility] MCHC 35.2 30.7 - 35.5 g/dL LAB HEMATOLOGY METHOD 08/09/2025 1:33 PM [facility] RDW 14.1 11.5 - 14.5 % LAB HEMATOLOGY METHOD 08/09/2025 1:33 PM EST [facility] MPV 12.5 8.8 - 12.5 fL LAB HEMATOLOGY METHOD 08/09/2025 1:33 PM EST [facility] nRBC 0.0 <=0.0 per 100 WBCs LAB HEMATOLOGY METHOD 08/09/2025 1:33 PM EST [facility] Differential Type Automated LAB HEMATOLOGY METHOD 08/09/2025 1:33 PM [facility] Neutrophils % 71 % LAB HEMATOLOGY METHOD 08/09/2025 1:33 PM EST [facility] Lymphocytes % 17 % LAB HEMATOLOGY METHOD 08/09/2025 1:33 PM EST [facility] Monocytes % 9 % LAB HEMATOLOGY METHOD 08/09/2025 1:33 PM [facility] Eosinophils % 2 % LAB HEMATOLOGY METHOD 08/09/2025 1:33 PM [facility] Basophils % 0 % LAB HEMATOLOGY METHOD 08/09/2025 1:33 PM [facility] Immature Granulocytes % 1 % LAB HEMATOLOGY METHOD 08/09/2025 1:33 PM [facility] Neutrophils Absolute 10.02(H) 1.60 - 6.10 10*3/uL LAB HEMATOLOGY METHOD 08/09/2025 1:33 PM EST [facility] Lymphocytes Absolute 2.39 1.20 - 3.90 10*3/uL LAB HEMATOLOGY METHOD 08/09/2025 1:33 PM [facility] Monocytes Absolute 1.21(H) 0.30 - 0.90 10*3/uL LAB HEMATOLOGY METHOD 08/09/2025 1:33 PM EST [facility] Eosinophils Absolute 0.23 0.00 - 0.50 10*3/uL LAB HEMATOLOGY METHOD 08/09/2025 1:33 PM EST [facility] Basophils Absolute 0.04 0.00 - 0.10 10*3/uL LAB HEMATOLOGY METHOD 08/09/2025 1:33 PM EST [facility] Immature Granulocytes Absolute 0.15(H) 0.00 - 0.06 10*3/uL LAB HEMATOLOGY METHOD 08/09/2025 1:33 PM EST [facility] Blood Venous blood specimen / Unknown Venipuncture / Unknown 08/09/2025 11:52 AM EST 08/09/2025 12:12 PM EST Narrative [facility] - 08/09/2025 1:33 PM EST Therapeutic decision making should be based on absolute values, rather than percentages. Redd Finn LAB BLOOD ORDERABLES Final Re sult [facility] [address] [place] [address] * Type and Screen (08/09/2025 11:52 AM EST) ABO/Rh O Positive 08/09/2025 12:07 PM EST [facility] Antibody Screen Negative 08/09/2025 12:07 PM EST [facility] Specimen Expiration 08/12/2025 23:59 08/09/2025 12:07 PM EST [facility] Blood Venous blood specimen / Unknown Venipuncture / Unknown 08/09/2025 11:52 AM EST 08/09/2025 12:07 PM EST Redd Finn [facility] BLOOD BANK TEST ORDERABLE S Final Result Performing Organization Address City/[facility]/ZIP Co de Phone Number BLOOD BANK [address] [place] [address], * (ABNORMAL) Comprehensive metabolic panel (08/09/2025 11:52 AM EST) Glucose, Plasma 78 74 - 99 mg/dL 08/09/2025 1:46 PM EST [facility] BUN, Plasma 8 7 - 21 mg/dL 08/09/2025 1:46 PM EST [facility] Creatinine, Plasma 0.42(L) 0.60 - 1.10 mg/dL 08/09/2025 1:46 PM EST [facility] BUN/Creatinine Ratio 19 08/09/2025 1:46 PM EST [facility] Sodium, Plasma 139 136 - 145 mmol/L 08/09/2025 1:46 PM EST [facility] Potassium, Plasma 3.9 3.6 - 4.9 mmol/L 08/09/2025 1:46 PM EST [facility] Chloride, Plasma 109(H) 97 - 107 mmol/L 08/09/2025 1:46 PM EST [facility] CO2, Plasma 18(L) 22 - 29 mmol/L 08/09/2025 1:46 PM EST [facility] Anion Gap 12 6 - 16 mmol/L 08/09/2025 1:46 PM EST [facility] Total Calcium, Plasma 8.9 8.9 - 10.2 mg/dL 08/09/2025 1:46 PM EST [facility] Total Protein 6.2(L) 6.3 - 7.9 g/dL 08/09/2025 1:46 PM [facility] Albumin, Plasma 3.2(L) 3.5 - 5.2 g/dL 08/09/2025 1:46 PM [facility] AST, Plasma 23 10 - 35 U/L 08/09/2025 1:46 PM [facility] ALT, Plasma 25 10 - 35 U/L 08/09/2025 1:46 PM [facility] Alkaline Phosphatase, Plasma 273(H) 35 - 104 U/L 08/09/2025 1:46 PM [facility] Total Bilirubin, Plasma 0.6 0.2 - 1.1 mg/dL 08/09/2025 1:46 PM EST [facility] eGFRcr 127.0 mL/min/1.7 3m*2 08/09/2025 1:46 PM [facility] Comment:Reported eGFRcr in m L/min/1.73m2 is based the CKD-EPI 2020 equation that does not use a race coefficient. Blood Venous blood specimen / Unknown Venipuncture / Unknown 08/09/2025 11:52 AM EST 08/09/2025 12:12 PM EST us Redd Fnin DO LAB BLOOD ORDERABLES Final Re sult [facility] [address] [place] [address] * Chlamydia trachomatis DNA by PCR (05/17/2025 12:14 PM EDT) Chlamydia trachomatis DNA PCR Result Not Detected Not Detected 05/18/2025 4:20 PM EDT [facility] Urine Urine specimen / Unknown Non-blood Collection / Unknown 05/17/2025 12:14 PM EDT 05/17/2025 12:14 PM EDT Narrative [facility] - 05/18/2025 4:20 PM EDT This test is performed by the [employer] instrument for Real Time PCR C. trachomatis and N. gonorrhea. This test is FDA approved for use with endocervical, vaginal, and urine specimens. This test is used for clinical purposes. It should not be regarded as invesigational or for research. The [facility] Clinical Microbiology Laboratory is certified under the Clinical Laboratory Improvement Amendments of 1988 (CLIA-88) as qualified to perform high complexity clinical laboratory testing. Emerald Berger INSURANCE CLAIMS ADJUSTER, DNP LAB MICROBIOLOGY - GE NERAL ORDERABLES Final Result Performing Organization Address [facility] Co de Phone Number [facility] [address] [place] [address] * Neisseria gonorrhea DNA by PCR (05/17/2025 12:14 PM EDT) Neisseria gonorrhea DNA PCR Result Not Detected Not Detected. 05/18/2025 4:20 PM EDT [facility] Urine Urine specimen / Unknown Non-blood Collection / Unknown 05/17/2025 12:14 PM EDT 05/17/2025 12:14 PM EDT Narrative [facility] - 05/18/2025 4:20 PM EDT This test is performed by the [employer] m2000 instrument for Real Time PCR C. trachomatis and N. gonorrhea. This test is FDA approved for use with endocervical, vaginal, and urine specimens. This test is used for clinical purposes. It should not be regarded as invesigational or for research. [facility] is certified under the Clinical Laboratory Improvement Amendments of 1988 (CLIA-88) as qualified to perform high complexity clinical laboratory testing. Emerald Berger APRN, DNP LAB MICROBIOLOGY - NERFL ORDERABLES Final Result [facility] [address] [place] [address] * (ABNORMAL) Urine Culture (05/17/2025 12:14 PM EDT) Culture >=100,000 CFU/mL - Biotype 1 Escherichia coli ESBL(AA) MINDY 05/21/2025 12:32 PM EDT [facility] Comment: This isolate has been identified using the FDA Approved Ezoicyper CA System Edited result: Previously reported as Gram Negative Santy on 05/18/2025 at 1710 EDT. Edited result: Previously reported as Escherichia coli on 05/20/2025 at 1415 EDT. Culture >=100,000 CFU/mL - Biotype 2 Escherichia coli ESBL(AA) MINDY 05/21/2025 12:32 PM EDT [facility] Comment: This isolate has been identified using the FDA Approved Ezoicyper CA System The organism value for this [...] MICROBIOLOGY - GE NERAL ORDERABLES Final Result [facility] [address] [place] [address] * OB US Detail Anatomy (05/17/2025 12:08 PM EDT) Anatomical Region Laterality Modality Body Ultrasound 05/17/2025 11:3 5 AM EDT Impressions 05/17/2025 1:45 PM EDT The OB Ultrasound you requested has been resulted. Please navigate to the Imaging tab in VILOOP for review. This message has been generated by the interface. Narrative Procedure Note Emily Muniz MD - 05/17/2025 IMPRESSION: The OB Ultrasound you requested has been resulted. Please navigate to theImaging tab in VILOOP for review. This message has been generated by theinterface. Emerald Berger APRN, DNP IMG OB US PROCEDURES Final Result from Last 3 Months Additional Health Concerns Infection Onset Date Last Indicated Resolved Time ESBL Comment:Urine culture collected 05/17/2025 resulted positive for Escherichia coli ESBL. This patient will require contact precautions indefinitely. Do not resolve this infection. 05/17/2025 05/17/2025 Insurance [facility] MEDICAID Advance Directives * Full Code (Latest Code Status on File) Date Activated Date Inactivated Comments 08/09/2025 10:21 AM Question Answer Comments I have reviewed the capacity from the link above and, if needed, have updated to appropriate status: Yes * Full Code Date Activated Date Inactivated Comments 02/01/2023 5:11 PM 02/03/2023 2:15 PM Question Answer Comments Patient has decision-making capacity? Yes Care Teams Highballer Relationship Specialty Start Date End Date Pcp, Shruthi [address] [place] [address] PCP - General Family Medicine 02/01/23 Felecia Monreal Community Health Worker 05/17/25
--- OUTSIDE RECORDS SUMMARY | 2025-08-10 09:07 | XMS_ITS | Encounter Summary ---
Author Organization Healthcare Address [address] [place] [address] Care Team Providers Care Senior Business Development Manager Name Role Phone Pcp, No Primary Care Provider Unavailabl e Felecia Monreal Unavailable Unavailable Encounter Details Date Type Department Care Team ([facility] Contact Info) Description 05/18/2025 Results Follow-Up Medical Office Building Obstetrics and Gynecology [address], [address] [place] [address] Emerald Berger, MACHINE CAPTAIN, DNP [address] [place] [address] Social History Tobacco Use Types [...] drink first t paul in the morning ([employer]GER) to steady your nerves or to [...] documented as of this encounter Care Teams Senior Business Development Manager Relationship Specialty Start Date End Date Pcp, [place] [address] PCP - General Family Medicine 02/01/23 Felecia Monreal Community Health Worker 05/17/25 documented as of this encounter
[2025-08-14 18:08] LABS: Treponema pallidum Particle Ag Reactive (Non Reactive)
== END 2025-08-09 01:51 | disposition left against medical advice (07) ==
LOC: OBOUT 08-10 09:04
PROVIDERS: Visit Provider Nurse Practitioner Obstetrics & Gynecology
DX: O09.523 Supervision of elderly multigravida, third trimester (principal); Z3A.39 39 weeks gestation of pregnancy
CPT/HCPCS: 59025; 80048; 81002; 85025; 86592; 86593; 86780; 86850

== ENCOUNTER 2025-08-09 03:36 | Outpatient (CLI) | payer MEDICAID, SELFPAY ==
--- OUTSIDE RECORDS SUMMARY | 2025-08-09 03:39 | XMS_ITS ---
Author Organization [facility] Address [address] [place] [address] Care Team Providers Care Master Planner Name Role Phone Pcp, No Primary Care [...]
--- OUTSIDE RECORDS SUMMARY | 2025-08-09 03:39 | XMS_ITS | Encounter Summary ---
Author Organization Healthcare Address [address] [place] [address] Care Team Providers Care Starbucks Clerk Name Role Phone Pcp, No Primary Care Provider Unavailabl e Felecia Monreal Unavailable Unavailable Encounter Details Date Type Department Care Team ([facility] Contact Info) Description 07/06/2025 Telephone Medical Office Building Obstetrics and Gynecology [address], [address] [place] [address] Cindy Walden MD [address] [facility] [place] [address] Social History Tobacco Use Types [...] drink first t paul in the morning (EYE-SPANISH MEDICAL INTERPRETER) to steady your nerves or to get [...] morning apt. Please call. Best contact number: [phone] (mobile) Optimal time of day to reach caller: ANYTIME Additional comments/information from caller: None Note: Please do not reply to this message. Follow-up communication and further actions as a result of this message need to be communicated with the patient directly, if the patient is not active onMyChart. If the patient is active on MyChart, they will receive notification of the communication/outcome via [employer]. documented in this encounter Plan of Treatment [...] documented as of this encounter Care Teams Starbucks Clerk Relationship Specialty Start Date End Date Pcp, [place] [address] PCP - General Family Medicine 02/01/23 Felecia Monreal [facility] Health Worker 05/17/25 documented as of this encounter
--- OUTSIDE RECORDS SUMMARY | 2025-08-09 03:39 | XMS_ITS | Clinical Summary ---
Author Organization Healthcare Address [address] [place] [address] Care Team Providers Care Protocol Manager Name Role Phone Pcp, No Primary [...] [facility], [address] [place] [address] Cindy Walden MD 06/02/2025 2:30 PM EDT Routine Medical Office Building Obstetrics and Gynecology [address] [facility], [address] [place] [address] Emerald Berger APRN, DNP Insufficient care in third trimester (Primary Dx); Alcoholism (CMS/HCC); Schizophrenia, unspecified type (CMS/HCC); Substance use disorder; Heartburn during in third trimester; Urinary tract infection in mother during third trimester of 06/02/2025 Travel 05/22/2025 Results Follow-Up Medical Office Building Obstetrics and Gynecology [address] [facility], [address] [place] [address] Emerald Berger APRN, DNP 05/18/2025 Results Follow-Up Medical Office Building Obstetrics and Gynecology [address] [facility], [address] [place] [address] Emerald Berger APRN, DNP 05/17/2025 10:46 AM EDT - 05/17/2025 11:59 PM EDT Hospital Encounter Medical Office Building Obstetrics and Gynecology [address] [facility], [address] [place] [address] Encounter for supervision of normal , antepartum, unspecified ; Substance use disorder; AMA (advanced maternal age) multigravida 35+, unspecified trimester; Late care affecting , antepartum Discharge Disposition: Home or Self Care 05/17/2025 9:15 AM EDT Initial Medical Office Building Obstetrics and Gynecology [address] [facility], [address] [place] [address] Emerald Berger APRN, DNP GA: 27w3d 05/17/2025 Patient Outreach Medical Office Building Obstetrics and Gynecology [address] [facility], [address] [place] [address] Rah [employer]; Other (PCHW Initial Encounter) 05/17/2025 Patient Outreach Medical Office Building Obstetrics and Gynecology [address] [facility], [address] [place] [address] [employer]; Other ( Community Health Work Program Enrollment) [...] drink first t paul in the morning (EYE-INDUSTRIAL GAS SERVICER HELPER) to steady your nerves or to get [...] 2006 [facility]-Cervical Cancer Screening 2015 [facility]Y-HPV/Cotest 2015 UUX-[id number]-16 Vaccine ( - season) 2025 [facility]Y-Influenza Vaccine [...] Detected Not Detected 05/18/2025 4:20 PM EDT [facility] Urine Urine specimen / Unknown Non-blood Collection / Unknown 05/17/2025 12:14 PM EDT 05/17/2025 12:14 PM EDT Narrative [facility] - 05/18/2025 4:20 PM EDT This test is performed by the [employer] m2000 instrument for Real Time PCR C. trachomatis and N. gonorrhea. This test is FDA approved for use with endocervical, vaginal, and urine specimens. This test is used for clinical purposes. It should not be regarded as invesigational or for research. The [facility] Clinical Microbiology Laboratory is certified under the Clinical Laboratory Improvement Amendments of 1988 (CLIA-88) as qualified to perform high complexity clinical laboratory testing. us Emerald Berger APRN, DNP LAB MICROBIOLOGY - NERAL ORDERABLES Final Result Performing Organization Address City/State/[facility] Co de Phone Number [facility] [address] [place] [address] * Neisseria gonorrhea DNA by PCR (05/17/2025 12:14 PM EDT) Neisseria gonorrhea DNA PCR Result Not Detected Not Detected. 05/18/2025 4:20 PM EDT [facility] Urine Urine specimen / Unknown Non-blood Collection / Unknown 05/17/2025 12:14 PM EDT 05/17/2025 12:14 PM EDT Narrative [facility] - 05/18/2025 4:20 PM EDT This test is performed by the [employer] instrument for Real Time PCR C. trachomatis and N. gonorrhea. This test is FDA approved for use with endocervical, vaginal, and urine specimens. This test is used for clinical purposes. It should not be regarded as invesigational or for research. The [facility] Clinical Microbiology Laboratory is certified under the Clinical Laboratory Improvement Amendments of 1988 (CLIA-88) as qualified to perform high complexity clinical laboratory testing. Emerald Berger APRN, [facility] MICROBIOLOGY - NERND ORDERABLES Final Result Performing Organization Address [facility] Co de Phone Number [facility] [address] [place] [address] * (ABNORMAL) Urine Culture (05/17/2025 12:14 PM EDT) Pathologist [facility] Culture >=100,000 CFU/mL - Biotype 1 Escherichia coli ESBL(AA) MINDY 05/21/2025 12:32 PM EDT [facility] Comment: This isolate has been identified using the FDA Approved Wannyiyper [place] System Edited result: Previously reported as Gram Negative Santy on 05/18/2025 at 1710 EDT. Edited result: Previously reported as Escherichia coli on 05/20/2025 at 1415 EDT. Culture >=100,000 CFU/mL - Biotype 2 Escherichia coli ESBL(AA) MINDY 05/21/2025 12:32 PM EDT [facility] Comment: This isolate has been identified using the FDA Approved MALDI OberScharreryper [place] System The organism value for this [...] Emerald Berger APRN, DNP LAB MICROBIOLOGY - [employer] [facility] ORDERABLES Final Result Performing Organization Address City/State/[facility] Co de Phone Number [facility] [address] [place] [address] * OB US Detail Anatomy (05/17/2025 12:08 PM EDT) Anatomical Region Laterality Modality Body Ultrasound 05/17/2025 11:3 5 AM EDT Impressions 05/17/2025 1:45 PM EDT The OB Ultrasound you requested has been resulted. Please navigate to the Imaging tab in Corepair for review. This message has been generated by the interface. Narrative Procedure Note Emily Muniz MD - 05/17/2025 IMPRESSION: The OB Ultrasound you requested has been resulted. Please navigate to theImaging tab in Corepair for review. This message has been generated by [employer]. us Emerald Berger DIRECTORY COMPILER, DNP IMG OB US PROCEDURES Final Result [...] ORDERABLES Fi nal Result Performing Organization Address [facility] de Phone Number HEALTHCARE LAB [address] [place] [address] * Hepatitis C Antibody - ED (03/19/2024 2:09 AM EDT) Hepatitis C Antibody Negative Negative 03/19/2024 2:50 AM EDT [facility] Blood Venous blood specimen / Unknown Venipuncture / Unknown 03/19/2024 2:09 AM EDT 03/19/2024 2:13 AM EDT [facility] LAB BLOOD ORDERABLES Fi nal Result Performing Organization Address City/[facility] de Phone Number HEALTHCARE LAB [address] [place] [address] from Last 3 Months or Most Recently [...] Patient has decision-making capacity? Yes Care Teams Protocol Manager Relationship Specialty Start Date End Date Pcp, No [address] [place] [address] PCP - General Family Medicine 02/01/23 Felecia Monreal Community Health Worker 05/17/25
--- OUTSIDE RECORDS SUMMARY | 2025-08-09 03:39 | XMS_ITS | Encounter Summary ---
Author Organization Healthcare Address [address] [place] [address] Care Team Providers Care Database Administration Associate Name Role Phone Pcp, No Primary Care Provider Unavailabl e Felecia Monreal Unavailable Unavailable Encounter Details Date Type Department Care Team ([facility] Contact Info) Description 05/18/2025 Results Follow-Up Medical Office Building Obstetrics and Gynecology [address] [facility], [address] [place] [address] Emerald Berger, COMMISSION AUDITOR, DNP [address] [facility] [address] [place] [address] Social History Tobacco Use Types [...] drink first t paul in the morning (EYE-REHAB CARE ASSISTANT) to steady your nerves or to get [...] documented as of this encounter Care Teams Database Administration Associate Relationship Specialty Start Date End Date Pcp, [place] [address] PCP - General Family Medicine 02/01/23 Felecia Monreal Community Health Worker 05/17/25 documented as of this encounter
--- OUTSIDE RECORDS SUMMARY | 2025-08-09 03:39 | XMS_ITS | Encounter Summary ---
Author Organization Healthcare Address [address] [place] [address] Care Team Providers Care Pricing Consultant Name Role Phone Pcp, No Primary Care Provider Unavailabl e Felecia Monreal Unavailable Unavailable Encounter Details Date Type Department Care Team ([facility] Contact Info) Description 05/22/2025 Results Follow-Up Medical Office Building Obstetrics and Gynecology [address], [address] [place] [address] Emerald Berger, PHARMACOGNOSIST, DNP [address] [place] [address] Social History Tobacco Use Types [...] drink first t paul in the morning ([employer]) to steady your nerves or to get [...] documented as of this encounter Care Teams Pricing Consultant Relationship Specialty Start Date End Date Pcp, [place] [address] PCP - General Family Medicine 02/01/23 Felecia Monreal [facility] Worker 05/17/25 documented as of this encounter
[2025-08-09 03:46] VITALS: BMI 28.8
[2025-08-09 04:28] LABS: Barbiturates Screen,Urine Negative ng/ml (<200)
[2025-08-09 04:29] LABS: Benzodiazepines Screen,Urine Negative ng/ml (<200)
[2025-08-09 04:30] LABS: Amphetamine/Metha Screen,Urine Negative ng/ml (<1000)
[2025-08-09 04:32] VITALS: BP 129/64; PULSE 104; RESP 18; TEMP 36.6; O2SAT 97
[2025-08-09 04:32] LABS: Methadone Screen,Urine Negative ng/ml (<300); Opiate Screen,Urine Negative ng/ml (<300)
[2025-08-09 04:33] LABS: Phencyclidine Screen,Urine Negative ng/ml (<25)
== END 2025-08-09 06:15 | disposition left against medical advice (07) ==
LOC: OBOUT 08-10 09:07
PROVIDERS: Visit Provider Nurse Practitioner Obstetrics & Gynecology
DX: O09.523 Supervision of elderly multigravida, third trimester (principal); Z3A.39 39 weeks gestation of pregnancy
CPT/HCPCS: 59025; 80307; 80320; J1200